=== PATIENT | female | born 1940 | race African-American/Black ===

== ENCOUNTER 2017-01-29 08:14 | Inpatient (IN) | payer OTHER ==
[2017-01-06 09:55] VITALS: BMI 35.0
--- NOTE | 2017-01-06 10:27 | PAT Medication Instructions ---
Service Date Jan 06, 2017. Current Home Medication List Ascorbic Acid (Vitamin C *), 500 MG PO QAM Aspirin (Aspirin Ec), 81 MG PO QAM Calcium/Vitamin D (Os-Franco 500 Plus D), 1 TAB PO QAM Carisoprodol (Soma), 350 MG PO QID PRN for Pain Diclofenac Sodium (Topical) (Voltaren 1% Top Gel), 1 DOSE TOP PRN Flaxseed (Linseed) (Flax Seed Oil), 1 CAP PO QAM Lisinopril (Zestril), 5 MG PO QAM Multivitamin (Multivitamin), 1 TAB PO QAM Naproxen (Aleve), 440 MG PO BID Nifedipine Ext Rel (Procardia Xl Ext Rel), 30 MG PO QAM Pravastatin (Pravachol ), 20 MG PO QAM Pregabalin (Lyrica), 150 TAB PO BID [Premarin Gel], 1 DOSE TOP Medication Instructions For Your Scheduled Surgery Naproxen (Aleve), 440 MG PO BID (stop one week prior to surgery per surgeon instructions) - Hold the following medications 10 days prior to surgery: Flaxseed (Linseed) (Flax Seed Oil), 1 CAP PO QAM - Hold the following medications 24 hours prior to surgery: Premarin Gel 1 DOSE TOP Diclofenac Sodium (Topical) (Voltaren 1% Top Gel), 1 DOSE TOP PRN - Hold the following medications the morning of surgery: Lisinopril (Zestril), 5 MG PO QAM Multivitamin (Multivitamin), 1 TAB PO QAM Carisoprodol (Soma), 350 MG PO QID PRN for Pain Calcium/Vitamin D (Os-Franco 500 Plus D), 1 TAB PO QAM Ascorbic Acid (Vitamin C *), 500 MG PO QAM - Take the following medications the morning of surgery with a sip of water: Pregabalin (Lyrica), 150 TAB PO BID Nifedipine Ext Rel (Procardia Xl Ext Rel), 30 MG PO QAM Pravastatin (Pravachol ), 20 MG PO QAM Aspirin (Aspirin Ec), 81 MG PO QAM - Take the following medications as scheduled the night before surgery: Pregabalin (Lyrica), 150 TAB PO BID Carisoprodol (Soma), 350 MG PO QID PRN for Pain If you have any questions please call us at [phone] or [phone] ( Tess) or [phone]
[2017-01-06 11:05] LABS: BASO % 0.7 %; BASO ABS # 0.03 K/uL (0-0.2); COMPLETE YES; EOS % 7.2 %; HEMATOCRIT 37.8 % (37-47); IG% 0.2 %; LYMPH % 36.8 %; LYMPH ABS # 1.63 K/uL (1.2-3.4); MEAN CELL VOLUME 95.2 fL (80-100); MEAN CORPUSCULAR HEMOGLOBIN 31.2 pg (25-34); MEAN CORPUSCULAR HGB CONC 32.8 g/dl (32-36); MEAN PLATELET VOLUME 10.2 fL (7.4-10.4); MONO % 8.1 %; PLATELET COUNT 203 K/uL (130-400); RED BLOOD COUNT 3.97 M/uL (4.2-5.4); WHITE BLOOD COUNT 4.43 K/uL (4.8-10.8)
[2017-01-06 11:06] LABS: URINE APPEARANCE CLEAR (CLEAR); URINE BILIRUBIN NEG (NEG); URINE COLOR YELLOW; URINE NITRITE NEG (NEG); URINE PH 6.5 (4.5-7.5); URINE SPECIFIC GRAVITY 1.011 (1.000-1.030); UROBILINOGEN NEG (NEG); ZZUR CULT IF INDIC CLEAN CATCH NO
[2017-01-06 11:24] LABS: PARTIAL THROMBOPLASTIN RATIO 1.3; PROTHROMBIN TIME (PATIENT) 10.6 SECONDS (9.0-12.0)
[2017-01-06 11:32] LABS: MANUAL MICROSCOPIC REQUIRED? NO; REVIEW REQ? NO
--- NOTE | 2017-01-06 11:39 | DIAGNOSTIC IMAGING REPORT ---
CHEST PREADMISSION(PA/LAT) CLINICAL HISTORY: PAT preoperative evaluation COMPARISON STUDY: No previous studies for comparison. FINDINGS: Tortuosity and ectasia thoracic aorta. Lungs are clear. Diaphragms are smooth. IMPRESSION: No acute process. Electronically signed by: Papito Singh M.D. 01/06/2017 11:37 AM Dictated Date/Time: 01/06/2017 11:37 AM
[2017-01-06 12:10] LABS: BUN/CREATININE RATIO 19.5 (10-20); CREATININE 0.86 mg/dl (0.60-1.20)
--- NOTE | 2017-01-10 17:13 | HISTORY & PHYSICAL EXAMINATION ---
DATE OF ADMISSION: 01/29/2017 PREOPERATIVE HISTORY AND PHYSICAL PATIENT OF: Lis. CHIEF COMPLAINT: Left knee pain. HISTORY OF PRESENT ILLNESS: This is a 76-year-old -[place] female presents to the office with complaints of left knee pain that she has had for about a year. Pain has become worse over the last 3-4 months. She has gone through physical therapy as well as activity modification and oral pain medication without lasting relief. She ambulates with a cane. Pain is worse with weightbearing and ambulation, and is affecting her ADLs. She feels she can no longer stand the pain and would like to proceed with total knee arthroplasty. Previous x-rays have been obtained. She denies any numbness or tingling. PAST MEDICAL HISTORY: Significant for heart murmur, hypertension, history of TIA, diet-controlled diabetes, osteoarthritis, chronic back pain, peripheral neuropathy, elevated lipids, and obesity. FAMILY HISTORY: Noncontributory. SOCIAL HISTORY: The patient is . Retired. No tobacco use, no ETOH use. PREVIOUS SURGERIES: Right knee total knee arthroplasty - June 2011, left total hip arthroplasty - December 2009, epidural injections in October 2009 and September 2016, hysterectomy, and bilateral cataract surgery. ALLERGIES: KNOWN ALLERGY TO PENICILLIN, WHICH CAUSES HIVES. PREDNISONE, WHICH CAUSES CONFUSION. QUESTIONABLE SENSITIVITY TO ASPIRIN though she takes Ecotrin daily. CURRENT MEDICATIONS: Aleve 2 tablets b.i.d., calcium daily, multivitamin daily, Ecotrin 81 mg p.o. daily, lisinopril 5 mg p.o. daily, Lyrica 75 mg p.o. b.i.d., nifedipine 30 mg p.o. b.i.d., pravastatin 20 mg p.o. daily, Soma 350 mg p.o. q.i.d., vitamin B12 daily, vitamin C daily, and Voltaren 1% topical gel q.i.d. p.r.n. REVIEW OF SYSTEMS: Significant for above-stated conditions, otherwise unremarkable. PHYSICAL EXAMINATION: GENERAL: Well-developed, well-nourished elderly -[place]ian female in no acute distress. Sitting in a chair. Alert and oriented. SKIN: Warm and dry with fair turgor. No rashes or lesions. No ecchymosis or erythema. Old scar present on her right knee. HEENT: Normocephalic, atraumatic. Eyes: PERRLA, EOMI. Nares patent bilaterally without turbinate enlargement. Oropharynx without erythema or exudate. No lesions noted. Uvula midline. Oral mucosa moist. Upper and lower denture plates are present. HEART: 3/6 systolic ejection murmur noted at the left sternal border. No gallops or rubs. LUNGS: Clear to auscultation bilaterally. No crackles, rhonchi or wheezing. Good air movement. ABDOMEN: Obese. Bowel sounds present x4; soft, nontender. No organomegaly. No masses. MUSCULOSKELETAL: Left knee has no intraarticular effusion. No redness or warmth. There is focal pain with palpation over the medial and lateral joint lines. The pain extends to the proximal tibia. Flexion to just greater than 90 degrees. Full terminal extension. Stable collateral ligaments. No defect in the patellar tendon or quadriceps tendon. She is ambulatory with an antalgic gait using her cane. NEUROLOGIC: Gross sensation is intact across the lower extremities by soft touch. Peripheral pulses are 2+. Cranial nerves II-XII are intact. IMAGING DATA: Radiographic imaging previously obtained shows end-stage DJD of the left knee with tricompartmental arthritis. Periarticular osteophytes and subchondral sclerosis are also present. IMPRESSION: Left knee end-stage degenerative joint disease. PLAN: Approximately 25 minutes was spent with the patient reviewing operative procedure, postoperative recovery, physical therapy requirements and medication use. Informed written consent was obtained to proceed with left total knee arthroplasty. Postoperative prescriptions for Percocet and Coumadin will be provided at discharge from the hospital. Anticipate discharge to a fdc facility or rehabilitation hospital. She is and does not have support at home. She already has a walker. Preoperative lab work, EKG, and chest x-ray have been ordered. She has an appointment to see her PCP, Dr. Boston for medical clearance. She also has an appointment to see her [employer] SPECIALIST on January 16 for pessary removal.
[2017-01-29] VITALS (8 sets, daily range): BP systolic 112–145; BP diastolic 72–87; PULSE 77–91; TEMP 36.5–37.3; O2SAT 93–100; Ht 154.9 cm; Wt 83.7 kg
[~2017-01-29] VITALS: Ht 154.9 cm; Wt 83.7 kg
[~2017-01-29 08:14] MED LIST: ASCA500 PO; ASPI81TA28 PO; BUPIVACAINE 0.25% 30 ML VIAL ONE; BUPIVACAINE 0.5 % 5 MG/1 ML PF 10ML VIAL ONE; CALC500C70 PO; CARI350T28 PO; DICL1GEL12 TOP; FLAX1CAP11 PO; LACTATED RINGER'S 1000ML 1,000 ML IV SCH; LACTATED RINGER'S 1000ML 500 ML IV ONE; LISI-729 PO; MULT-506 PO; NAPR1TAB9 PO; NIFE30TA83 PO; PRAV20TA PO; PREG1CAP28 PO; PREMARIN TOP; ROPIVACAINE 5MG/ML 30 ML 150 MG, BUPIVACAINE/EPINEPHR 0.5% MPF 30 ML, KETOROLAC TROMETH... INFIL SCH; TRANEXAMIC ACID INJ 1,000 MG in SODIUM CHLORIDE 0.9% 100ML 100 ML IV SCH; VANCOMYCIN INJ 1,250 MG in SODIUM CHLORIDE 0.9% 250ML 250 ML IV SCH
--- NOTE | 2017-01-29 08:32 | History & Physical Bridge Note ---
H&P Re-Evaluation Bridge Note: I have examined the patient, reviewed the History & Physical and in the interval since the performance of the History & Physical I have noted the following changes of clinical significance: No changes noted
[2017-01-29] MEDS ORDERED: PANT40TA PO (09:04)
[2017-01-29] MEDS ORDERED: MIDAZOLAM HCL 1 MG/ML 2ML VIAL ONE (09:43)
[2017-01-29] MEDS ORDERED: FENTANYL CITRATE INJ 50 MCG/1 ML 2 ML VIAL ONE ×3 (09:43→12:45)
[2017-01-29] MEDS ORDERED: ORTHO JOINT ANESTHETIC ONE (11:05)
[2017-01-29] MEDS ORDERED: POVIDONE-IODINE OP SOLN 30 ML BTL ONE (11:05)
[2017-01-29] MEDS ORDERED: LIDOCAINE HCL 2% 2 ML VIAL (20MG/ML) ONE (11:08)
[2017-01-29] MEDS ORDERED: PROPOFOL IV EMULSION 10 MG/ML 20 ML VIAL IV ONE (11:09)
[2017-01-29] MEDS ORDERED: ONDANSETRON INJ 2 MG/ML 2 ML VIAL ONE (11:09)
[2017-01-29] MEDS ORDERED: EpHEDrine SULFATE INJ 50 MG/ML AMP ONE (12:46)
[2017-01-29] MEDS ORDERED: DEXAMETHASONE SOD INJ 4 MG/ML VIAL ONE (12:53)
--- NOTE | 2017-01-29 12:57 | [facility] Post Operative Brief Note ---
Immediate Operative Summary Operative Date Jan 29, 2017. Pre-Operative Diagnosis Left Knee End-Stage Degenerative Joint Disease Post-Operative Diagnosis Left Knee End-Stage Degenerative Joint Disease Procedure(s) Performed Left Total Knee Arthroplasty Surgeon Dr. Hays Relay Shop Supervisor Surgeon(s) Dr. Zeyad Quintero (Fellow)/BLANCA Hamilton Estimated Blood Loss 75 ML Findings varus/djd Fluids (cc crystalloids) 1500cc Specimens A. Left Knee Bone and Tissue Drains none Anesthesia lma/block Complication(s) None Disposition Recovery Room / PACU
--- NOTE | 2017-01-29 13:13 | OPERATIVE REPORT ---
DATE OF OPERATION: 01/29/2017 SURGEON: Dr. Hays. FIRE ADJUSTER: Dr. Koch. SECOND FIRE ADJUSTER: Maddy. No resident available. PREOPERATIVE DIAGNOSIS: Osteoarthritis with varus deformity, left knee. POSTOPERATIVE DIAGNOSIS: Same. OPERATION PERFORMED: Cemented left total knee replacement. PERIOPERATIVE SITUATION: Medically cleared female with intractable pain, varus, x-rays revealing end-stage disease with tricompartmental osteoarthritis, severe medially. At this point in time, wants to proceed with surgical treatment. OPERATION: The patient appropriately identified, site verified, consent verified, vancomycin confirmed as being given and TXA confirmed as being given. The left lower extremity was prepped and draped in usual routine fashion. Tourniquet was inflated to 300 mmHg for a total of 56 minutes. Midline exposure utilized, parapatellar arthrotomy performed, appropriate soft tissue release performed, synovectomy completed, patella everted. Distal femur resected 12 mm, proximal tibia resected 4 mm and extension gap was excellent. Femur was sized between a 2-1/2 and 3 was close to 3, so we measured 3 and cut 3. There were no problems. The flexion gap was excellent. The box cut was then made and the size 3 trial fit well. The tibia was then broached and reamed to a 3 and appropriate spacer placed and a 10 mm spacer fit well good tracking of the patella. The patella was sized to a 38, it was resected leaving 15 mm and the trial tracked well. All trial implants were then removed, the wound irrigated with Betadine pulsavaced and injected with ortho mix and the permanent cemented into position. After 12 minutes, the tourniquet deflated. After 14 minutes the knee flexed, the trial spacer removed and the wound irrigated with Betadine. Minor cement removal occurred. The permanent spacer was then seated, the knee reduced and then closed with #1 Ethibond, #1 Vicryl, 2-0 Vicryl and stainless steel clips. Appropriate dressing applied and patient transferred to recovery room in satisfactory condition having tolerated the procedure well. ESTIMATED BLOOD LOSS: 75 mL. CRYSTALLOID: 1600 mL. DVT prophylaxis with Coumadin. I attest to the content of the Intraoperative Record and any orders documented therein. Any exceptio ns are noted below.
[2017-01-29] MEDS ORDERED: ALUMINUM/MAGNESIUM/SIMETH (MAALOX MAX) 30 ML UDC PO PRN (13:15)
[2017-01-29] MEDS ORDERED: LABETALOL HCL IV 5 MG/ML 20ML IV PRN (13:15)
[2017-01-29] MEDS ORDERED: ATROPINE SULFATE 0.1 MG/ML 5ML SYR IV PRN (13:15)
[2017-01-29] MEDS ORDERED: DiphenhydrAMINE HCL 50 MG/ML VIAL IV PRN (13:15)
[2017-01-29] MEDS ORDERED: BISACODYL 10 MG SUPP PR PRN (13:15)
[2017-01-29] MEDS ORDERED: NALOXONE HCL 0.4 MG/1 ML VIAL/CARP IV PRN (13:15)
[2017-01-29] MEDS ORDERED: EpHEDrine SULFATE INJ 50 MG/ML AMP IV PRN (13:15)
[2017-01-29] MEDS ORDERED: ACETAMINOPHEN 325 MG TAB PO PRN (13:15)
[2017-01-29] MEDS ORDERED: OXYCODONE HCL IR 5 MG TAB (IMMEDIATE RELEASE) PO PRN (13:15)
[2017-01-29] MEDS ORDERED: METOCLOPRAMIDE HCL INJ 5 MG/ML 2 ML VIAL IV PRN (13:15)
[2017-01-29] MEDS ORDERED: ACETAMINOPHEN IV 100 ML IV PRN (13:15)
[2017-01-29] MEDS ORDERED: ONDANSETRON INJ 2 MG/ML 2 ML VIAL IV PRN ×2 (13:15)
[2017-01-29] MEDS ORDERED: PROMETHAZINE HCL INJ 12.5 MG in SODIUM CHLORIDE 0.9% 50ML 50 ML IV PRN (13:15)
[2017-01-29] MEDS ORDERED: MoRPHine SULFATE 2 MG/ML CARP IV PRN (13:15)
[2017-01-29] MEDS ORDERED: HYDROmorphone INJ 1 MG/ML SYR IV PRN (13:15)
[2017-01-29] MEDS ORDERED: MAGNESIUM HYDROXIDE SUSP 30 ML UDC PO PRN (13:15)
[2017-01-29] MEDS ORDERED: MoRPHine SULFATE 4 MG/ML 1 ML CARP\\VIAL IV PRN (13:30)
--- NOTE | 2017-01-29 14:00 | DIAGNOSTIC IMAGING REPORT ---
LEFT KNEE 1 OR 2 VIEWS ROUTINE CLINICAL HISTORY: Left knee degenerative arthritis. Arthroplasty. COMPARISON: Left knee radiographs August 08, 2016. FINDINGS: Alignment of the total left knee arthroplasty is anatomic. There is no periprosthetic fracture or unexpected radiopaque foreign body. Skin adriana are present. IMPRESSION: Expected findings following total left knee arthroplasty. Electronically signed by: Marko Eastman M.D. 01/29/2017 1:57 PM Dictated Date/Time: 01/29/2017 1:57 PM
--- NOTE | 2017-01-29 14:02 | PROGRESS NOTE ---
DATE: 01/29/2017 Postop check. The patient seen in recovery room. She is awake, alert. Has no nausea, vomiting, chest pain, shortness of breath, fever or chills. Vital signs are stable. She is afebrile. Neurovascular check femoral sciatic nerve is excellent. Hip is located. X-ray AP and lateral of the left knee reveals well fixed, well aligned knee replacement. ASSESSMENT: Doing well. Continue care pathway.
--- NOTE | 2017-01-29 14:04 | Anesthesiology Progress Note ---
Anesthesia Post Op Note Date & Time Jan 29, 2017 at 14:02 Vital Signs Pain Intensity: 0 Vital Signs Past 12 Hours Date Time Temp Pulse Resp B/P Pulse Ox O2 Delivery O2 Flow Rate FiO2 01/29/17 13:50 37.0 85 16 156/89 99 Nasal Cannula 2 01/29/17 13:41 84 11 01/29/17 13:41 84 11 156/87 98 01/29/17 13:36 84 21 01/29/17 13:36 84 21 145/75 100 01/29/17 13:31 89 20 152/84 97 01/29/17 13:31 87 20 01/29/17 13:28 156/88 01/29/17 13:25 82 16 148/79 98 Mask 10 01/29/17 13:18 37.0 83 14 128/70 99 Mask 10 01/29/17 09:04 36.8 77 18 145/84 100 Room Air Notes Mental Status: alert / awake / arousable, participated in evaluation Pt Amnestic to Procedure: Yes Nausea / Vomiting: adequately controlled Pain: adequately controlled Airway Patency, RR, SpO2: stable & adequate BP & HR: stable & adequate Hydration State: stable & adequate Anesthetic Complications: no major complications apparent
--- NOTE | 2017-01-29 14:11 | OPERATIVE REPORT ---
DATE OF OPERATION: 01/29/2017 PREOPERATIVE DIAGNOSIS: Left knee end-stage degenerative joint disease. POSTOPERATIVE DIAGNOSIS: Left knee same. PROCEDURE: Left knee total knee arthroplasty using DePuy implants. SURGEON: Dr. Hays. RAG WASHER: Dr. Koch. SECOND EXTRUSION PRESS SUPERVISOR: Brain Castañeda PA-C. HISTORY OF PRESENT ILLNESS: This 76-year-old female presented to the office with complaints of left knee pain that had been ongoing for several months. Pain had become worse with time. It was affecting her ADLs. She elected to proceed with surgical intervention after being educated about potential risks and outcomes. OPERATION: The patient was administered regional block and then taken to the operating room, where she was given general anesthesia. She was prepped and draped in the usual sterile fashion. Please see Dr. Hays's operative report for specifics of the procedure. I was present for the entire case from initial patient positioning through final wound closure. Assistance was provided in patient positioning, tissue retraction, hemostasis, trial implant placement, final implant placement, and final wound closure. The patient was taken to the recovery room in satisfactory condition. I attest to the content of the Intraoperative Record and any orders documented therein. Any exceptio ns are noted below.
[2017-01-29] MEDS ORDERED: D5W AND 1/2NSS + 20MEQ KCL 1,000 ML IV SCH (15:15)
--- NOTE | 2017-01-29 15:45 | Medical Consult ---
Consultation Date of Consultation: Jan 29, 2017. Attending Physician: Devan Hays M.D. Reason for Consultation: med mgmt History of Present Illness This is a 76 y/o male with PMHx of HTN, Dyslipidemia and other problems as outlined below who presents POD 0 s/p L TKA performed by Dr. Loredo. Pt is doing well post-operatively. She denies any pain. Pt denies fever/chills, chest pain, SOB, abd pain, N/V, bowel or bladder issues, LE edema ,calf pain, lightheadedness/dizziness. Past Medical/Surgical History Medical Problems: (1) Depression Status: Chronic (2) Dyslipidemia Status: Chronic (3) GERD (gastroesophageal reflux disease) Status: Chronic (4) HTN (hypertension) Status: Chronic Surgical Problems: (1) H/O cataract removal with insertion of prosthetic lens Status: Resolved (2) History of total left hip arthroplasty Status: Resolved (3) Hx of total knee arthroplasty Permanent Comment: R knee Status: Resolved Social History Smoking Status: Never Smoker Alcohol Use: none Drug Use: none Allergies Coded Allergies: Penicillin G (Verified Allergy, Intermediate, HIVES, 01/29/17) Aspirin (Verified Allergy, Unknown, RASH, 01/29/17) REACTION IS FUNGAL RASH Statins (Unverified Allergy, Unknown, MUSCLE ACHES, 01/29/17) Cyclobenzaprine (Verified Adverse Reaction, Unknown, sedation per PCP note , 01/29/17) Prednisone (Verified Adverse Reaction, Unknown, LOOPY DISORIENTED, 01/29/17 ) Home Medications Active Reported Protonix (Pantoprazole Sodium) 40 Mg Tab 1 Tab PO DAILY 30 Days [Premarin Gel] 1 Dose TOP Aspirin Ec (Aspirin) 81 Mg Tab 81 Mg PO QAM Os-Franco 500 Plus D (Calcium/Vitamin D) Tab 1 Tab PO QAM Aleve (Naproxen) 220 Mg Tab 440 Mg PO BID Pravachol (Pravastatin Sodium) 20 Mg Tab 20 Mg PO QAM Voltaren 1% Top Gel (Diclofenac Sodium (Topical)) 1 % Gel 1 Dose TOP PRN Zestril (Lisinopril) 5 Mg Tab 5 Mg PO QAM Flax Seed Oil (Flaxseed (Linseed)) 1 Cap Cap 1 Cap PO QAM Lyrica (Pregabalin) 75 Mg Cap 150 Tab PO BID Vitamin C * (Ascorbic Acid) 500 Mg Tab 500 Mg PO QAM Multivitamin (Multivitamins) Tab 1 Tab PO QAM Soma (Carisoprodol) 350 Mg Tab 350 Mg PO QID PRN Procardia Xl Ext Rel (Nifedipine) 30 Mg Tabcr 30 Mg PO QAM Current Inpatient Medications Current Inpatient Medications Medications (Trade) Dose Ordered Sig/Jesús Route Start Time Stop Time Status Last Admin Dose Admin Vancomycin HCl 1250 mg/Sodium Chloride 275 ml @ 125 mls/hr 0600 IV 01/29/17 06:00 01/29/17 16:00 01/29/17 08:58 125 MLS/HR Tranexamic Acid/ Sodium Chloride (Cyklokapron Inj/ Nss 100ml) 110 ml @ 660 mls/hr TODAY@0600 IV 01/29/17 06:00 01/29/17 15:59 01/29/17 10:26 660 MLS/HR Hydromorphone HCl (Dilaudid Inj) 0.2 mg Q5M PRN IV 01/29/17 13:15 01/29/17 18:15 Naloxone HCl (Narcan Inj) 0.2 mg Q2M PRN IV 01/29/17 13:15 01/29/17 18:15 Ondansetron HCl 4 mg 4 mg ONE PRN IV 01/29/17 13:15 01/29/17 18:15 Promethazine HCl/ Sodium Chloride (Phenergan Inj/ Nss 50ml) 50.5 ml @ 202 mls/hr ONE PRN IV 01/29/17 13:15 01/29/17 18:15 Labetalol HCl (Normodyne IV) 5 mg Q5M PRN IV 01/29/17 13:15 01/29/17 18:15 Ephedrine Sulfate (EpHEDrine SULFATE INJ) 5 mg Q5M PRN IV 01/29/17 13:15 01/29/17 18:15 Atropine Sulfate 0.5 mg 0.5 mg Q1M PRN IV 01/29/17 13:15 01/29/17 18:15 Potassium Chloride/Dextrose/ Sod Cl 1,000 ml @ 100 mls/hr Q10H IV 01/29/17 15:15 01/30/17 13:12 Vancomycin HCl/ Sodium Chloride (Vancomycin Inj/ Nss 250ml) 275 ml @ 125 mls/hr TODAY@2100 IV 01/29/17 21:00 01/29/17 23:11 Ketorolac Tromethamine (Toradol Inj) 15 mg Q6H IV. 01/29/17 16:00 01/30/17 13:14 Oxycodone HCl (Roxicodone Immediate Rel Tab) 1 TABLET FOR PAIN RATING... Q4H PRN PO 01/29/17 13:15 02/12/17 13:14 Morphine Sulfate (MoRPHine SULFATE INJ) 2 mg Q1H PRN IV 01/29/17 13:15 02/12/17 13:14 Acetaminophen (Tylenol Tab) 650 mg Q6H PRN PO 01/29/17 13:15 02/28/17 13:14 Magnesium Hydroxide (Milk Of Magnesia Susp) 30 ml Q6H PRN PO 01/29/17 13:15 02/28/17 13:14 Bisacodyl (Dulcolax Supp) 10 mg DAILY PRN GA 01/29/17 13:15 02/28/17 13:14 Docusate Sodium (coLACE CAP) 100 mg BID PO 01/29/17 21:00 02/28/17 20:59 Diphenhydramine HCl (Benadryl Inj) 25 mg Q8H PRN IV 01/29/17 13:15 02/28/17 13:14 Al Hydrox/Mg Hydrox/Simethicone (Maalox Max Susp) 15 ml Q4H PRN PO 01/29/17 13:15 02/28/17 13:14 Multivitamins (Multivitamin Tab) 1 tab QAM PO 01/30/17 09:00 03/01/17 08:59 Ondansetron HCl (Zofran Inj) 4 mg Q6H PRN IV 01/29/17 13:15 02/28/17 13:14 Metoclopramide HCl (Reglan Inj) 10 mg Q6H PRN IV 01/29/17 13:15 02/28/17 13:14 Ferrous Gluconate (Ferrous Gluconate Tab) 324 mg TIDM PO 01/29/17 17:45 02/28/17 17:59 Pantoprazole Sodium 40 mg 40 mg QAM PO 01/30/17 09:00 03/01/17 08:59 Tranexamic Acid/ Sodium Chloride (Cyklokapron Inj/ Nss 100ml) 110 ml @ 660 mls/hr TODAY@1900 IV 01/29/17 19:00 01/29/17 19:09 Aspirin (Ecotrin Tab) 81 mg QAM PO 01/30/17 09:00 03/01/17 08:59 Lisinopril (Zestril Tab) 5 mg QAM PO 01/30/17 09:00 03/01/17 08:59 Nifedipine (Procardia Xl Tab) 30 mg QAM PO 01/30/17 09:00 03/01/17 08:59 Pravastatin Sodium (Pravachol Tab) 20 mg QAM PO 01/30/17 09:00 03/01/17 08:59 Pregabalin 150 mg 150 mg BID PO 01/29/17 21:00 02/28/17 20:59 Acetaminophen (Ofirmev Iv) 100 ml @ 400 mls/hr Q8H PRN IV 01/29/17 13:15 01/30/17 11:00 Morphine Sulfate (MoRPHine SULFATE INJ) 4 mg Q1H PRN IV 01/29/17 13:30 02/12/17 13:29 Review of Systems Constitutional: No chills, No fatigue, No fever, No sweats, No weakness Eyes: No worsening of vision ENT: No hearing loss Respiratory: No cough, No shortness of breath Cardiovascular: No chest pain, No claudication, No edema Abdomen: No constipation, No diarrhea, No nausea, No pain, No vomiting Musculoskeletal: No joint pain Genitourinary - Female: No dysuria Neurologic: No weakness Psychiatric: No depression symptoms Endocrine: No fatigue Hematologic / Lymphatic: No abnormal bleeding/bruising Integumentary: No new/changing skin lesions Physical Exam Date Time Temp Pulse Resp B/P Pulse Ox O2 Delivery O2 Flow Rate FiO2 01/29/17 14:30 96 Nasal Cannula 2.0 01/29/17 14:30 36.7 91 16 133/79 96 Nasal Cannula 2.0 01/29/17 14:23 88 18 01/29/17 14:23 88 18 96 01/29/17 14:21 156/86 01/29/17 14:18 86 18 01/29/17 14:18 87 18 97 01/29/17 14:15 149/84 01/29/17 14:13 86 17 01/29/17 14:13 86 17 98 01/29/17 14:12 86 15 100 01/29/17 14:12 86 15 01/29/17 14:11 158/87 01/29/17 14:07 87 15 99 01/29/17 14:07 87 15 01/29/17 14:06 154/95 01/29/17 14:02 86 17 98 01/29/17 14:02 86 17 01/29/17 14:01 153/87 01/29/17 13:57 87 15 01/29/17 13:57 87 15 99 01/29/17 13:56 156/89 01/29/17 13:52 84 21 01/29/17 13:52 83 21 98 01/29/17 13:51 157/84 01/29/17 13:50 37.0 85 16 156/89 99 Nasal Cannula 2 01/29/17 13:47 84 22 97 01/29/17 13:47 85 22 01/29/17 13:46 150/86 01/29/17 13:42 85 16 98 01/29/17 13:42 85 16 01/29/17 13:41 84 11 01/29/17 13:41 84 11 156/87 98 01/29/17 13:36 84 21 01/29/17 13:36 84 21 145/75 100 01/29/17 13:31 89 20 152/84 97 01/29/17 13:31 87 20 01/29/17 13:28 156/88 01/29/17 13:25 82 16 148/79 98 Mask 10 01/29/17 13:18 37.0 83 14 128/70 99 Mask 10 01/29/17 09:04 36.8 77 18 145/84 100 Room Air General Appearance: WD/WN, no apparent distress, + pertinent finding (Pt is laying in bed with family at bedside ) Head: normocephalic, atraumatic Eyes: normal inspection ENT: hearing grossly normal Neck: supple Respiratory/Chest: chest non-tender, lungs clear, normal breath sounds, no respiratory distress Cardiovascular: regular rate, rhythm, + systolic murmur Abdomen/GI: normal bowel sounds, non tender, soft Back: normal inspection Extremities/Musculoskelatal: no calf tenderness, no pedal edema, + pertinent finding (surgical dressing in place over L knee; no drain noted) Neurologic/Psych: alert, normal mood/affect, oriented x 3 Skin: normal color, warm/dry Laboratory Results Last 24 Hours Test 01/29/17 08:54 01/29/17 13:16 Bedside Glucose 102 mg/dl 123 mg/dl Assessment & Plan L KNEE DJD S/P L TKA -POD 0; surgery performed by Dr. Loredo -post-operative pain well managed -monitor for acute blood loss with daily H&H -hold ASA until cleared with surgical team -pt encouraged to utilize spirometry to prevent post-op infection -PT/OT -activity and wound care orders per ortho protocol -will continue to follow DIET-CONTROLLED DM 2 -no longer requiring medication -diabetic diet -monitor BSG AC HS HTN -BP stable -cont lisinopril and nifedipine -monitor DYSLIPIDEMIA -cont statin DEPRESSION -stable -cont Celexa GERD -cont PPI DVT PROPHYLAXIS -per ortho protocol CODE STATUS -FULL CODE status DISPO -per ortho. Pt seen in collaboration with Dr. Presley. Please see her addendum for further details. Thanks! -Of note: patient will be followed by Dr. Jin starting tomorrow AM.
[2017-01-29] MEDS: KETOROLAC TROMETHAMINE 15 MG/ML VIAL IV. SCH ×2 (15:46→21:42)
[2017-01-29] MEDS ORDERED: WARFARIN SOD 5 MG TAB PO ONE (16:00)
--- NOTE | 2017-01-29 16:46 | Progress Note ---
Progress Note Date of Service Jan 29, 2017. Progress Note Significant for heart murmur, hypertension, history of TIA, diet-controlled diabetes, osteoarthritis, chronic back pain, peripheral neuropathy, elevated lipids, and obesity. Patient was seen and evaluated with FANI Villa. Patient is status post left knee arthroplasty. Patient s pain is well controlled. No chest pain, nausea, vomiting, fever, chills. Exam: Gen: AAOX3, no distress Lungs- AEBE, no wheezing Heart- S1, S2 normal , murmur + Ext- S/P left knee arthroplasty A/P: S/P LEFT KNEE ARTHROPLASY pod # 0 -Pain mx, Wound care, DVT prophylaxis per primary team -Monitor H & H HTN- Stable -Continue with home medication DIABETES MELLITUS, DIET CONTROLLED -ISS, Accuchecks DVT PROPHYLAXIS Per primary team
[2017-01-29] MEDS ORDERED: WARF2TAB PO (16:47)
[2017-01-29] MEDS ORDERED: OXYC-57 PO (16:47)
[2017-01-29] MEDS: FERROUS GLUCONATE 324 MG TAB PO SCH (17:38)
[2017-01-29] MEDS ORDERED: TRANEXAMIC ACID INJ 1,000 MG in SODIUM CHLORIDE 0.9% 100ML 100 ML IV SCH (19:00)
[2017-01-29] MEDS: PREGABALIN 75 MG CAP PO SCH (20:53)
[2017-01-29] MEDS: DOCUSATE SODIUM 100 MG CAP PO SCH (20:54)
[2017-01-29] MEDS ORDERED: VANCOMYCIN INJ 1,250 MG in SODIUM CHLORIDE 0.9% 250ML 250 ML IV SCH (21:00)
[2017-01-29] MEDS ORDERED: NURSING VERBAL MED ORDER ONE (21:15)
[2017-01-30] VITALS (8 sets, daily range): BP systolic 96–147; BP diastolic 56–82; PULSE 64–102; TEMP 36.3–37.6; O2SAT 91–98
[2017-01-30] MEDS: KETOROLAC TROMETHAMINE 15 MG/ML VIAL IV. SCH ×2 (04:22→10:32)
[2017-01-30 06:33] LABS: MEAN CELL VOLUME 95.8 fL (80-100); MEAN CORPUSCULAR HEMOGLOBIN 31.3 pg (25-34); MEAN CORPUSCULAR HGB CONC 32.7 g/dl (32-36); PLATELET COUNT 155 K/uL (130-400); RED BLOOD COUNT 3.13 M/uL (4.2-5.4); WHITE BLOOD COUNT 10.27 K/uL (4.8-10.8)
[2017-01-30 06:56] LABS: BUN/CREATININE RATIO 15.9 (10-20); CALCIUM 8.1 mg/dl (8.5-10.1); CREATININE 0.89 mg/dl (0.60-1.20); POTASSIUM 3.8 mmol/L (3.5-5.1)
--- NOTE | 2017-01-30 07:15 | PROGRESS NOTE ---
DATE: 01/30/2017 Status post left total knee replacement, postop day #1 and doing well. Has no major issues of pain, nausea, vomiting, chest pain, shortness of breath, fever or chills. Vital signs are stable. She is afebrile. Wound dressing clean, dry and intact. Femoral sciatic nerve intact. No evidence of DVT. Hematocrit stable at 30. INR 1.0. Chemistry is pending. Glucose is in the 180 range. ASSESSMENT: Status post left total knee replacement. Continue with care pathway, Social service PT, OT assessments today. Potential transfer to [facility] per her request. We will see if that is available. She lives alone. She will need social service assessment NITHYA.
[2017-01-30] MEDS: DOCUSATE SODIUM 100 MG CAP PO SCH ×2 (08:44→20:56)
[2017-01-30] MEDS: ASPIRIN 81 MG ECTAB PO SCH (08:44)
[2017-01-30] MEDS: PREGABALIN 75 MG CAP PO SCH ×2 (08:44→20:59)
[2017-01-30] MEDS: FERROUS GLUCONATE 324 MG TAB PO SCH ×3 (08:44→18:13)
[2017-01-30] MEDS: MULTIVITAMIN TAB PO SCH (08:45)
[2017-01-30] MEDS: PRAVASTATIN SOD 20 MG TAB PO SCH (08:45)
[2017-01-30] MEDS: PANTOprazole SOD 40 MG TAB PO SCH (08:45)
--- NOTE | 2017-01-30 08:50 | Orthopedic Progress Note ---
Orthopedic Progress Note Date of Service Jan 30, 2017. Subjective Post OP Day: 1 Reports: feeling well, pain controlled w PO medications, Denies: SOB, calf pain , chest pain, complaints, light headedness, nausea / vomiting, using DIRECTOR OF REIMBURSEMENT Objective calves soft nontender, N/V intact, capillary refill less than 2 sec., dressing C /D/I, incision C/D/I, A&O x3, toes mobile, CMS intact Date Time Temp Pulse Resp B/P Pulse Ox O2 Delivery O2 Flow Rate FiO2 01/30/17 07:56 36.7 93 16 110/72 91 Room Air 01/30/17 07:25 Room Air 01/30/17 03:28 37.1 102 16 133/79 91 Room Air 01/30/17 00:00 Room Air 01/29/17 23:15 36.8 78 16 112/72 93 Room Air 01/29/17 20:19 36.7 85 16 130/73 95 Room Air 01/29/17 17:29 37.3 81 19 145/79 100 Nasal Cannula 2.0 01/29/17 16:35 36.7 89 16 129/79 100 Nasal Cannula 2.0 01/29/17 15:30 Room Air 01/29/17 15:28 36.5 87 16 138/87 100 Room Air 2.0 01/29/17 15:00 87 16 133/77 98 Nasal Cannula 2.0 01/29/17 14:30 96 Nasal Cannula 2.0 01/29/17 14:30 36.7 91 16 133/79 96 Nasal Cannula 2.0 01/29/17 14:23 88 18 01/29/17 14:23 88 18 96 01/29/17 14:21 156/86 01/29/17 14:18 86 18 01/29/17 14:18 87 18 97 01/29/17 14:15 149/84 01/29/17 14:13 86 17 01/29/17 14:13 86 17 98 01/29/17 14:12 86 15 100 01/29/17 14:12 86 15 01/29/17 14:11 158/87 01/29/17 14:07 87 15 99 01/29/17 14:07 87 15 01/29/17 14:06 154/95 01/29/17 14:02 86 17 98 01/29/17 14:02 86 17 01/29/17 14:01 153/87 01/29/17 13:57 87 15 01/29/17 13:57 87 15 99 01/29/17 13:56 156/89 01/29/17 13:52 84 21 01/29/17 13:52 83 21 98 01/29/17 13:51 157/84 01/29/17 13:50 37.0 85 16 156/89 99 Nasal Cannula 2 01/29/17 13:47 84 22 97 01/29/17 13:47 85 22 01/29/17 13:46 150/86 01/29/17 13:42 85 16 98 01/29/17 13:42 85 16 01/29/17 13:41 84 11 01/29/17 13:41 84 11 156/87 98 01/29/17 13:36 84 21 01/29/17 13:36 84 21 145/75 100 01/29/17 13:31 89 20 152/84 97 01/29/17 13:31 87 20 01/29/17 13:28 156/88 01/29/17 13:25 82 16 148/79 98 Mask 10 01/29/17 13:18 37.0 83 14 128/70 99 Mask 10 01/29/17 09:04 36.8 77 18 145/84 100 Room Air Laboratory Results 24 Hours: Test 01/30/17 05:40 Hematocrit 30.0 % Hemoglobin 9.8 g/dL Prothromb Time International Ratio 1.0 Prothrombin Time 11.0 SECONDS Assessment & Plan Assessment: Day 1 s/p Left total knee arthroplasty Plan: PT/OT today Ice with EZ wrap WBAT on left lower extremity with immobilizer and walker for first 48 hrs post op PO Coumadin for DVT Prophylaxis (INR goal of 1.8-2.2) Teds and foot pumps for DVT Prophylaxis. Awaiting confirmation for Rehab Facility ([facility]) Pain control with PO meds. Possible discharge today if bed at Rehab Facility available. Discharge Planning Discharge Planning: rehab hospital Pain Management: Percocet DVT Prophylaxis: TEDs, SCDs, Coumadin Therapy: Physical Therapy, Occupational Therapy
[2017-01-30] MEDS ORDERED: LISINOPRIL 5 MG TAB PO SCH (09:00)
[2017-01-30] MEDS ORDERED: NIFEdipine 30 MG CR TAB PO SCH (09:00)
[2017-01-30] MEDS ORDERED: SODIUM CHLORIDE 0.9% 1000ML 1,000 ML IV SCH (14:30)
[2017-01-30 15:13] LABS: HEMATOCRIT 29.2 % (37-47)
[2017-01-30] MEDS ORDERED: NSS + 20MEQ KCL 1000ML 1,000 ML IV SCH (15:15)
[2017-01-30] MEDS ORDERED: WARFARIN SOD 5 MG TAB PO SCH (16:00)
[2017-01-30 16:01] LABS: BUN/CREATININE RATIO 16.4 (10-20); CALCIUM 8.3 mg/dl (8.5-10.1); CREATININE 1.3 mg/dl (0.60-1.20); POTASSIUM 4.1 mmol/L (3.5-5.1)
[2017-01-30] MEDS ORDERED: HYDROmorphone INJ 0.5 MG/0.5 ML SYR IV PRN (16:30)
--- NOTE | 2017-01-30 16:38 | PROGRESS NOTE ---
DATE: 01/30/2017 The patient felt a little fuzzy this morning around medication. She is feeling better now. At this point in time she has some blood work ordered, which reveals a potassium to be 4.1 and her hematocrit is stable at 30. She does not need any other blood work ordered, I will cancel this. She does not need IV fluid, she is not dehydrated. She needs to have encouraged p.o. intake and encouraged sitting. Need to hold her Vasotec since the hypotension is likely based on medication, discontinue the narcotics and discontinue the Benadryl it is not indicated in this age group, p.r.n. pain medication with Tylenol and Dilaudid.
--- NOTE | 2017-01-30 17:29 | Progress Note ---
Medicine Progress Note Date & Time of Visit: Jan 30, 2017 at 17:20. Subjective patient seen resting in bed states she feels dizzy when standing, feels "foggy", upper extremities feel weak denies any focal weakness, numbness, slurring of speech denies chest pain, dyspnea, nausea knee pain is minimal no other symptoms Objective Last 8 Hrs Date Time Temp Pulse Resp B/P Pulse Ox O2 Delivery O2 Flow Rate FiO2 01/30/17 15:47 37.6 92 17 127/82 98 Room Air 01/30/17 13:14 95 18 96/56 95 Room Air 01/30/17 12:30 36.8 64 12 98/63 92 Room Air Physical Exam: General- oriented x 3, not in distress, speaks in sentences with no effort Head- atraumatic Eyes- EOMI, anicteric ENT- (+) dry oral mucosa Neck- supple, no JVD, no adenopathy, Lungs- clear breath sounds bilaterally Heart- normal rate, regular rhythm; no murmurs Abdomen- normal bowel sounds, soft, nontender Extremities- no pretibial edema left knee with dressing in place Neuro- alert, oriented x 3; no gross focal deficits Skin- warm & dry Laboratory Results: Last 24 Hours Test 01/29/17 20:54 01/30/17 05:40 01/30/17 08:07 01/30/17 12:08 Bedside Glucose 185 mg/dl 134 mg/dl 183 mg/dl White Blood Count 10.27 K/uL Red Blood Count 3.13 M/uL Hemoglobin 9.8 g/dL Hematocrit 30.0 % Mean Corpuscular Volume 95.8 fL Mean Corpuscular Hemoglobin 31.3 pg Mean Corpuscular Hemoglobin Concent 32.7 g/dl RDW Standard Deviation 47.2 fL RDW Coefficient of Variation 13.5 % Platelet Count 155 K/uL Mean Platelet Volume 10.0 fL Prothrombin Time 11.0 SECONDS Prothromb Time International Ratio 1.0 Sodium Level 140 mmol/L Potassium Level 3.8 mmol/L Chloride Level 107 mmol/L Carbon Dioxide Level 27 mmol/L Anion Gap 6.0 mmol/L Blood Urea Nitrogen 14 mg/dl Creatinine 0.89 mg/dl Est Creatinine Clear Calc Drug Dose 51.9 ml/min Estimated GFR () 72.5 Estimated GFR (Non- 62.5 BUN/Creatinine Ratio 15.9 Random Glucose 164 mg/dl Calcium Level 8.1 mg/dl Test 01/30/17 15:05 01/30/17 17:05 Hemoglobin 9.5 g/dL Hematocrit 29.2 % Sodium Level 139 mmol/L Potassium Level 4.1 mmol/L Chloride Level 106 mmol/L Carbon Dioxide Level 29 mmol/L Anion Gap 4.0 mmol/L Blood Urea Nitrogen 21 mg/dl Creatinine 1.30 mg/dl Est Creatinine Clear Calc Drug Dose 35.5 ml/min Estimated GFR () 45.8 Estimated GFR (Non- 39.5 BUN/Creatinine Ratio 16.4 Random Glucose 181 mg/dl Calcium Level 8.3 mg/dl Magnesium Level 2.0 mg/dl Bedside Glucose 167 mg/dl Assessment & Plan DIZZINESS - possibly from Oxycodone d/c Oxycodone for now monitor while on narcotics - possibly from Borderline BP HOLD Lisinopril, Nifedipine IV fluids recommended monitor BP ELEVATED CREA - crea increased from 0.8 to 1.3 - IV fluids recommended monitor crea ANEMIA - monitor H&H L KNEE DJD S/P L TKA - post op pain well controlled coumadin started for DVT prophylaxis DIET-CONTROLLED DM 2 -diabetic diet -monitor BSG AC HS HTN management as noted below DYSLIPIDEMIA -cont statin DEPRESSION -stable -cont Celexa GERD -cont PPI DVT PROPHYLAXIS on coumadin Thank you for this consultation. We will follow the patient with you during their hospital stay. You can reach a member of the [facility] Hospitalist Team 28/04 via pager @ . Current Inpatient Medications: Current Inpatient Medications Medications (Trade) Dose Ordered Sig/Jesús Route Start Time Stop Time Status Last Admin Dose Admin Acetaminophen (Tylenol Tab) 650 mg Q6H PRN PO 01/29/17 13:15 02/28/17 13:14 Magnesium Hydroxide (Milk Of Magnesia Susp) 30 ml Q6H PRN PO 01/29/17 13:15 02/28/17 13:14 Bisacodyl (Dulcolax Supp) 10 mg DAILY PRN NH 01/29/17 13:15 02/28/17 13:14 Docusate Sodium (coLACE CAP) 100 mg BID PO 01/29/17 21:00 02/28/17 20:59 01/30/17 08:44 100 MG Al Hydrox/Mg Hydrox/Simethicone (Maalox Max Susp) 15 ml Q4H PRN PO 01/29/17 13:15 02/28/17 13:14 Multivitamins (Multivitamin Tab) 1 tab QAM PO 01/30/17 09:00 03/01/17 08:59 01/30/17 08:45 1 TAB Ondansetron HCl (Zofran Inj) 4 mg Q6H PRN IV 01/29/17 13:15 02/28/17 13:14 Metoclopramide HCl (Reglan Inj) 10 mg Q6H PRN IV 01/29/17 13:15 02/28/17 13:14 Ferrous Gluconate (Ferrous Gluconate Tab) 324 mg TIDM PO 01/29/17 17:45 02/28/17 17:59 01/30/17 12:41 324 MG Pantoprazole Sodium (Protonix Tab) 40 mg QAM PO 01/30/17 09:00 03/01/17 08:59 01/30/17 08:45 40 MG Aspirin (Ecotrin Tab) 81 mg QAM PO 01/30/17 09:00 03/01/17 08:59 01/30/17 08:44 81 MG Pravastatin Sodium (Pravachol Tab) 20 mg QAM PO 01/30/17 09:00 03/01/17 08:59 01/30/17 08:45 20 MG Pregabalin (Lyrica Cap) 150 mg BID PO 01/29/17 21:00 02/28/17 20:59 01/30/17 08:44 150 MG Hydromorphone HCl 0.5 mg 0.5 mg Q2H PRN IV 01/30/17 16:30 02/13/17 16:29 Acetaminophen/ Empty Bag (Ofirmev Iv/ Empty Iv Bag 100ml) 100 ml @ 400 mls/hr Q8H IV 01/30/17 18:00 03/01/17 17:59
[2017-01-30] MEDS: ACETAMINOPHEN IV 1,000 MG in EMPTY BAG 0 ML IV SCH (18:14)
[2017-01-31] MEDS: ACETAMINOPHEN IV 1,000 MG in EMPTY BAG 0 ML IV SCH ×2 (03:26→09:36)
[2017-01-31 06:29] LABS: BASO % 0.1 %; BASO ABS # 0.01 K/uL (0-0.2); COMPLETE YES; EOS % 0.7 %; HEMATOCRIT 28.3 % (37-47); IG% 0.4 %; LYMPH % 7.9 %; LYMPH ABS # 0.82 K/uL (1.2-3.4); MEAN CELL VOLUME 95.6 fL (80-100); MEAN CORPUSCULAR HEMOGLOBIN 31.1 pg (25-34); MEAN CORPUSCULAR HGB CONC 32.5 g/dl (32-36); MEAN PLATELET VOLUME 10.3 fL (7.4-10.4); MONO % 11.6 %; NEUT % 79.3 %; PLATELET COUNT 129 K/uL (130-400); RED BLOOD COUNT 2.96 M/uL (4.2-5.4); WHITE BLOOD COUNT 10.44 K/uL (4.8-10.8)
[2017-01-31 06:36] LABS: INR 1.1 (0.9-1.1); PROTHROMBIN TIME (PATIENT) 12.2 SECONDS (9.0-12.0)
--- NOTE | 2017-01-31 07:09 | PROGRESS NOTE ---
DATE: 01/31/2017 Postop day #2 status post left total knee replacement. At this point in time the patient denies any chest pain, shortness of breath, fevers, chills, nausea, vomiting or headache. She states she feels her usual self. She feels much better than yesterday. Vital signs are stable. She is afebrile. Neurovascular check femoral sciatic nerve is normal. Wound dressing clean, dry and intact. Calves nontender. Abdomen nontender. Hematocrit stable at 28.3. INR and chemistry pending. ASSESSMENT: Doing well. Plan for discharge today. Awaiting insurance approval. Discharge on 4 mg of Coumadin if INR is less than 1.4.
[2017-01-31 07:17] LABS: BUN/CREATININE RATIO 15.2 (10-20); CREATININE 0.89 mg/dl (0.60-1.20)
[2017-01-31 07:34] VITALS: BP 143/68; PULSE 89; TEMP 36.9; O2SAT 96
--- NOTE | 2017-01-31 07:46 | DISCHARGE SUMMARY ---
CHIEF COMPLAINT: Left knee pain. HISTORY OF PRESENT ILLNESS: A 76-year-old female admitted for left total knee replacement. She is cleared for surgery. PAST MEDICAL HISTORY: Remarkable for heart murmur, hypertension, history of TIA, diet-controlled diabetes, osteoarthritis, chronic back pain, peripheral neuropathy, elevated lipids, and obesity. FAMILY HISTORY: Noncontributory. SOCIAL HISTORY: Reveals that she is and retired. No tobacco or alcohol use. PAST SURGICAL HISTORY: Include right total knee replacement, left total hip replacement, multiple epidurals, hysterectomy and cataract surgery. ALLERGIES: PENICILLIN WHICH CAUSES HIVES, PREDNISONE WHICH CAUSES CONFUSION QUESTIONABLE SENSITIVITY TO ASPIRIN, but she tolerates Ecotrin daily. PREADMISSION MEDICATIONS: Include Aleve, calcium, multivitamin, Ecotrin, lisinopril, Lyrica,nifedipine, Pravastatin, Soma, vitamin B12, vitamin C, and Voltaren. At this point in time she will discontinue any anti-inflammatories. We will hold the lisinopril until blood pressure is more regulated. Be careful with the Soma, p.r.n. pain prescription to be given by PA. REVIEW OF SYSTEMS: Noncontributory. HOSPITAL COURSE: Has been relatively uneventful, had some feeling of fogginess with pain medications postoperative day #1, that is now all cleared. She is neurologically intact in all 4 extremities. Residual normal neurologic findings at baseline with the neuropathy present bilaterally in lower extremities from her back issues. She is ambulating in the hallway. Cranial nerves are intact. There is no asymmetry to upper or lower extremity strength or sensation. ASSESSMENT: Status post left total knee replacement. PLAN: To discharge today when insurance approves bed to [facility]. [facility]
[2017-01-31] MEDS ORDERED: TRAM-453 PO (08:27)
--- NOTE | 2017-01-31 08:29 | Discharge Instructions ---
Discharge Instructions Date of Service Jan 29, 2017. Admission Reason for Admission: Left Knee Degenerative Joint Disease Discharge Discharge Diagnosis / Problem: left knee s/p total knee replacement Discharge Goals Goal(s): Decrease discomfort, Improve function, Increase independence Activity Recommendations Activity Level: Up Ad Roxy Therapies: Physical Therapy, Weight Bearing Status (as tolerated) Weightbearing Status: Left weightbearing (as tolerated) Exercise/Sports Limitations: until after follow-up appointment Shower/Bathe: keep incision dry . Additional Information Patient informed of condition: Yes Advance Directives: Yes DNR: No Level of Care: Skilled Communicable Disease: No Prognosis: Stable Alvarez Catheter: No Instructions / Follow-Up Instructions / Follow-Up New Medicine: * You will likely be taking one or more of these medications: 1. Percocet - Take, as directed, when you need it, every four to six hours to control your pain. 2. Coumadin - Thins your blood to lessen the chance of forming a blood clot. The dose of this is different for each person and is based on your blood tests that are done twice a week. * The most common side effects of pain medicine and iron are nausea and constipation. If nausea or constipation is too much of a problem or if you have any questions about your new medicines or doses, call [facility] at . We will try to help you manage these issues. VERY IMPORTANT TO READ AND REVIEW" Blood Clots and Blood Thinning Medicine: * You are given Coumadin during the immediate post-operative period to lessen the risk of blood clots forming in your legs and/or lungs. Coumadin is usually given for six weeks after surgery. * The prescription is for 2 mg tablets. At discharge, you should understand your dose and take it all at the same time every day, preferably after dinner. * You need to get your blood checked 1 - 2 times per week for six weeks or as directed. * If your dose needs to change, we will call you. Do not take your medication on the day of the blood test until we call you. Pain: * The immediate post-operative period after knee replacement surgery is often quite painful. * You are given a prescription for pain medicine. You should take it, as directed, when you need it, especially before physical therapy and before going to bed. Pain that interferes with sleep is very common and can last several months. * You will likely need pain medicine for the first four to six weeks. It will not stop all of the pain. The pain will lessen and as you feel better, you may change to milder pain medicine such as Tylenol. * The most common side effects of pain medicine are nausea and constipation, so don't take more than you need. Physical Therapy: * You will have physical therapy two or three times each week for four to six weeks after your surgery in order to regain your knee range of motion and to retrain your knee to work properly. * It is just as important to make sure you are getting your knee perfectly straight as it is to regain your knee bend. * Taking a pain pill an hour before therapy can help you have a more productive and comfortable therapy session if needed. Home Exercise: * You were shown a series of exercises (heel props, heel slides, etc.) in the hospital. Do these exercises three to four times each day including the exercises you were shown in physical therapy. Walking: * Get up and walk several times each day. For the first four weeks, try not to stand or walk for more than one hour at a time. If you do stand or walk for more than one hour, you will not hurt anything, but your knee and leg will likely swell. * As you feel comfortable, you may change from the walker or crutches to a cane and then to independent walking. SELF CARE INSTRUCTIONS AFTER TOTAL KNEE REPLACEMENT A. You may need to continue a physical therapy program after discharge from the hospital. There are several options available to you. Your doctor will assist you in selecting the best one for you. 1. An out-patient facility 2 to 3 times a week for therapy or home therapy. 2. Continue working on all exercises taught to you in the hospital. Your goals should be to increase bending of your knee to 90 degrees and beyond and to fully straighten your knee. B. You may progress at your own pace from walking with a walker or crutches to a cane; then to no assistive devices. C. Make walking a part of your daily routine. Be up as much as comfortable with rest periods throughout the day. Rest with leg elevation is very important. Use the ice wrap frequently for the first 3-4 weeks. D. There are no restrictions on activities. You may ride in a car, shop, participate in smelter charger and all social activities. E. Wear the long elastic stockings (ELICEO hose) 20 hours a day for six weeks after surgery. They can be removed several times a day for laundering and for a shower. F. Do not place a pillow behind your knee when resting. A pillow at your ankle is okay. VERY IMPORTANT TO READ AND REVIEW A. Take Coumadin, Aspirin or Lovenox (blood thinning medications) as directed by your doctor. If on Coumadin, have a pro-time (blood test) drawn according to your doctor's instructions. This will tell the doctor how well the Coumadin is thinning your blood. 1. YOU WILL BE GIVEN AN ORDER AT DISCHARGE FOR PT/INR (BLOOD WORK). PLEASE HAVE THIS DONE INSTRUCTED. PLEASE CALL OUR OFFICE AFTER YOUR BLOODWORK IS COMPLETE SO WE CAN TRACK YOUR RESULTS. IF YOU ARE GOING TO OUTPATIENT PHYSICAL THERAPY, YOU WILL NEED TO GO TO OUTPATIENT TESTING TO HAVE IT DRAWN. B. There are a few signs you need to watch for after you are home. Call [facility] if you notice any of the followin. Increased severe knee pain. Some pain is expected especially when you exercise. 2. Increased swelling in your leg or knee; pain or swelling of the calf muscle in either lower leg. 3. Any fluid drainage from the incision. 4. Shortness of breath or chest pain. C. Please call [facility] at if you have any concerns or questions about your operation or recovery. The doctor or his nurse will return your call promptly. D. You must take antibiotics before dental work, bladder, bowel or other surgery. Call the office to obtain a prescription at least 2 days prior to your appointment. * CALL IF INCREASED PAIN, REDNESS, DRAINAGE OR FEVER GREATER THAT 101. * Sutures should be removed 12-14 days after surgery unless you are on chronic steriods, then it will be 14-18 days after surgery. Call your doctor if: * Temperature above 101 degrees F. * Pain not relieved by pain medicine ordered. * Increased drainage or redness from incision. * Notify your doctor with any questions or concerns. Current Hospital Diet Patient's current hospital diet: AHA Diet (Heart Healthy), Diabetes Type 2 Diet Discharge Diet Recommended Diet: AHA Diet (Heart Healthy), Diabetes Type 2 Diet Procedures Procedures Performed: Left Total Knee Arthroplasty Pending Studies Studies pending at discharge: no Physician Orders On Transfer Dressing Changes: as needed for soiling Vital Signs: per facility routine Medical Emergencies . Who to Call and When: Medical Emergencies: If at any time you feel your situation is an emergency, please call 911 immediately. . Non-Emergent Contact Non-Emergency issues call your: Primary Care Provider, Surgeon Call Non-Emergent contact if: temperature is above 101, wound has increased drainage, wound has increased redness, wound has increased pain, you have any medication questions . . "Provider Documentation" section prepared by Brain Castañeda PA-C. . Core Measure Problem Core Measures: None [place] Drug Monitoring Program Search Results: no issues identified
--- NOTE | 2017-01-31 08:33 | Orthopedic Progress Note ---
Orthopedic Progress Note Date of Service Jan 31, 2017. Subjective Post OP Day: 2 Reports: feeling well, Denies: SOB, calf pain, chest pain, complaints, light headedness, nausea / vomiting Objective calves soft nontender, N/V intact, capillary refill less than 2 sec., dressing C /D/I, incision C/D/I, A&O x3, toes mobile, CMS intact wound looks very good. No drainage since yesterday. Date Time Temp Pulse Resp B/P Pulse Ox O2 Delivery O2 Flow Rate FiO2 01/31/17 07:34 36.9 89 19 143/68 96 Room Air 01/31/17 07:25 Room Air 01/30/17 23:39 36.3 77 15 147/74 95 01/30/17 23:15 Room Air 01/30/17 15:47 37.6 92 17 127/82 98 Room Air 01/30/17 15:46 Room Air 01/30/17 13:14 95 18 96/56 95 Room Air 01/30/17 12:30 36.8 64 12 98/63 92 Room Air 01/30/17 08:59 82 99/61 Laboratory Results 24 Hours: Test 01/30/17 15:05 01/31/17 05:50 Hematocrit 29.2 % 28.3 % Hemoglobin 9.5 g/dL 9.2 g/dL White Blood Count 10.44 K/uL Red Blood Count 2.96 M/uL Mean Corpuscular Volume 95.6 fL Mean Corpuscular Hemoglobin 31.1 pg Mean Corpuscular Hemoglobin Concent 32.5 g/dl Platelet Count 129 K/uL Mean Platelet Volume 10.3 fL Neutrophils (%) (Auto) 79.3 % Lymphocytes (%) (Auto) 7.9 % Monocytes (%) (Auto) 11.6 % Eosinophils (%) (Auto) 0.7 % Basophils (%) (Auto) 0.1 % Neutrophils # (Auto) 8.29 K/uL Lymphocytes # (Auto) 0.82 K/uL Monocytes # (Auto) 1.21 K/uL Eosinophils # (Auto) 0.07 K/uL Basophils # (Auto) 0.01 K/uL Prothromb Time International Ratio 1.1 Prothrombin Time 12.2 SECONDS Assessment & Plan Assessment: Day 2 s/p Left total knee arthroplasty Plan: PT/OT today Ice with EZ wrap dressing changed by me. Wound looks excellent. WBAT on left lower extremity with immobilizer and walker for first 48 hrs post op PO Coumadin for DVT Prophylaxis (INR goal of 1.8-2.2) Teds and SCDs for DVT Prophylaxis. Awaiting confirmation for Rehab Facility ([facility]) Pain control with tylenol. discharge today when insurance approves. Discharge Planning Discharge Planning: [facility] facility Pain Management: Ultram DVT Prophylaxis: TEDs, SCDs, Coumadin Therapy: Physical Therapy, Occupational Therapy
[2017-01-31] MEDS: ASPIRIN 81 MG ECTAB PO SCH (09:07)
[2017-01-31] MEDS: FERROUS GLUCONATE 324 MG TAB PO SCH ×2 (09:07→12:39)
[2017-01-31] MEDS: PRAVASTATIN SOD 20 MG TAB PO SCH (09:08)
[2017-01-31] MEDS: MULTIVITAMIN TAB PO SCH (09:08)
[2017-01-31] MEDS: PANTOprazole SOD 40 MG TAB PO SCH (09:08)
[2017-01-31] MEDS: PREGABALIN 75 MG CAP PO SCH (09:16)
[2017-01-31] MEDS ORDERED: NIFEdipine 30 MG CR TAB PO ONE (09:40)
[2017-01-31] MEDS: DOCUSATE SODIUM 100 MG CAP PO SCH (10:10)
[2017-01-31 10:13] VITALS: BP 121/70; PULSE 89
[2017-01-31 10:39] VITALS: BP 121/70; PULSE 89; TEMP 36.9; O2SAT 96
[2017-02-01] MEDS ORDERED: NIFEdipine 30 MG CR TAB PO SCH (09:00)
--- NOTE | 2017-02-05 17:00 | EDITING REQUIRED CODING QUERY ---
ANEMIA Dear Dr. Hays, To promote full compliance with coding requirements relating to patient care, physician participation is requested in all cases of price changer uncertainty. Please assist us with the question(s) below: Coding Question(s): ANEMIA Please specify the known or suspected type by placing an "X" within the parenthesis (x). If other, please document type. Examples are: ( ) Acute blood loss anemia (x ) Acute Postoperative blood loss anemia (x ) Acute postoperative anemia due to dilutional fluids ( ) Chronic blood loss anemia ( ) Anemia of chronic disease ( ) Aplastic anemia ( ) Iron deficient anemia ( ) Anemia, unspecified or other ( ) Other: (please specify) ( ) Unable to determine Medical documentation. ANEMIA - monitor H&H Thank you for your time. Melody Riley, [employer]
[2017-08-13] MEDS ORDERED: PANT40TA PO (09:25)
[2017-08-13] MEDS ORDERED: LEVO50TA6 PO (09:25)
[2017-08-13] MEDS ORDERED: ASCO500T3 PO (09:25)
== END 2017-01-31 13:26 | DRG 470 ==
LOC: ENRESERVDT → ENRESERVTM → C.ACU 08:14 → C.3E 13:22 → EDBEDREQ 13:43
PROVIDERS: ADMIT Physical Medicine & Rehabilitation Sports Medicine; ATTEND Physical Medicine & Rehabilitation Sports Medicine
PROC: 0SRD0J9 Replacement of Left Knee Joint with Synthetic Substitute, Cemented, Open Approach (ICD-10-PCS; principal; 2017-01-29 10:40)
DX: M17.12 Unilateral primary osteoarthritis, left knee (principal); D62 Acute posthemorrhagic anemia; E66.9 Obesity, unspecified; G89.29 Other chronic pain; M54.5 Low back pain; R79.89 Other specified abnormal findings of blood chemistry; M54.2 Cervicalgia; K21.9 Gastro-esophageal reflux disease without esophagitis; F32.9 Major depressive disorder, single episode, unspecified; E78.5 Hyperlipidemia, unspecified; G62.9 Polyneuropathy, unspecified; E11.42 Type 2 diabetes mellitus with diabetic polyneuropathy; I10 Essential (primary) hypertension; R01.1 Cardiac murmur, unspecified; I95.9 Hypotension, unspecified; M21.162 Varus deformity, not elsewhere classified, left knee; T40.2X5A Adverse effect of other opioids, initial encounter; R42 Dizziness and giddiness; Y92.230 Patient room in hospital as the place of occurrence of the external cause; Z96.651 Presence of right artificial knee joint; Z96.642 Presence of left artificial hip joint; Z68.34 Body mass index [BMI] 34.0-34.9, adult; Z86.73 Personal history of transient ischemic attack (TIA), and cerebral infarction without residual deficits; Z79.82 Long term (current) use of aspirin; Z79.1 Long term (current) use of non-steroidal anti-inflammatories (NSAID); Z79.899 Other long term (current) drug therapy

== ENCOUNTER → 2017-03-13 | Outpatient (CLI) | payer OTHER ==
[~2017-03-13] MED LIST changes: +ASCO500T3 PO; -BUPIVACAINE 0.25% 30 ML VIAL ONE; -BUPIVACAINE 0.5 % 5 MG/1 ML PF 10ML VIAL ONE; -DICL1GEL12 TOP; -LACTATED RINGER'S 1000ML 1,000 ML IV SCH; -LACTATED RINGER'S 1000ML 500 ML IV ONE; +LEVO50TA6 PO; -NAPR1TAB9 PO; +PANT40TA PO; -ROPIVACAINE 5MG/ML 30 ML 150 MG, BUPIVACAINE/EPINEPHR 0.5% MPF 30 ML, KETOROLAC TROMETH... INFIL SCH; -TRANEXAMIC ACID INJ 1,000 MG in SODIUM CHLORIDE 0.9% 100ML 100 ML IV SCH; -VANCOMYCIN INJ 1,250 MG in SODIUM CHLORIDE 0.9% 250ML 250 ML IV SCH; +WARF2TAB PO
--- NOTE | 2017-03-13 13:03 | DIAGNOSTIC IMAGING REPORT ---
LEFT KNEE 3 VIEWS; RIGHT KNEE 2 VIEWS CLINICAL HISTORY: Left knee pain. FINDINGS: An AP standing view of both knees, a sunrise view of both knees, and a crosstable lateral view of the left knee are obtained. Correlation is made with left knee radiographs dated 01/29/2017. The skeletal structures are osteopenic. No fracture is seen in either knee. There are bilateral knee arthroplasties in near-anatomic alignment. No periprosthetic lucency is identified. There has been undersurface remodeling of the patellas. A joint effusion is noted on the left, best seen on the lateral view. There is soft tissue edema around the left knee. The soft tissues around the right knee are grossly normal. IMPRESSION: 1. No acute bony abnormality is seen in either knee. 2. Bilateral knee arthroplasties are in near-anatomic alignment. 3. Joint effusion and soft tissue swelling are noted on the left. Electronically signed by: Richard Mitchell M.D. 03/13/2017 1:01 PM Dictated Date/Time: 03/13/2017 12:59 PM
== END | disposition home or self-care (01) ==
LOC: C.RDSM 12:50
PROVIDERS: ATTEND Physician Assistant
DX: Z98.890 Other specified postprocedural states (principal); Z96.653 Presence of artificial knee joint, bilateral; M25.462 Effusion, left knee

== ENCOUNTER → 2017-08-20 | Day surgery (SDC) | payer OTHER ==
[2017-08-13 09:26] VITALS: Ht 152.4 cm; Wt 77.3 kg
[~2017-08-20] VITALS: Ht 152.4 cm; Wt 77.3 kg
[~2017-08-20] MED LIST changes: -ASCA500 PO; +IOPAMIDOL INJ 61% 15 ML VIAL ONE; +LIDOCAINE HCL 1% MPF 5 ML VIAL ONE; +SODIUM CHLORIDE 0.9% INJ 10 ML VIAL ONE; -WARF2TAB PO
[2017-08-20 16:30] VITALS: TEMP 36.9
--- NOTE | 2017-08-20 16:34 | Discharge Instructions ---
Discharge Instructions Date of Service Aug 20, 2017. Visit Reason for Visit: Lumbar Radiculopathy Discharge Discharge Diagnosis / Problem: right leg pain Discharge Goals Goal(s): Decrease discomfort, Improve function Medications Stopped Medications Name(s): asa 81mg daily, last dose 08/16/17 Activity Recommendations Activity Limitations: resume your previous activity Anesthesia . Post Anesthesia Instructions: If you have had General Anesthesia or IV Sedation: * Do not drive today. * Resume driving when surgeon permits. * Do not make important decisions or sign legal documents today. * Call surgeon for: 1. Temperature elevations greater than 101 degrees F. 2. Uncontrollable pain. 3. Excessive bleeding. 4. Persistent nausea and vomiting. 5. Medication intolerance (nausea, vomiting or rash). * For nausea and vomiting use only clear liquids such as: tea, soda, bouillon until nausea subsides, then gradually increase diet as tolerated. * If you have any concerns or questions, call your surgeon's office. If physician is unavailable and it is an emergency, call 911 or go to the nearest emergency room. . Diet Recommendations Recommended Home Diet: resume previous diet Procedures Procedures Performed: Lumbar Epidural Steroid Injection Pending Studies Studies pending at discharge: no Medical Emergencies . Who to Call and When: Medical Emergencies: If at any time you feel your situation is an emergency, please call 911 immediately. . Non-Emergent Contact Non-Emergency issues call your: Specialist . . "Provider Documentation" section prepared by Jeremy Arreaga. .
[2017-08-20 16:41] VITALS: BP 176/89; PULSE 86; O2SAT 98
--- NOTE | 2017-08-20 17:25 | OPERATIVE REPORT ---
DATE OF OPERATION: 08/20/2017 PREOPERATIVE DIAGNOSIS: Multifactorial stenosis, L5-S1 with a right L5 radiculopathy secondary to foraminal stenosis and disk herniation. POSTOPERATIVE DIAGNOSIS: Multifactorial stenosis, L5-S1 with a right L5 radiculopathy secondary to foraminal stenosis and disk herniation. PROCEDURE PERFORMED: Right paramedian L5-S1 intralaminar epidural steroid injection under fluoroscopic guidance. INDICATIONS: The patient is a 77-year-old -M[place] female, who has responded favorably to epidural injections in 2011 and 2012, done well up until recently where she began having increasing pain down the right leg. MRI revealed multifactorial stenosis at L5-S1. She presents today for an epidural injection to provide her with relief of right leg pain. CONSENT: Verbal and written consent was obtained from the patient. Risks and benefits were reviewed. The risks include, but are not limited to epidural hematoma, allergic reaction, and dural puncture. The patient wishes to proceed. DESCRIPTION OF PROCEDURE: The patient was taken back to the special procedures room of [facility]. She was maintained in a prone position. Backside was cleansed with Betadine x3 and a dry sterile dressing was applied. Fluoroscope was used to identify the L5-S1 intralaminar space, which was completely closed on the right side. The left side was opened and decision was made on the left side with an angle to try to get it towards the right side. A 22-gauge 4-1/4-inch Tuohy needle was directed down towards the intralaminar opening, and loss of resistance was noted at a depth of 9 cm. Isovue 300 contrast was injected in 1 mL, which demonstrated an epidural uptake pattern which was confirmed with both AP and lateral views. She then underwent injection after negative aspiration of 40 mg of Depo-Medrol and 4 mL of preservative-free sodium chloride. Injection was well tolerated. DISPOSITION: 1. The patient is taken out into the discharge recovery area, where she will be discharged to home once discharge criteria have been met. 2. Follow up in the [facility] office in 2-4 weeks. I attest to the content of the Intraoperative Record and any orders documented therein. Any exception s are noted below.
== END | disposition home or self-care (01) ==
LOC: X.SURG 14:06
PROVIDERS: ATTEND Physical Medicine & Rehabilitation
DX: M48.07 Spinal stenosis, lumbosacral region (principal)

== ENCOUNTER 2017-12-19 05:12 | Inpatient (IN) | payer OTHER ==
[2017-11-18 11:21] VITALS: BMI 34.0
--- NOTE | 2017-11-18 11:56 | PAT Medication Instructions ---
Service Date Nov 18, 2017. Current Home Medication List Acetaminophen (Tylenol), 1,000 MG PO BID Ascorbic Acid (Vitamin C), 1 TAB PO QAM Aspirin (Aspirin Ec), 81 MG PO QAM Carisoprodol (Soma), 350 MG PO QID PRN for Pain Latanoprost (Xalatan 0.005% Oph Gisell), 1 DROPS OP HS Levothyroxine Sodium (Levothyroxine Sodium), 1 TAB PO QAM Lisinopril (Zestril), 5 MG PO QAM Multivitamin (Multivitamin), 1 TAB PO QAM Nifedipine Ext Rel (Procardia Xl Ext Rel), 60 MG PO QAM Pantoprazole (Protonix), 40 MG PO QAM Pravastatin (Pravachol ), 20 MG PO QAM Pregabalin (Lyrica), 150 TAB PO BID [Oxybutynin], 5 MG PO QPM [Premarin Gel], 1 DOSE TOP PRN Medication Instructions For Your Scheduled Surgery - Hold the following medications 24 hours prior to surgery: [Premarin Gel], 1 DOSE TOP PRN - Hold the following medications the morning of surgery: Ascorbic Acid (Vitamin C), 1 TAB PO QAM Lisinopril (Zestril), 5 MG PO QAM Multivitamin (Multivitamin), 1 TAB PO QAM Carisoprodol (Soma), 350 MG PO QID PRN for Pain - Take the following medications the morning of surgery with a sip of water: Pregabalin (Lyrica), 150 TAB PO BID Pantoprazole (Protonix), 40 MG PO QAM Pravastatin (Pravachol ), 20 MG PO QAM Nifedipine Ext Rel (Procardia Xl Ext Rel), 60 MG PO QAM Levothyroxine Sodium (Levothyroxine Sodium), 1 TAB PO QAM Aspirin (Aspirin Ec), 81 MG PO QAM Acetaminophen (Tylenol), 1,000 MG PO BID (okay to take up to 4 hours prior to surgery if needed) - Take the following medications as scheduled the night before surgery: [Oxybutynin], 5 MG PO QPM Pregabalin (Lyrica), 150 TAB PO BID Latanoprost (Xalatan 0.005% Oph Gisell), 1 DROPS OP HS Acetaminophen (Tylenol), 1,000 MG PO BID Carisoprodol (Soma), 350 MG PO QID PRN for Pain (if needed) If you have any questions please call us at [phone] or [phone] or [phone]
[2017-11-18 12:30] LABS: BASO % 0.6 %; BASO ABS # 0.03 K/uL (0-0.2); EOS % 7.6 %; HEMATOCRIT 37.2 % (37-47); HEMOGLOBIN 12.4 g/dL (12.0-16.0); IG# 0.01 K/uL (0.00-0.02); LYMPH % 26.1 %; LYMPH ABS # 1.38 K/uL (1.2-3.4); MEAN CELL VOLUME 94.9 fL (80-100); MEAN CORPUSCULAR HEMOGLOBIN 31.6 pg (25-34); MEAN CORPUSCULAR HGB CONC 33.3 g/dl (32-36); MEAN PLATELET VOLUME 9.8 fL (7.4-10.4); MONO % 10.6 %; MONO ABS # 0.56 K/uL (0.11-0.59); NEUT % 54.9 %; PLATELET COUNT 197 K/uL (130-400); RED CELL DISTRIBUTION WIDTH CV 12.8 % (11.5-14.5); WHITE BLOOD COUNT 5.28 K/uL (4.8-10.8)
[2017-11-18 14:36] LABS: CREATININE 0.81 mg/dl (0.60-1.20); POTASSIUM 3.9 mmol/L (3.5-5.1)
[2017-12-19] VITALS (9 sets, daily range): BP systolic 117–164; BP diastolic 71–96; PULSE 61–96; TEMP 36.8–37.8; O2SAT 93–100; Ht 152.4 cm; Wt 79.5 kg
[~2017-12-19] VITALS: Ht 152.4 cm; Wt 79.5 kg
[~2017-12-19 05:12] MED LIST changes: +ACET-1256 PO; -CALC500C70 PO; -FLAX1CAP11 PO; -IOPAMIDOL INJ 61% 15 ML VIAL ONE; +LATA0.009 OP; -LIDOCAINE HCL 1% MPF 5 ML VIAL ONE; +OXYBUTYNIN PO; -SODIUM CHLORIDE 0.9% INJ 10 ML VIAL ONE
[2017-12-19] MEDS ORDERED: LACTATED RINGER'S 1000ML 1,000 ML IV SCH (06:00)
[2017-12-19] MEDS: CEFAZOLIN 1000MG IV PUSH 7.5 ML IV SCH ×2 (06:00→07:43)
[2017-12-19] MEDS ORDERED: FENTANYL CITRATE INJ 50 MCG/1 ML 2 ML VIAL ONE ×4 (06:43→10:40)
[2017-12-19] MEDS ORDERED: MIDAZOLAM HCL 1 MG/ML 2ML VIAL ONE (06:43)
[2017-12-19] MEDS ORDERED: ALBUMIN HUMAN 5% 12.5 GM/250 ML VIAL IV ONE (07:02)
[2017-12-19] MEDS ORDERED: BACITRACIN 50000 UNIT VIAL ONE (07:03)
[2017-12-19] MEDS ORDERED: BUPIVACAINE/EPINEPHRINE 0.5% MPF 1:200,000 30 ML VIAL ONE (07:03)
[2017-12-19] MEDS ORDERED: FENTANYL CITRATE INJ 50 MCG/1 ML 2 ML VIAL IV PRN (07:15)
[2017-12-19] MEDS ORDERED: ATROPINE SULFATE 0.1 MG/ML 5ML SYR IV PRN (07:15)
[2017-12-19] MEDS ORDERED: EpHEDrine SULFATE INJ 50 MG/ML AMP IV PRN (07:15)
[2017-12-19] MEDS ORDERED: ONDANSETRON INJ 2 MG/ML 2 ML VIAL IV PRN ×2 (07:15→10:45)
[2017-12-19] MEDS ORDERED: MoRPHine SULFATE 10 MG/ML CARP/VIAL IV PRN (07:15)
[2017-12-19] MEDS ORDERED: CLINDAMYCIN 600 MG/54 ML D5W IV ONE (07:36)
--- NOTE | 2017-12-19 07:37 | History and Physical ---
History & Physical Date Dec 19, 2017. Chief Complaint Back and leg pain History of Present Illness The patient is a 77 year old female with complaints of back and leg pain Past Medical/Surgical History Medical Problems: (1) Depression (2) Dyslipidemia (3) GERD (gastroesophageal reflux disease) (4) HTN (hypertension) (5) Left knee DJD Surgical Problems: (1) H/O cataract removal with insertion of prosthetic lens (2) History of total left hip arthroplasty (3) Hx of total knee arthroplasty Additional History Hepatic Disease: No Endocrine Disorder: No Kidney Disease: No Hypertension: Yes Heart Disease: No Bleeding Tendencies: No Infectious Diseases: No Allergies Coded Allergies: Aspirin (Verified Allergy, Intermediate, RASH, 12/16/17) REACTION IS FUNGAL RASH Ciprofloxacin (Verified Allergy, Intermediate, ITCHING ALL OVER BODY, 12/16) Penicillin G (Verified Allergy, Intermediate, HIVES, 11/18/17) Clarithromycin (Verified Allergy, Unknown, FELT OUT OF SPACE, 11/18/17) Oxycodone (Verified Allergy, Unknown, R HAND WENT WEAK, NO MOTOR SKILL, ) Cyclobenzaprine (Verified Adverse Reaction, Mild, sedation per PCP note , 12/16/17) Prednisone (Verified Adverse Reaction, Mild, LOOPY DISORIENTED, 12/16/17) Statins (Verified Adverse Reaction, Mild, MUSCLE ACHES, 12/19/17) Home Medications Scheduled Acetaminophen (Tylenol), 1,000 MG PO BID Ascorbic Acid (Vitamin C), 1 TAB PO QAM Aspirin (Aspirin Ec), 81 MG PO QAM Latanoprost (Xalatan 0.005% Oph Gisell), 1 DROPS OP HS Levothyroxine Sodium (Levothyroxine Sodium), 1 TAB PO QAM Lisinopril (Zestril), 5 MG PO QAM Multivitamin (Multivitamin), 1 TAB PO QAM Nifedipine Ext Rel (Procardia Xl Ext Rel), 60 MG PO QAM Pantoprazole (Protonix), 40 MG PO QAM Pregabalin (Lyrica), 150 TAB PO BID [Oxybutynin], 5 MG PO QPM [Premarin Gel], 1 DOSE TOP PRN Physical Examination Skin: warm/dry, no rash Eyes: normal inspection, EOMI, sclerae normal ENT: normal ENT inspection, pharynx normal Head: normocephalic, atraumatic Neck: supple, no adenopathy, trachea midline Respiratory/Chest: lungs clear, normal breath sounds, no respiratory distress Cardiovascular: regular rate, rhythm, no edema, no murmur Abdomen / GI: normal bowel sounds, non tender Back: normal inspection Extremities: normal inspection, normal range of motion Neurologic/Psych: no motor/sensory deficits, alert, normal reflexes, oriented x 3 Diagnosis Lumbar spinal stenosis Plan of Treatment L3-S1 decompression and fusion
[2017-12-19] MEDS ORDERED: CLINDAMYCIN 600 MG/54 ML D5W IV STA (07:52)
[2017-12-19] MEDS ORDERED: HYDROmorphone INJ 2 MG/ML SYR/VIAL ONE ×2 (08:05→09:54)
[2017-12-19] MEDS ORDERED: DEXAMETHASONE SOD INJ 4 MG/ML VIAL ONE (09:54)
[2017-12-19] MEDS ORDERED: ROCURONIUM BROMIDE 10 MG/ML 5 ML VIAL IV ONE (09:54)
[2017-12-19] MEDS ORDERED: PHENYLEPHRINE 100MCG/ML 5ML SYR ONE (09:54)
[2017-12-19] MEDS ORDERED: PROPOFOL IV EMULSION 10 MG/ML 20 ML VIAL IV ONE (09:54)
[2017-12-19] MEDS ORDERED: LIDOCAINE HCL 2% 2 ML VIAL (20MG/ML) ONE (09:54)
[2017-12-19] MEDS ORDERED: ONDANSETRON INJ 2 MG/ML 2 ML VIAL ONE ×2 (09:54→11:09)
[2017-12-19] MEDS ORDERED: VOLUVEN IN NSS ONE (09:55)
[2017-12-19] MEDS ORDERED: FLOSEAL HEMOSTATIC MATRIX 10ML TOP ONE (10:29)
--- NOTE | 2017-12-19 10:42 | [facility] Operative Report ---
Operative Report Operative Date Dec 19, 2017. Pre-Operative Diagnosis Lumbar spinal stenosis Post-Operative Diagnosis same as preop Procedure(s) Performed 1. Lumbar decompression medial facetectomy and foraminotomies L3-4 L4-5 L5-S1. #2 posterior spinal fusion L3-4 L4-5 L5-S1. #3 placement posterior segmental instrument Tatian L3-S1. #4 interbody fusion L5-S1. #5 placed a peek cage 11 x 22 mm L5-S1. #6 placement of locally harvested Carter's allograft in the posterior lateral gutters. #7 placement InFUSE collagen sponge master graft in the posterior gutters and ostium of the interbody space. Surgeon Dr. Mireles [employer] Superintendent Surgeon(s) Hari Recio PA-C Estimated Blood Loss 600 ml Findings Severe spinal stenosis Specimens none Anesthesia Type General Description of Procedure Patient was met with preoperatively case discussed all questions addressed. After informed consent obtained patient was taken to the operative suite underwent intubation and placed in a prone position on the Shoaib table on top of the Danny frame. All bony prominences well-padded I suspected to ensure no external pressure placed upon. This point the lumbar spine was prepped and draped in normal sterile fashion. Sharp dissection with the assistance of Bovie cautery was performed on March exposing the lamina and transverse processes of L3-L4-L5 in the cervical bilaterally. 4 caudocephalad fashion complete laminectomy of L5 L4 and L3 was performed addressing severe lateral recess and foraminal stenosis. If there is complete pedicle screws placed at L3 -L4-L5 S1 levels bilin the appropriate size teresa placed. Through a transforaminal approach on the right complete discectomy of L5-S1 was performed endplates curetted to subcortical bleeding bone and a 11 x 22 mm peek cage for the ostomy Apligraf tapped in position. The teresa was then locked in final position. Crosslink locked in position. Transverse process of L3-L4-L5 and the sacral ala burred to subcortical bleeding bone. InFUSE collagen sponge breast graft and locally harvested most of Was placed in the posterior gutters. 15 round JEFFREY drain inserted. Incision was then closed with 1 Vicryl fascia 2-0 Vicryl substantially and 4-0 Monocryl for fashion closure Steri-Strips sterile dressings placed. Patient will continue to PACU stable discrete please note Anastacio Recio was present throughout the entire procedure involved the patient positioning complex portions of the surgery and crossing closure. I attest to the content of the Intraoperative Record and any orders documented therein. Any exceptions are noted below.
[2017-12-19] MEDS ORDERED: SODIUM CHLORIDE 0.9% 1000ML 1,000 ML IV SCH (10:43)
[2017-12-19] MEDS ORDERED: BISACODYL 10 MG SUPP PR PRN (10:45)
[2017-12-19] MEDS ORDERED: PROMETHAZINE HCL INJ 12.5 MG in SODIUM CHLORIDE 0.9% 50ML 50 ML IV PRN (10:45)
[2017-12-19] MEDS ORDERED: MAGNESIUM HYDROXIDE SUSP 30 ML UDC PO PRN (10:45)
[2017-12-19] MEDS ORDERED: DO NOT ADMINISTER FLU VACCINE PRN (10:45)
[2017-12-19] MEDS ORDERED: LORAZEPAM 0.5 MG TAB PO PRN (10:45)
[2017-12-19] MEDS ORDERED: METOCLOPRAMIDE HCL INJ 5 MG/ML 2 ML VIAL IV PRN (10:45)
[2017-12-19] MEDS ORDERED: FAMOTIDINE 20 MG TAB PO PRN (10:45)
[2017-12-19] MEDS ORDERED: SOD PHOSPHATE/SOD BIPHOSPHATE ENEMA 132 ML BTL PR PRN (10:45)
[2017-12-19] MEDS ORDERED: LORAZEPAM INJ 0.5 MG in SYRINGE 0 ML IV PRN (10:45)
[2017-12-19] MEDS ORDERED: hydrOXYzine HCL 25 MG TAB PO PRN (10:45)
[2017-12-19] MEDS ORDERED: NALOXONE HCL 0.4 MG/1 ML VIAL/CARP IV PRN ×2 (10:45)
[2017-12-19] MEDS ORDERED: ALUMINUM/MAGNESIUM SUSP 30 ML UDC PO PRN (10:45)
[2017-12-19] MEDS ORDERED: ACETAMINOPHEN IV 100 ML IV PRN (10:45)
[2017-12-19] MEDS ORDERED: DO NOT ADMINISTER PNEUMOCOCCAL VACCINE PRN (10:45)
--- NOTE | 2017-12-19 10:54 | DIAGNOSTIC IMAGING REPORT ---
LUMBAR SPINE 2 OR 3 VIEW CLINICAL HISTORY: L3-S1 DECOMPRESSION/FUSION/INTERBODY COMPARISON STUDY: Lumbar spine MRI August 08, 2017. Fluoroscopy time: 24 seconds. FINDINGS: 2 fluoroscopic images demonstrate an L5-S1 discectomy. There is a posterior decompression with bilateral pedicle screws at the L3, L4, L5 and S1 levels. IMPRESSION: Fluoroscopic images demonstrating an L5-S1 discectomy and L3-S1 bilateral pedicle screw fusion. Electronically signed by: Marko Eastman M.D. 12/19/2017 10:52 AM Dictated Date/Time: 12/19/2017 10:51 AM
[2017-12-19] MEDS ORDERED: KETOROLAC TROMETHAMINE 30 MG/ML VIAL ONE (11:09)
[2017-12-19] MEDS ORDERED: GLYCOPYRROLATE INJ 0.2 MG/ML VIAL ONE (11:09)
[2017-12-19] MEDS ORDERED: NEOSTIGMINE METHYLSULFATE 1 MG/ML 10ML VIAL ONE (11:09)
[2017-12-19] MEDS ORDERED: HYDROmorphone HCL 0.5MG/ML 50 ML CASSETTE ONE (11:19)
--- NOTE | 2017-12-19 11:40 | Anesthesiology Progress Note ---
Anesthesia Post Op Note Date & Time Dec 19, 2017 at 11:40 Vital Signs Pain Intensity: 0 Vital Signs Past 12 Hours Date Time Temp Pulse Resp B/P (MAP) Pulse Ox O2 Delivery O2 Flow Rate FiO2 12/19/17 11:25 76 23 119/86 100 Oxymask 10 12/19/17 11:15 79 15 127/67 100 Oxymask 10 12/19/17 11:05 36.4 85 16 131/78 96 Oxymask 10 12/19/17 06:15 97 Room Air 12/19/17 06:07 36.8 79 20 130/79 Notes Mental Status: alert / awake / arousable, participated in evaluation Pt Amnestic to Procedure: Yes Nausea / Vomiting: adequately controlled Pain: adequately controlled Airway Patency, RR, SpO2: stable & adequate BP & HR: stable & adequate Hydration State: stable & adequate Anesthetic Complications: no major complications apparent
[2017-12-19] MEDS ORDERED: NURSING VERBAL MED ORDER ONE ×2 (11:45→20:30)
[2017-12-19] MEDS: HYDROmorphone HCL 0.5MG/ML 50 ML CASSETTE IV PRN ×2 (13:06→14:51)
[2017-12-19] MEDS: SODIUM CHLORIDE 0.9% 1000ML 1,000 ML IV SCH ×2 (16:06→22:40)
[2017-12-19] MEDS: CLINDAMYCIN IV 600 MG in DEXTROSE 5% 50ML 50 ML IV SCH (16:31)
[2017-12-19] MEDS: DOCUSATE SODIUM/SENNA 50/8.6MG TAB PO SCH (21:05)
[2017-12-19] MEDS: OXYBUTYNIN CHLORIDE 5 MG TAB PO SCH (21:05)
[2017-12-19] MEDS: PREGABALIN 75 MG CAP PO SCH (21:05)
[2017-12-19] MEDS: LATANOPROST 0.005% OP SOLN 2.5 ML BTL OP SCH (21:07)
[2017-12-20] VITALS (13 sets, daily range): BP systolic 90–135; BP diastolic 55–74; PULSE 72–92; TEMP 36.6–37.6; O2SAT 87–99
[2017-12-20] MEDS: CLINDAMYCIN IV 600 MG in DEXTROSE 5% 50ML 50 ML IV SCH (00:22)
[2017-12-20] MEDS: ACETAMINOPHEN 500 MG TAB PO PRN ×2 (00:26→18:03)
[2017-12-20] MEDS: SODIUM CHLORIDE 0.9% 1000ML 1,000 ML IV SCH (05:20)
[2017-12-20] MEDS ORDERED: DC PCA SCH (06:00)
[2017-12-20] MEDS ORDERED: HYDROmorphone INJ 1 MG/ML SYR IV PRN (06:00)
[2017-12-20] MEDS ORDERED: HYDROmorphone INJ 0.5 MG/0.5 ML SYR IV PRN (06:00)
[2017-12-20 06:20] LABS: BASO % 0.1 %; BASO ABS # 0.01 K/uL (0-0.2); EOS % 0.4 %; EOS ABS # 0.03 K/uL (0-0.5); HEMATOCRIT 23.7 % (37-47); HEMOGLOBIN 8.1 g/dL (12.0-16.0); IG# 0.06 K/uL (0.00-0.02); LYMPH % 11.6 %; LYMPH ABS # 0.92 K/uL (1.2-3.4); MEAN CORPUSCULAR HEMOGLOBIN 32.1 pg (25-34); MEAN CORPUSCULAR HGB CONC 34.2 g/dl (32-36); MEAN PLATELET VOLUME 10.2 fL (7.4-10.4); MONO % 8.4 %; MONO ABS # 0.67 K/uL (0.11-0.59); NEUT % 78.7 %; NEUT ABS # 6.24 K/uL (1.4-6.5); PLATELET COUNT 159 K/uL (130-400); RED CELL DISTRIBUTION WIDTH CV 13.3 % (11.5-14.5); RED CELL DISTRIBUTION WIDTH SD 45.7 fL (36.4-46.3); WHITE BLOOD COUNT 7.93 K/uL (4.8-10.8)
[2017-12-20] MEDS: LEVOTHYROXINE 50 MCG TAB PO SCH (06:27)
[2017-12-20] MEDS ORDERED: NURSING VERBAL MED ORDER ONE (06:30)
[2017-12-20 06:43] LABS: CALCIUM 7.4 mg/dl (8.5-10.1); CREATININE 0.86 mg/dl (0.60-1.20); POTASSIUM 3.9 mmol/L (3.5-5.1)
[2017-12-20] MEDS: PANTOprazole SOD 40 MG TAB PO SCH (08:05)
[2017-12-20] MEDS: PREGABALIN 75 MG CAP PO SCH ×2 (08:05→22:10)
[2017-12-20] MEDS: LISINOPRIL 5 MG TAB PO SCH (08:06)
[2017-12-20] MEDS: NIFEdipine 30 MG CR TAB PO SCH (08:07)
[2017-12-20] MEDS: ASPIRIN 81 MG ECTAB PO SCH (08:07)
--- NOTE | 2017-12-20 09:15 | Progress Note ---
Progress Note Date of Service Dec 20, 2017. Progress Note Patient's back pain is controlled. Her leg symptoms are markedly improved. On exam she is in the bed she appears comfortable. She has reasonable strength testing. Assessment status post multilevel lumbar decompression fusion. Plan at this time will initiate physical therapy will consult medicine for medical evaluation. Hopefully we will be able to transfer her to [facility] early next week.
--- NOTE | 2017-12-20 10:03 | Medical Consult ---
Consultation Date of Consultation: Dec 20, 2017. Attending Physician: Jeremy Mireles D.O. Reason for Consultation: Medical Management History of Present Illness 77 y/o female with PMH of control DM type 2, chronic back pain, CKD stage 3, anemia, HTN, osteoarthritis, s/p lumbar decompression fusion day 1 after failing medical management. [facility] hospitalist was consulted for Medical management. upon entering her home, jesús toth was called because pt had a near syncope in the bathroom. Pt went to the bathroom with assistance to get clean up, she said that while standing in the bathroom, she felt dizzy and and the aid tried to get her sit on a chair. The aid held her and got her sitting on the floor. During the event, pt said that she was feeling dizzy. she denies passing out or hitting her head or any other body parts. We carried her into her bed. She denies any chest pain, palpitation, nausea and SOB. Vital signs with BP 135/74, Temp 37.0, O2sat 97%, HR 74 and BS 195. Pt currently lies in bed comfortable. Past Medical/Surgical History DM type 2 Chronic back pain CKD stage 3 Anemia HTN Osteoarthritis s/p lumbar decompression fusion Social History Smoking Status: Never Smoker Drug Use: none Allergies Coded Allergies: Aspirin (Verified Allergy, Intermediate, RASH, 12/16/17) REACTION IS FUNGAL RASH Ciprofloxacin (Verified Allergy, Intermediate, ITCHING ALL OVER BODY, 12/16) Penicillin G (Verified Allergy, Intermediate, HIVES, 11/18/17) Clarithromycin (Verified Allergy, Unknown, FELT OUT OF SPACE, 11/18/17) Oxycodone (Verified Allergy, Unknown, R HAND WENT WEAK, NO MOTOR SKILL, ) Cyclobenzaprine (Verified Adverse Reaction, Mild, sedation per PCP note , 12/16/17) Prednisone (Verified Adverse Reaction, Mild, LOOPY DISORIENTED, 12/16/17) Statins (Verified Adverse Reaction, Mild, MUSCLE ACHES, 12/19/17) Current Inpatient Medications Current Inpatient Medications Medications (Trade) Dose Ordered Sig/Jesús Route Start Time Stop Time Status Last Admin Dose Admin Promethazine HCl 12.5 mg/Sodium Chloride 50.5 ml @ 202 mls/hr Q6H PRN IV 12/19/17 10:45 01/18/18 10:44 Ondansetron HCl (Zofran Inj) 4 mg Q6H PRN IV 12/19/17 10:45 01/18/18 10:44 Metoclopramide HCl (Reglan Inj) 10 mg Q6H PRN IV 12/19/17 10:45 01/18/18 10:44 Lorazepam (Ativan Tab) 0.5 mg Q8H PRN PO 12/19/17 10:45 01/18/18 10:44 Lorazepam 0.5 mg/ Syringe 0.25 ml @ 1 mls/min Q8H PRN IV 12/19/17 10:45 01/18/18 10:44 Pneumococcal Polysaccharide Vaccine 1 ea PRN PRN N/A 12/19/17 10:45 01/18/18 10:44 Influenza Virus Vacc Triv Types A&B 1 ea PRN PRN N/A 12/19/17 10:45 01/18/18 10:44 Polyethylene (Miralax Powder Packet) 17 gm Q6 PO 12/21/17 06:00 01/20/18 05:59 Bisacodyl (Dulcolax Supp) 10 mg DAILY PRN MT 12/19/17 10:45 01/18/18 10:44 Magnesium Hydroxide (Milk Of Magnesia Susp) 30 ml DAILY PRN PO 12/19/17 10:45 01/18/18 10:44 Hydromorphone HCl (Dilaudid Inj) 0.5 mg Q3H PRN IV 12/20/17 06:00 01/03/18 05:59 Acetaminophen/ Hydrocodone Bitart (Coats 5/325 Tab) 1-2 tabs prn moder... Q4H PRN PO 12/20/17 06:00 01/03/18 05:59 Acetaminophen (Tylenol Tab) 1,000 mg Q8H PRN PO 12/19/17 10:45 01/18/18 10:44 12/20/17 00:26 1,000 MG Acetaminophen 100 ml @ 400 mls/hr Q8H PRN IV 12/19/17 10:45 01/18/18 10:44 Naloxone HCl (Narcan Inj) 0.1 mg Q5M PRN IV 12/19/17 10:45 01/18/18 10:44 Senna/Docusate Sodium (Senokot S Tab) 2 tab HS PO 12/19/17 21:00 01/18/18 20:59 12/19/17 21:05 2 TAB Sodium Biphosphate/ Sodium Phosphate (Fleet Enema) 132 ml ONE PRN MT 12/19/17 10:45 01/18/18 10:44 Hydroxyzine HCl (Vistaril Tab) 25 mg Q8H PRN PO 12/19/17 10:45 01/18/18 10:44 Al Hydroxide/Mg Hydroxide (Maalox Susp) 30 ml Q6H PRN PO 12/19/17 10:45 01/18/18 10:44 Famotidine (Pepcid Tab) 20 mg Q12H PRN PO 12/19/17 10:45 01/18/18 10:44 Diphenhydramine HCl (Benadryl Cap) 25 mg Q6H PRN PO 12/19/17 10:45 01/18/18 10:44 Aspirin (Ecotrin Tab) 81 mg QAM PO 12/20/17 09:00 01/19/18 08:59 12/20/17 08:07 81 MG Latanoprost (Xalatan Oph Soln) 1 drops HS OP 12/19/17 21:00 01/18/18 20:59 12/19/17 21:07 1 DROPS Levothyroxine Sodium (Synthroid Tab) 50 mcg DAILYBB PO 12/20/17 06:00 01/19/18 05:59 12/20/17 06:27 50 MCG Lisinopril (Zestril Tab) 5 mg QAM PO 12/20/17 09:00 01/19/18 08:59 Future Hold Nifedipine (Procardia Xl Tab) 60 mg QAM PO 12/20/17 09:00 01/19/18 08:59 12/20/17 08:07 60 MG Pantoprazole Sodium (Protonix Tab) 40 mg QAM PO 12/20/17 09:00 01/19/18 08:59 12/20/17 08:05 40 MG Pregabalin (Lyrica Cap) 150 mg BID PO 12/19/17 21:00 01/18/18 20:59 12/20/17 08:05 150 MG Oxybutynin Chloride (Ditropan Tab) 5 mg QPM PO 12/19/17 21:00 01/18/18 20:59 12/19/17 21:05 5 MG Hydromorphone HCl (Dilaudid Inj) 1 mg Q3H PRN IV 12/20/17 06:00 01/03/18 05:59 Review of Systems Constitutional: No fever, No chills Eyes: No eye pain, No redness ENT: No nasal symptoms, No sore throat, No trouble swallowing Respiratory: No cough, No sputum, No shortness of breath Cardiovascular: No chest pain, No palpitations Abdomen: No pain, No nausea, No vomiting, No diarrhea Musculoskeletal: + joint pain, No calf pain Genitourinary - Female: No dysuria, No urinary frequency Neurologic: + vertigo, No paralysis Psychiatric: No substance abuse Endocrine: No excessive thirst Hematologic / Lymphatic: No clotting problems Integumentary: No rash, No itch Physical Exam Date Time Temp Pulse Resp B/P (MAP) Pulse Ox O2 Delivery O2 Flow Rate FiO2 12/20/17 08:00 Room Air 12/20/17 07:25 37.6 83 16 97/58 (71) 97 Nasal Cannula 2.0 12/20/17 03:33 94 Nasal Cannula 2.0 12/20/17 03:30 36.9 92 18 96/55 (69) 87 Room Air 12/19/17 23:50 37.8 96 16 117/71 (86) 93 Room Air 12/19/17 22:30 Room Air 12/19/17 19:36 37.7 86 16 131/82 (98) 98 Room Air 12/19/17 15:10 Nasal Cannula 2.0 12/19/17 15:10 36.9 67 16 152/87 (108) 100 Nasal Cannula 2.0 12/19/17 14:27 61 16 155/90 (111) 100 12/19/17 13:10 73 16 164/96 (118) 100 12/19/17 12:37 36.9 75 16 149/92 (111) 100 Nasal Cannula 4.0 12/19/17 12:10 36.8 72 14 150/88 (108) 100 Nasal Cannula 4.0 12/19/17 12:10 100 Nasal Cannula 4.0 12/19/17 12:10 Nasal Cannula 4.0 12/19/17 11:45 36.2 77 21 133/85 100 Nasal Cannula 3 12/19/17 11:35 74 16 137/81 100 Nasal Cannula 4 12/19/17 11:25 76 23 119/86 100 Oxymask 10 12/19/17 11:15 79 15 127/67 100 Oxymask 10 12/19/17 11:05 36.4 85 16 131/78 96 Oxymask 10 General Appearance: WD/WN Head: atraumatic Eyes: PERRL, EOMI ENT: hearing grossly normal Neck: supple, no JVD Respiratory/Chest: normal breath sounds, no respiratory distress, no accessory muscle use Cardiovascular: no JVD, no murmur Abdomen/GI: normal bowel sounds, non tender Back: + pertinent finding (s/p lumbar decompression with JEFFREY drainage) Extremities/Musculoskelatal: no calf tenderness Neurologic/Psych: no motor/sensory deficits, alert, oriented x 3 Skin: warm/dry, no rash Laboratory Results Last 24 Hours Test 12/19/17 11:57 12/20/17 05:42 Bedside Glucose 133 mg/dl White Blood Count 7.93 K/uL Red Blood Count 2.52 M/uL Hemoglobin 8.1 g/dL Hematocrit 23.7 % Mean Corpuscular Volume 94.0 fL Mean Corpuscular Hemoglobin 32.1 pg Mean Corpuscular Hemoglobin Concent 34.2 g/dl Platelet Count 159 K/uL Mean Platelet Volume 10.2 fL Neutrophils (%) (Auto) 78.7 % Lymphocytes (%) (Auto) 11.6 % Monocytes (%) (Auto) 8.4 % Eosinophils (%) (Auto) 0.4 % Basophils (%) (Auto) 0.1 % Neutrophils # (Auto) 6.24 K/uL Lymphocytes # (Auto) 0.92 K/uL Monocytes # (Auto) 0.67 K/uL Eosinophils # (Auto) 0.03 K/uL Basophils # (Auto) 0.01 K/uL RDW Standard Deviation 45.7 fL RDW Coefficient of Variation 13.3 % Immature Granulocyte % (Auto) 0.8 % Immature Granulocyte # (Auto) 0.06 K/uL Toxic Vacuolation OCCASIONAL Red Blood Cell Morphology Unremarkable Sodium Level 138 mmol/L Potassium Level 3.9 mmol/L Chloride Level 107 mmol/L Carbon Dioxide Level 26 mmol/L Anion Gap 5.0 mmol/L Blood Urea Nitrogen 12 mg/dl Creatinine 0.86 mg/dl Est Creatinine Clear Calc Drug Dose 50.3 ml/min Estimated GFR () 75.0 Estimated GFR (Non- 64.7 BUN/Creatinine Ratio 13.5 Random Glucose 132 mg/dl Calcium Level 7.4 mg/dl Assessment & Plan Low Back Pain S/P day 1 Lumbar decompression and fusion performed by dr. Mireles Hgb 8.1 today Hgb baseline btw 11 to 12 pain management as per ORTHO Incentive spirometry PT/OT Near Syncope Dizziness Possible vasovagal vs orthostatic vs narcotic No focal neuro deficit on exam Will give 1L NS Hold lisinopril Fall precaution Continue monitor Anemia acute blood loss Due to recent surgery Hbg 8.1 Will transfuse 1 unit PRBC Monitor H/H Hypocalcemia Mostly related to recent surgery Calcium was normal on 11/18/17 Calcium 7.4 today Albumin was 4.4 (in 10/23) Will give 1g calcium gluconate Stat EKG showed no changes compare to previous one in January 2017 Continue monitor BMP DM type 2 Recent hgb a1c 5.6 on 10/10/17 BS elevated at 195 Will start on insulin sliding scale/ possible low dose lantus during hospital course Continue monitor BP DVT px as per ORTHO CODE status FULL CODE
[2017-12-20] MEDS ORDERED: SODIUM CHLORIDE 0.9% 1000ML 1,000 ML IV SCH (10:30)
[2017-12-20] MEDS ORDERED: CALCIUM GLUCONATE 10% 1,000 MG in SODIUM CHLORIDE 0.9% 50ML 50 ML IV STA (10:31)
[2017-12-20 20:41] LABS: HEMATOCRIT 28.4 % (37-47); HEMOGLOBIN 9.4 g/dL (12.0-16.0)
[2017-12-20] MEDS: DOCUSATE SODIUM/SENNA 50/8.6MG TAB PO SCH (22:07)
[2017-12-20] MEDS: OXYBUTYNIN CHLORIDE 5 MG TAB PO SCH (22:08)
[2017-12-20] MEDS: LATANOPROST 0.005% OP SOLN 2.5 ML BTL OP SCH (22:09)
[2017-12-21] MEDS: LEVOTHYROXINE 50 MCG TAB PO SCH (05:39)
[2017-12-21] MEDS: POLYETHYLENE (MIRALAX) 17 GM PACK PO SCH ×3 (05:40→18:29)
[2017-12-21 05:43] LABS: HEMATOCRIT 29.5 % (37-47); HEMOGLOBIN 9.6 g/dL (12.0-16.0); MEAN CELL VOLUME 92.8 fL (80-100); MEAN CORPUSCULAR HEMOGLOBIN 30.2 pg (25-34); MEAN CORPUSCULAR HGB CONC 32.5 g/dl (32-36); MEAN PLATELET VOLUME 9.8 fL (7.4-10.4); PLATELET COUNT 153 K/uL (130-400); RED CELL DISTRIBUTION WIDTH SD 47.5 fL (36.4-46.3); WHITE BLOOD COUNT 11.74 K/uL (4.8-10.8)
[2017-12-21 06:04] LABS: ALBUMIN 2.3 gm/dl (3.4-5.0); CALCIUM 8.1 mg/dl (8.5-10.1); CREATININE 0.74 mg/dl (0.60-1.20); POTASSIUM 3.5 mmol/L (3.5-5.1)
[2017-12-21 06:14] LABS: TOTAL PROTEIN 5.9 gm/dl (6.4-8.2)
[2017-12-21 07:25] VITALS: BP 148/78; PULSE 84; TEMP 37.3; O2SAT 95
[2017-12-21] MEDS: PREGABALIN 75 MG CAP PO SCH ×2 (07:29→20:36)
[2017-12-21] MEDS: ACETAMINOPHEN 500 MG TAB PO PRN ×2 (07:30→15:31)
[2017-12-21] MEDS: ASPIRIN 81 MG ECTAB PO SCH (07:30)
[2017-12-21] MEDS: NIFEdipine 30 MG CR TAB PO SCH (07:31)
[2017-12-21] MEDS: PANTOprazole SOD 40 MG TAB PO SCH (07:31)
[2017-12-21] MEDS ORDERED: HYDR-5688 PO (12:39)
--- NOTE | 2017-12-21 12:40 | Discharge Instructions ---
Discharge Instructions Date of Service Dec 21, 2017. Admission Reason for Admission: Lumbar Spinal Stenosis Discharge Discharge Diagnosis / Problem: lumbar stenosis Discharge Goals Goal(s): Improve function Activity Recommendations Activity Limitations: per Instructions/Follow-up section . Instructions / Follow-Up Instructions / Follow-Up ACTIVITY RECOMMENDATIONS: SELF CARE INSTRUCTIONS AFTER THORACIC/LUMBAR FUSIONS 1. You may walk to your tolerance. It is good exercise for your legs and back. Expect some back and intermittent leg aches and pains. 2. You may perform "counter-top" level activities (make a sandwich, valeriano with a project, etc.). 3. No bending or lifting of more than 10 pounds or back twisting of any nature (roll like a log when turning in bed). 4. You may ride in a car for 20-30 minutes at a time. No driving until after your first visit with your doctor. 5. Frequent changes of position and restricting sitting to 30 minutes at a time will help limit the amount of back spasms and stiffness you may experience. 6. You may discontinue the use of ambulatory aids (cane, crutches, etc.) once your strength and confidence allow. 7. You may diesel engine operator the shower and let water strike your incision when you arrive home at least once daily. Do not take a tub bath, sit in a hot tub or go into a swimming pool until after your first recheck in the office. SPECIAL CARE INSTRUCTIONS: VERY IMPORTANT TO READ AND REVIEW A. Your surgical incision has been closed with a cosmetic suture under the skin that will dissolve in about 6 weeks. In 14 days, you can use a pair of clean scissors and cut the suture that is left outside of the skin at the ends of your incision. 1. The small skin tapes can be removed 7 days after surgery if they have not fallen off by that point. 2. You may keep the wound open to air as much as possible to promote healing after post-op day number 5 unless told otherwise by your doctor. 3. If you think the wound looks like it is becoming infected (redness or worsening drainage) and/or you are experiencing fever, chill or worsening back pain and muscle spasms, contact the office so that we may evaluate you as soon as possible. B. Complications are uncommon, but please contact us if you have any signs or symptoms of: 1. wound infection (fever higher than 102.5 degrees F, redness, separation of wound, drainage, or increasing pain from the incision) 2. blood clots in legs (pain, swelling, redness and warmth in legs) 3. urinary tract infection (fever higher than 102.5 degrees F, burning upon urination or increased frequency of urination) 4. nerve problems (inability to walk on your toes or heels, numbness, loss of bowel or bladder control) 5. any other symptoms that concern you C. Please call the office at if you have any concerns or questions about your operation or recovery. D. No smoking! Smoking drastically decreases the chance of a solid fusion. E. Do not take any anti-inflammatory medications (Indocin, Advil, Motrin, Aspirin, Naprosyn, etc.) as these may inhibit the chance of a solid fusion. Tylenol is okay to take for pain. MANAGING PAIN AFTER SPINAL SURGERY 1. Narcotic medication is intended for short-term use and will be provided for surgical pain. Surgical pain usually lasts for a period of 4-6 weeks. Narcotic medication includes Percocet, Vicodin, Darvocet, Tylenol #3 or Lortab. 2. Longer-term pain is more appropriately treated with non-narcotic medication such as Tylenol ES. 3. Muscle spasm is not appropriately treated with narcotics. Muscle relaxers such as Soma, Flexeril or Skelaxin can be used along with Tylenol ES. 4. Remember that we all live with some "aches and pains". This is not unusual or uncommon after an injury or as we get older. a. Back pain is expected and may include muscle spasms for 4 to 6 weeks after surgery. The pain should gradually improve. If the pain worsens for no apparent reason, please contact the office. b. Intermittent leg pain may also be experienced and should not be concerned about unless it worsens for no apparent reason. If so, please contact the office. 5. We will provide appropriate medication within the normal guidelines of their prescribed use. We will also be very cautious and aware of potential abuse and extended duration of patients' medication needs. a. Pain medications are for your comfort and to assist with sleep and rest so that the tissue can heal. They are not provided in order to return to normal activity and should not be used through the day. To do so or worsening pain at night can result from ongoing tissue damage and development of tolerance to the prescribed medicine. 6. Please allow 2-3 days to process refills. Prescriptions will not be mailed but must be picked up at the office. FOLLOW UP VISIT: Keep your scheduled follow-up appointment. Any questions, please call the office at . Current Hospital Diet Patient's current hospital diet: Regular Diet Discharge Diet Recommended Diet: Regular Diet Procedures Procedures Performed: 1. Lumbar decompression medial facetectomy and foraminotomies L3-4 L4-5 L5-S1. #2 posterior spinal fusion L3-4 L4-5 L5-S1. #3 placement posterior segmental instrument Tatian L3-S1. #4 interbody fusion L5-S1. #5 placed a peek cage 11 x 22 mm L5-S1. #6 placement of locally harvested Carter's allograft in the posterior lateral gutters. #7 placement InFUSE collagen sponge master graft in the posterior gutters and ostium of the interbody space. Pending Studies Studies pending at discharge: no Medical Emergencies . Who to Call and When: Medical Emergencies: If at any time you feel your situation is an emergency, please call 911 immediately. . Non-Emergent Contact Non-Emergency issues call your: Primary Care Provider . "Provider Documentation" section prepared by Jeremy Mireles. .
--- NOTE | 2017-12-21 12:54 | Progress Note ---
Progress Note Date of Service Dec 21, 2017. Progress Note Patient's back pain is controlled. She continues to note marked improvement of her leg pain. Vital signs are stable. On exam she is sitting in the chair at the bedside. She is excellent strength to testing. Assessment status post multilevel lumbar decompression fusion. Plan at this time will continue physical therapy advance her bowel regiment anticipate rehab Friday.
[2017-12-21 15:07] VITALS: BP 126/75; PULSE 86; TEMP 37.4; O2SAT 99
--- NOTE | 2017-12-21 17:45 | Progress Note ---
Medicine Progress Note Date & Time of Visit: Dec 21, 2017 at 17:35. Subjective Pt was seen and examined Lying in bed with no distress Pt said that she feels fine She said that she had physical therapy and did ok with no distress Her pain is controlled Denies any chest pain, palpitation, dizziness and SOB Objective Last 8 Hrs Date Time Temp Pulse Resp B/P (MAP) Pulse Ox O2 Delivery O2 Flow Rate FiO2 12/21/17 15:20 Room Air 12/21/17 15:07 37.4 86 16 126/75 (92) 99 Physical Exam: General- No acute distress Head- atraumatic Eyes- PERRL, EOMI ENT- oropharynx clear Neck- supple, no JVD Lungs- clear to auscultation Heart- regular rhythm Abdomen- normal bowel sounds Extremities-no calf tenderness Neuro- alert, oriented x 3; PERRL, EOMI Skin- warm & dry Laboratory Results: Last 24 Hours Test 12/20/17 20:25 12/21/17 05:20 Hemoglobin 9.4 g/dL 9.6 g/dL Hematocrit 28.4 % 29.5 % White Blood Count 11.74 K/uL Red Blood Count 3.18 M/uL Mean Corpuscular Volume 92.8 fL Mean Corpuscular Hemoglobin 30.2 pg Mean Corpuscular Hemoglobin Concent 32.5 g/dl RDW Standard Deviation 47.5 fL RDW Coefficient of Variation 14.0 % Platelet Count 153 K/uL Mean Platelet Volume 9.8 fL Sodium Level 141 mmol/L Potassium Level 3.5 mmol/L Chloride Level 110 mmol/L Carbon Dioxide Level 26 mmol/L Anion Gap 5.0 mmol/L Blood Urea Nitrogen 8 mg/dl Creatinine 0.74 mg/dl Est Creatinine Clear Calc Drug Dose 58.5 ml/min Estimated GFR () 89.9 Estimated GFR (Non- 77.6 BUN/Creatinine Ratio 10.3 Random Glucose 129 mg/dl Calcium Level 8.1 mg/dl Total Bilirubin 0.8 mg/dl Aspartate Amino Transf (AST/SGOT) 32 U/L Alanine Aminotransferase (ALT/SGPT) 21 U/L Alkaline Phosphatase 78 U/L Total Protein 5.9 gm/dl Albumin 2.3 gm/dl Globulin 3.6 gm/dl Albumin/Globulin Ratio 0.6 Thyroid Stimulating Hormone (TSH) 1.610 uIu/ml Assessment & Plan Low Back Pain S/P day# 2 Lumbar decompression and fusion performed by dr. Mireles Hgb 9.6 today Hgb baseline btw 11 to 12 pain management as per ORTHO Incentive spirometry PT/OT Near Syncope Dizziness Possible vasovagal vs orthostatic vs narcotic No focal neuro deficit on exam received give 1L NS Fall precaution Continue monitor Resolved Anemia acute blood loss Due to recent surgery Received 1 units PRBC Hbg improves to 9.6 Monitor H/H Hypocalcemia Mostly related to recent surgery Calcium was normal on 11/18/17 Calcium 8.1 today Albumin 2.3 today Corrected calcium 9.5 Received 1g calcium gluconate yesterday Stat EKG showed no changes compare to previous one in January 2017 Continue monitor BMP DM type 2 Recent hgb a1c 5.6 on 10/10/17 Will start on insulin sliding scale/ possible low dose lantus during hospital course Stable Continue monitor BP DVT px as per ORTHO CODE status FULL CODE Will follow the patient during the hospital stay. Thank you for the consult Current Inpatient Medications: Current Inpatient Medications Medications (Trade) Dose Ordered Sig/Jesús Route Start Time Stop Time Status Last Admin Dose Admin Promethazine HCl 12.5 mg/Sodium Chloride 50.5 ml @ 202 mls/hr Q6H PRN IV 12/19/17 10:45 01/18/18 10:44 Ondansetron HCl (Zofran Inj) 4 mg Q6H PRN IV 12/19/17 10:45 01/18/18 10:44 Metoclopramide HCl (Reglan Inj) 10 mg Q6H PRN IV 12/19/17 10:45 01/18/18 10:44 Lorazepam (Ativan Tab) 0.5 mg Q8H PRN PO 12/19/17 10:45 01/18/18 10:44 Lorazepam 0.5 mg/ Syringe 0.25 ml @ 1 mls/min Q8H PRN IV 12/19/17 10:45 01/18/18 10:44 Pneumococcal Polysaccharide Vaccine 1 ea PRN PRN N/A 12/19/17 10:45 01/18/18 10:44 Influenza Virus Vacc Triv Types A&B 1 ea PRN PRN N/A 12/19/17 10:45 01/18/18 10:44 Polyethylene (Miralax Powder Packet) 17 gm Q6 PO 12/21/17 06:00 4/17/18 05:59 12/21/17 11:33 17 GM Bisacodyl (Dulcolax Supp) 10 mg DAILY PRN NM 12/19/17 10:45 01/18/18 10:44 Magnesium Hydroxide (Milk Of Magnesia Susp) 30 ml DAILY PRN PO 12/19/17 10:45 01/18/18 10:44 Hydromorphone HCl (Dilaudid Inj) 0.5 mg Q3H PRN IV 12/20/17 06:00 01/03/18 05:59 Future Hold Acetaminophen/ Hydrocodone Bitart ([place] 5/325 Tab) 1-2 tabs prn moder... Q4H PRN PO 12/20/17 06:00 01/03/18 05:59 Acetaminophen (Tylenol Tab) 1,000 mg Q8H PRN PO 12/19/17 10:45 01/18/18 10:44 12/21/17 15:31 1,000 MG Acetaminophen 100 ml @ 400 mls/hr Q8H PRN IV 12/19/17 10:45 01/18/18 10:44 Naloxone HCl (Narcan Inj) 0.1 mg Q5M PRN IV 12/19/17 10:45 01/18/18 10:44 Senna/Docusate Sodium (Senokot S Tab) 2 tab HS PO 12/19/17 21:00 01/18/18 20:59 12/20/17 22:07 2 TAB Sodium Biphosphate/ Sodium Phosphate (Fleet Enema) 132 ml ONE PRN NM 12/19/17 10:45 01/18/18 10:44 Hydroxyzine HCl (Vistaril Tab) 25 mg Q8H PRN PO 12/19/17 10:45 01/18/18 10:44 Al Hydroxide/Mg Hydroxide (Maalox Susp) 30 ml Q6H PRN PO 12/19/17 10:45 01/18/18 10:44 Famotidine (Pepcid Tab) 20 mg Q12H PRN PO 12/19/17 10:45 01/18/18 10:44 Diphenhydramine HCl (Benadryl Cap) 25 mg Q6H PRN PO 12/19/17 10:45 01/18/18 10:44 Aspirin (Ecotrin Tab) 81 mg QAM PO 12/20/17 09:00 01/19/18 08:59 12/21/17 07:30 81 MG Latanoprost (Xalatan Oph Soln) 1 drops HS OP 12/19/17 21:00 01/18/18 20:59 12/20/17 22:09 1 DROPS Levothyroxine Sodium (Synthroid Tab) 50 mcg DAILYBB PO 12/20/17 06:00 01/19/18 05:59 12/21/17 05:39 50 MCG Lisinopril (Zestril Tab) 5 mg QAM PO 12/20/17 09:00 01/19/18 08:59 Future hold Nifedipine (Procardia Xl Tab) 60 mg QAM PO 12/20/17 09:00 01/19/18 08:59 12/21/17 07:31 60 MG Pantoprazole Sodium (Protonix Tab) 40 mg QAM PO 12/20/17 09:00 01/19/18 08:59 12/21/17 07:31 40 MG Pregabalin (Lyrica Cap) 150 mg BID PO 12/19/17 21:00 01/18/18 20:59 12/21/17 07:29 150 MG Oxybutynin Chloride (Ditropan Tab) 5 mg QPM PO 12/19/17 21:00 01/18/18 20:59 12/20/17 22:08 5 MG Hydromorphone HCl (Dilaudid Inj) 1 mg Q3H PRN IV 12/20/17 06:00 01/03/18 05:59 Future Hold
[2017-12-21] MEDS: LATANOPROST 0.005% OP SOLN 2.5 ML BTL OP SCH (20:35)
[2017-12-21] MEDS: OXYBUTYNIN CHLORIDE 5 MG TAB PO SCH (20:36)
[2017-12-21] MEDS: DOCUSATE SODIUM/SENNA 50/8.6MG TAB PO SCH (20:37)
[2017-12-21] MEDS ORDERED: NURSING VERBAL MED ORDER ONE (20:45)
[2017-12-21 23:03] VITALS: BP 113/70; PULSE 91; TEMP 36.7; O2SAT 96
[2017-12-21] MEDS: HYDROCODONE/ACETAMIN 5/325MG TAB PO PRN (23:09)
[2017-12-22] VITALS (8 sets, daily range): BP systolic 104–146; BP diastolic 64–78; PULSE 80–90; TEMP 37.3–37.6; O2SAT 96–97
[2017-12-22] MEDS: HYDROCODONE/ACETAMIN 5/325MG TAB PO PRN ×4 (03:10→23:25)
[2017-12-22] MEDS: LEVOTHYROXINE 50 MCG TAB PO SCH (05:31)
[2017-12-22] MEDS: PREGABALIN 75 MG CAP PO SCH ×2 (07:28→21:48)
[2017-12-22] MEDS: PANTOprazole SOD 40 MG TAB PO SCH (07:30)
[2017-12-22] MEDS: ASPIRIN 81 MG ECTAB PO SCH (07:30)
[2017-12-22] MEDS: NIFEdipine 30 MG CR TAB PO SCH (07:30)
[2017-12-22] MEDS: LISINOPRIL 5 MG TAB PO SCH (07:31)
--- NOTE | 2017-12-22 07:47 | Anesthesiology Progress Note ---
Anesthesia Post Op Note Date & Time Dec 22, 2017 at 07:46 Vital Signs Vital Signs Past 12 Hours Date Time Temp Pulse Resp B/P (MAP) Pulse Ox O2 Delivery O2 Flow Rate FiO2 12/22/17 06:40 37.5 85 16 121/65 (83) 97 Room Air 12/21/17 23:10 Room Air 12/21/17 23:03 36.7 91 17 113/70 (84) 96 Room Air Notes Mental Status: alert / awake / arousable, participated in evaluation Pt Amnestic to Procedure: Yes Nausea / Vomiting: adequately controlled Pain: adequately controlled Airway Patency, RR, SpO2: stable & adequate BP & HR: stable & adequate Hydration State: stable & adequate Anesthetic Complications: no major complications apparent
[2017-12-22] MEDS: ACETAMINOPHEN 500 MG TAB PO PRN (13:27)
--- NOTE | 2017-12-22 15:05 | Discharge Summary ---
Orthopedic Discharge Summary Admission Date/Reason Dec 19, 2017 at 10:47 Lumbar Spinal Stenosis. Discharge Date/Disposition Dec 22, 2017 Rehab Diagnosis Principal Diagnosis: Lumbar spinal stenosis Admission Physical Exam As per Admitting History & Physical. Hospital Course Patient underwent lumbar decompression fusion tolerated as well as taken to the orthopedic floor postop bleed. She progressed nicely throughout the weekend improvement in her leg symptoms on a daily basis. Back pain controlled. She subsequently was discharged to rehab facility. Discharge orders and instructions from the chart for further review. Discharge Instructions Please refer to the electronic Patient Visit Report (Discharge Instructions) for additional information.
--- NOTE | 2017-12-22 15:05 | Progress Note ---
Progress Note Date of Service Dec 22, 2017. Progress Note Back pain is controlled leg symptoms continue to improve. On exam her vital signs are stable she is sitting in the chair at the bedside. She demonstrates excellent strength testing. Assessment status post lumbar decompression fusion per plan at this time we are hoping for rehab facility today.
--- NOTE | 2017-12-22 19:34 | Progress Note ---
Medicine Progress Note Date & Time of Visit: Dec 22, 2017 at 19:32. Subjective Pt was seen and examined Sitting in chair with no distress Pt said that she feels fine She participated in therapy with no problem Denies any chest pain, palpitation, dizziness and SOB Objective Last 8 Hrs Date Time Temp Pulse Resp B/P (MAP) Pulse Ox O2 Delivery O2 Flow Rate FiO2 12/22/17 16:41 37.5 12/22/17 15:24 37.6 80 18 108/71 (83) 96 Room Air 12/22/17 15:20 Room Air 12/22/17 11:43 37.5 82 22 120/74 (89) 97 Room Air Physical Exam: General- No acute distress Head- atraumatic Eyes- PERRL, EOMI ENT- oropharynx clear Neck- supple, no JVD Lungs- clear to auscultation Heart- regular rhythm Abdomen- normal bowel sounds Extremities-no calf tenderness Neuro- alert, oriented x 3; PERRL, EOMI Skin- warm & dry Assessment & Plan Low Back Pain S/P day# 2 Lumbar decompression and fusion performed by dr. Mireles Hgb 9.6 today Hgb baseline btw 11 to 12 pain management as per ORTHO Incentive spirometry PT/OT Near Syncope Dizziness Possible vasovagal vs orthostatic vs narcotic No focal neuro deficit on exam received give 1L NS Fall precaution Continue monitor Resolved Anemia acute blood loss Due to recent surgery Received 1 units PRBC Hbg improves to 9.6 Monitor H/H Hypocalcemia Mostly related to recent surgery Calcium was normal on 11/18/17 Calcium 8.1 yesterday Corrected calcium 9.5 Received 1g calcium gluconate yesterday Stat EKG showed no changes compare to previous one in January 2017 Continue monitor BMP DM type 2 Recent hgb a1c 5.6 on 10/10/17 Will start on insulin sliding scale/ possible low dose lantus during hospital course Stable Continue monitor BP DVT px as per ORTHO CODE status FULL CODE Will follow the patient during the hospital stay. Thank you for the consult Current Inpatient Medications: Current Inpatient Medications Medications (Trade) Dose Ordered Sig/Jesús Route Start Time Stop Time Status Last Admin Dose Admin Promethazine HCl 12.5 mg/Sodium Chloride 50.5 ml @ 202 mls/hr Q6H PRN IV 12/19/17 10:45 01/18/18 10:44 Ondansetron HCl (Zofran Inj) 4 mg Q6H PRN IV 12/19/17 10:45 01/18/18 10:44 Metoclopramide HCl (Reglan Inj) 10 mg Q6H PRN IV 12/19/17 10:45 01/18/18 10:44 Lorazepam (Ativan Tab) 0.5 mg Q8H PRN PO 12/19/17 10:45 01/18/18 10:44 Lorazepam 0.5 mg/ Syringe 0.25 ml @ 1 mls/min Q8H PRN IV 12/19/17 10:45 01/18/18 10:44 Pneumococcal Polysaccharide Vaccine 1 ea PRN PRN N/A 12/19/17 10:45 01/18/18 10:44 Influenza Virus Vacc Triv Types A&B 1 ea PRN PRN N/A 12/19/17 10:45 01/18/18 10:44 Bisacodyl (Dulcolax Supp) 10 mg DAILY PRN OR 12/19/17 10:45 01/18/18 10:44 Magnesium Hydroxide (Milk Of Magnesia Susp) 30 ml DAILY PRN PO 12/19/17 10:45 01/18/18 10:44 Hydromorphone HCl (Dilaudid Inj) 0.5 mg Q3H PRN IV 12/20/17 06:00 01/03/18 05:59 Future Hold Acetaminophen/ Hydrocodone Bitart ([place] 5/325 Tab) 1-2 tabs prn moder... Q4H PRN PO 12/20/17 06:00 01/03/18 05:59 12/22/17 19:26 1 TAB Acetaminophen (Tylenol Tab) 1,000 mg Q8H PRN PO 12/19/17 10:45 01/18/18 10:44 12/22/17 13:27 1,000 MG Acetaminophen 100 ml @ 400 mls/hr Q8H PRN IV 12/19/17 10:45 01/18/18 10:44 Naloxone HCl (Narcan Inj) 0.1 mg Q5M PRN IV 12/19/17 10:45 01/18/18 10:44 Senna/Docusate Sodium (Senokot S Tab) 2 tab HS PO 12/19/17 21:00 01/18/18 20:59 12/20/17 22:07 2 TAB Sodium Biphosphate/ Sodium Phosphate (Fleet Enema) 132 ml ONE PRN OR 12/19/17 10:45 01/18/18 10:44 Hydroxyzine HCl (Vistaril Tab) 25 mg Q8H PRN PO 12/19/17 10:45 01/18/18 10:44 Al Hydroxide/Mg Hydroxide (Maalox Susp) 30 ml Q6H PRN PO 12/19/17 10:45 01/18/18 10:44 Famotidine (Pepcid Tab) 20 mg Q12H PRN PO 12/19/17 10:45 01/18/18 10:44 Diphenhydramine HCl (Benadryl Cap) 25 mg Q6H PRN PO 12/19/17 10:45 01/18/18 10:44 Aspirin (Ecotrin Tab) 81 mg QAM PO 12/20/17 09:00 01/19/18 08:59 12/22/17 07:30 81 MG Latanoprost (Xalatan Oph Soln) 1 drops HS OP 12/19/17 21:00 01/18/18 20:59 12/21/17 20:35 1 DROPS Levothyroxine Sodium (Synthroid Tab) 50 mcg DAILYBB PO 12/20/17 06:00 01/19/18 05:59 12/22/17 05:31 50 MCG Lisinopril (Zestril Tab) 5 mg QAM PO 12/20/17 09:00 01/19/18 08:59 Future hold 12/22/17 07:31 5 MG Nifedipine (Procardia Xl Tab) 60 mg QAM PO 12/20/17 09:00 01/19/18 08:59 12/22/17 07:30 60 MG Pantoprazole Sodium (Protonix Tab) 40 mg QAM PO 12/20/17 09:00 01/19/18 08:59 12/22/17 07:30 40 MG Pregabalin (Lyrica Cap) 150 mg BID PO 12/19/17 21:00 01/18/18 20:59 12/22/17 07:28 150 MG Oxybutynin Chloride (Ditropan Tab) 5 mg QPM PO 12/19/17 21:00 01/18/18 20:59 12/21/17 20:36 5 MG Hydromorphone HCl (Dilaudid Inj) 1 mg Q3H PRN IV 12/20/17 06:00 01/03/18 05:59 Future Hold
[2017-12-22] MEDS: DOCUSATE SODIUM/SENNA 50/8.6MG TAB PO SCH (21:49)
[2017-12-22] MEDS: OXYBUTYNIN CHLORIDE 5 MG TAB PO SCH (21:49)
[2017-12-22] MEDS: LATANOPROST 0.005% OP SOLN 2.5 ML BTL OP SCH (21:50)
[2017-12-23] MEDS: LEVOTHYROXINE 50 MCG TAB PO SCH (05:38)
[2017-12-23 07:18] VITALS: BP 115/68; PULSE 94; TEMP 37.2; O2SAT 95
[2017-12-23] MEDS: ASPIRIN 81 MG ECTAB PO SCH (08:57)
[2017-12-23] MEDS: LISINOPRIL 5 MG TAB PO SCH (08:57)
[2017-12-23] MEDS: NIFEdipine 30 MG CR TAB PO SCH (08:58)
[2017-12-23] MEDS: PREGABALIN 75 MG CAP PO SCH ×2 (09:00→20:21)
[2017-12-23] MEDS: PANTOprazole SOD 40 MG TAB PO SCH (09:17)
--- NOTE | 2017-12-23 13:39 | Progress Note ---
Progress Note Date of Service Dec 23, 2017. Progress Note Patient's back pain is controlled. She still requires significant assistance throughout her activity. Leg symptoms are improved. In exam she is ambulate in the halls with physical therapist and a walker. Assessment status post multilevel lumbar decompression fusion. Plan at this time we are clearly disappointed she was not admitted to [facility]. At this point will continue with physical therapy and plan for other alternatives.
[2017-12-23 15:33] VITALS: BP 178/72; PULSE 114; TEMP 38.4; O2SAT 96
[2017-12-23] MEDS: ACETAMINOPHEN 500 MG TAB PO PRN (15:39)
--- NOTE | 2017-12-23 15:52 | Progress Note ---
Internal Med Progress Note Date of Service: Dec 23, 2017. Provider Documentation: SUBJECTIVE: The patient was seen and examined. She is every other day #3 status post back surgery. Complains of some pain in the back with no radiation of pain. She lives alone and afraid to go home. She has been waiting for placement. OBJECTIVE: Vital Signs-as noted below Exam: General-no apparent distress Eyes-normal ENT-normal Neck-supple Lungs-clear to auscultation bilaterally Heart-regular no murmur appreciated Abdomen-benign, nontender, bowel sounds present Extremities-no edema Neuro-alert awake and oriented Generally weak but no focal neuro deficit Lab data as noted below. ASSESSMENT & PLAN: Low Back Pain S/P day# 3 Lumbar decompression and fusion performed by dr. Mireles Pain management as per ORTHO Incentive spirometry PT/OT-ongoing Near Syncope Possible vasovagal vs orthostatic vs narcotic No focal neuro deficit on exam Received give 1L NS No more episode Acute Blood Loss Anemia Due to recent surgery Received 1 units PRBC Hbg improves to 9.6 Monitor H/H-remains stable Hypocalcemia Mostly related to recent surgery Calcium was normal on 11/18/17 Stat EKG showed no changes compare to previous one in January 2017 Continue monitor BMP Calcium >8 now DM type 2 Recent hgb a1c 5.6 on 10/10/17 Will start on insulin sliding scale/ possible low dose lantus during hospital course Continue monitor Blood Sugar DVT px as per ORTHO CODE status FULL CODE DISPOSITION Medically stable Awaiting placement Vital Signs: Date Time Temp Pulse Resp B/P (MAP) Pulse Ox O2 Delivery O2 Flow Rate FiO2 12/23/17 15:33 38.4 114 20 178/72 (107) 96 Room Air 12/23/17 07:18 37.2 94 18 115/68 (84) 95 Room Air 12/23/17 07:15 Room Air 12/22/17 23:15 Room Air 12/22/17 22:59 37.3 80 16 104/64 (77) 96 Room Air 12/22/17 16:41 37.5
[2017-12-23 17:33] VITALS: TEMP 37.4
[2017-12-23] MEDS: DOCUSATE SODIUM/SENNA 50/8.6MG TAB PO SCH (20:20)
[2017-12-23] MEDS: OXYBUTYNIN CHLORIDE 5 MG TAB PO SCH (20:20)
[2017-12-23] MEDS: LATANOPROST 0.005% OP SOLN 2.5 ML BTL OP SCH (20:21)
[2017-12-23 23:23] VITALS: BP 117/67; PULSE 88; TEMP 37.1; O2SAT 100
[2017-12-23] MEDS: HYDROCODONE/ACETAMIN 5/325MG TAB PO PRN (23:52)
[2017-12-24] MEDS: LEVOTHYROXINE 50 MCG TAB PO SCH (05:33)
[2017-12-24 07:30] VITALS: BP 123/69; PULSE 76; TEMP 37.3; O2SAT 97
[2017-12-24] MEDS: PANTOprazole SOD 40 MG TAB PO SCH (09:18)
[2017-12-24] MEDS: HYDROCODONE/ACETAMIN 5/325MG TAB PO PRN ×2 (09:18→22:24)
[2017-12-24] MEDS: ASPIRIN 81 MG ECTAB PO SCH (09:18)
[2017-12-24] MEDS: LISINOPRIL 5 MG TAB PO SCH (09:18)
[2017-12-24] MEDS: NIFEdipine 30 MG CR TAB PO SCH (09:19)
[2017-12-24] MEDS: PREGABALIN 75 MG CAP PO SCH ×2 (09:19→21:27)
--- NOTE | 2017-12-24 13:01 | Progress Note ---
Progress Note Date of Service Dec 24, 2017. Progress Note Patient's back pain is controlled steadily improving. Leg symptoms improved. Vital signs stable. On exam she has good strength testing appears comfortable. Assessment this time she is progressing more hoping to discharge home tomorrow with home health.
[2017-12-24] MEDS ORDERED: POTASSIUM CHLORIDE 10 MEQ TABCR PO STA (14:51)
--- NOTE | 2017-12-24 14:54 | Progress Note ---
Internal Med Progress Note Date of Service: Dec 24, 2017. Provider Documentation: SUBJECTIVE: The patient was seen and examined. She is every other day #3 status post back surgery. Complains of some pain in the back with no radiation of pain. She lives alone and afraid to go home. She has been waiting for placement. No new symptoms except generalized weakness OBJECTIVE: Vital Signs-as noted below Exam: General-no apparent distress Eyes-normal ENT-normal Neck-supple Lungs-clear to auscultation bilaterally Heart-regular no murmur appreciated Abdomen-benign, nontender, bowel sounds present Extremities-no edema Neuro-alert awake and oriented Generally weak but no focal neuro deficit Lab data as noted below. ASSESSMENT & PLAN: Low Back Pain S/P day# 4 Lumbar decompression and fusion performed by dr. Mireles Pain management as per ORTHO Incentive spirometry PT/OT-ongoing and doing fine Near Syncope Possible vasovagal vs orthostatic vs narcotic No focal neuro deficit on exam Received give 1L NS No more episode,no more dizziness on ambulation Acute Blood Loss Anemia Due to recent surgery Received 1 units PRBC Hbg improves to 9.6 Monitor H/H-remains stable Hypocalcemia Mostly related to recent surgery Calcium was normal on 11/18/17 Stat EKG showed no changes compare to previous one in January 2017 Continue monitor BMP Calcium >8 now DM type 2 Recent hgb a1c 5.6 on 10/10/17 Will start on insulin sliding scale/ possible low dose lantus during hospital course Continue monitor Blood Sugar DVT px as per ORTHO CODE status FULL CODE DISPOSITION Medically stable Awaiting placement Vital Signs: Date Time Temp Pulse Resp B/P (MAP) Pulse Ox O2 Delivery O2 Flow Rate FiO2 12/24/17 08:08 Room Air 12/24/17 07:30 37.3 76 16 123/69 (87) 97 Room Air 12/23/17 23:50 Room Air 12/23/17 23:23 37.1 88 15 117/67 (84) 100 Room Air 12/23/17 17:33 37.4 12/23/17 15:34 Room Air 12/23/17 15:33 38.4 114 20 178/72 (107) 96 Room Air
[2017-12-24 15:15] VITALS: BP 123/74; PULSE 91; TEMP 37.3; O2SAT 98
[2017-12-24] MEDS ORDERED: NURSING DECISION MEDICATION ORDER SCH (15:30)
[2017-12-24] MEDS ORDERED: COUGH DROP (SUGAR FREE) LOZ 24 LOZ/1 BOX LOZ PRN (15:30)
[2017-12-24] MEDS: DOCUSATE SODIUM/SENNA 50/8.6MG TAB PO SCH (21:00)
[2017-12-24] MEDS: LATANOPROST 0.005% OP SOLN 2.5 ML BTL OP SCH (21:27)
[2017-12-24] MEDS: OXYBUTYNIN CHLORIDE 5 MG TAB PO SCH (21:27)
[2017-12-24 23:16] VITALS: BP 121/72; PULSE 91; TEMP 37.8; O2SAT 94
[2017-12-25] MEDS: LEVOTHYROXINE 50 MCG TAB PO SCH (05:41)
[2017-12-25 05:56] VITALS: TEMP 37.4
[2017-12-25 07:00] VITALS: BP 142/76; PULSE 85; TEMP 37.5; O2SAT 96
[2017-12-25] MEDS: PREGABALIN 75 MG CAP PO SCH ×2 (08:16→20:55)
[2017-12-25] MEDS: HYDROCODONE/ACETAMIN 5/325MG TAB PO PRN ×3 (08:17→22:19)
[2017-12-25] MEDS: ASPIRIN 81 MG ECTAB PO SCH (08:17)
[2017-12-25] MEDS: PANTOprazole SOD 40 MG TAB PO SCH (08:18)
[2017-12-25] MEDS: LISINOPRIL 5 MG TAB PO SCH (08:18)
[2017-12-25] MEDS: NIFEdipine 30 MG CR TAB PO SCH (08:18)
--- NOTE | 2017-12-25 14:01 | Progress Note ---
Progress Note Date of Service Dec 25, 2017. Progress Note Patient's back pain is improving. Her ability to ambulate and transfers also improving. On exam she is ambulate with a walker has reasonable strength testing. Assessment status post multilevel lumbar decompression and fusion prep and at this time we are attempting to have her approved for [place] versus discharge home.
[2017-12-25 15:13] VITALS: BP 130/74; PULSE 87; TEMP 37.9; O2SAT 95
[2017-12-25] MEDS: DOCUSATE SODIUM/SENNA 50/8.6MG TAB PO SCH (20:55)
[2017-12-25] MEDS: LATANOPROST 0.005% OP SOLN 2.5 ML BTL OP SCH (20:55)
[2017-12-25] MEDS: OXYBUTYNIN CHLORIDE 5 MG TAB PO SCH (20:56)
[2017-12-25 23:04] VITALS: BP 113/68; PULSE 83; TEMP 37.3; O2SAT 96
[2017-12-26] MEDS: LEVOTHYROXINE 50 MCG TAB PO SCH (05:57)
[2017-12-26 07:14] LABS: HEMATOCRIT 26.9 % (37-47); HEMOGLOBIN 8.7 g/dL (12.0-16.0); MEAN CELL VOLUME 94.1 fL (80-100); MEAN CORPUSCULAR HEMOGLOBIN 30.4 pg (25-34); MEAN CORPUSCULAR HGB CONC 32.3 g/dl (32-36); PLATELET COUNT 309 K/uL (130-400); RED CELL DISTRIBUTION WIDTH CV 13.5 % (11.5-14.5); RED CELL DISTRIBUTION WIDTH SD 46.6 fL (36.4-46.3); WHITE BLOOD COUNT 5.91 K/uL (4.8-10.8)
[2017-12-26 07:44] LABS: CALCIUM 8.7 mg/dl (8.5-10.1); CREATININE 0.71 mg/dl (0.60-1.20)
[2017-12-26 07:58] VITALS: BP 128/68; PULSE 74; TEMP 37.2; O2SAT 96
[2017-12-26 08:04] VITALS: O2SAT 96
[2017-12-26] MEDS: PANTOprazole SOD 40 MG TAB PO SCH (09:01)
[2017-12-26] MEDS: ASPIRIN 81 MG ECTAB PO SCH (09:01)
[2017-12-26] MEDS: LISINOPRIL 5 MG TAB PO SCH (09:02)
[2017-12-26] MEDS: NIFEdipine 30 MG CR TAB PO SCH (09:03)
[2017-12-26 09:04] VITALS: BP 116/72; PULSE 85
[2017-12-26] MEDS: PREGABALIN 75 MG CAP PO SCH (09:06)
--- NOTE | 2017-12-26 11:31 | Discharge Summary ---
Orthopedic Discharge Summary Admission Date/Reason Dec 19, 2017 at 10:47 Lumbar Spinal Stenosis. Discharge Date/Disposition Dec 26, 2017 Home Diagnosis Principal Diagnosis: Lumbar spinal stenosis Admission Physical Exam As per Admitting History & Physical. Hospital Course Patient underwent multilevel lumbar decompression fusion. Postoperatively she was taken to the orthopedic floor. She progressed appropriately and steadily over the course of the week. Unfortunately she was not able to be discharged to rehab facility secondary to her insurance but progressed reasonably well with hospital management and therapy. Discharge orders and instructions can be found in the chart for further review. Discharge Instructions Please refer to the electronic Patient Visit Report (Discharge Instructions) for additional information.
[2017-12-26] MEDS: HYDROCODONE/ACETAMIN 5/325MG TAB PO PRN ×2 (11:32→15:18)
[2017-12-26 13:07] VITALS: BP 116/72; PULSE 85; TEMP 37.2; O2SAT 96
== END 2017-12-26 16:30 | disposition home health service (06) | DRG 454 ==
LOC: C.ACU 05:12 → C.3E 10:47 → ENRESERV 11:34
PROVIDERS: ADMIT Orthopaedic Surgery Orthopaedic Surgery of the Spine; ATTEND Orthopaedic Surgery Orthopaedic Surgery of the Spine
PROC: 0SG30AJ Fusion of Lumbosacral Joint with Interbody Fusion Device, Posterior Approach, Anterior Column, Open Approach (ICD-10-PCS; principal; 2017-12-19 07:45)
PROC: 0SG3071 Fusion of Lumbosacral Joint with Autologous Tissue Substitute, Posterior Approach, Posterior Column, Open Approach (ICD-10-PCS; principal; 2017-12-19 07:45)
PROC: 0SG1071 Fusion of 2 or more Lumbar Vertebral Joints with Autologous Tissue Substitute, Posterior Approach, Posterior Column, Open Approach (ICD-10-PCS; principal; 2017-12-19 07:45)
PROC: 0ST40ZZ Resection of Lumbosacral Disc, Open Approach (ICD-10-PCS; principal; 2017-12-19 07:45)
DX: M48.061 Spinal stenosis, lumbar region without neurogenic claudication (principal); D62 Acute posthemorrhagic anemia; I12.9 Hypertensive chronic kidney disease with stage 1 through stage 4 chronic kidney disease, or unspecified chronic kidney disease; E11.22 Type 2 diabetes mellitus with diabetic chronic kidney disease; N18.3 Chronic kidney disease, stage 3 (moderate); R55 Syncope and collapse; E78.5 Hyperlipidemia, unspecified; K21.9 Gastro-esophageal reflux disease without esophagitis; F32.9 Major depressive disorder, single episode, unspecified; E83.51 Hypocalcemia; Z79.82 Long term (current) use of aspirin; Z79.899 Other long term (current) drug therapy; Z88.6 Allergy status to analgesic agent; Z88.0 Allergy status to penicillin; Z88.1 Allergy status to other antibiotic agents; Z88.8 Allergy status to other drugs, medicaments and biological substances

== ENCOUNTER 2019-08-20 07:56 | Inpatient (IN) ==
--- NOTE | 2019-08-05 15:07 | PAT Medication Instructions ---
Medication Instructions Date of Service August 05, 2019 Home Medications acetaminophen 1,000 mg PO BID ascorbic acid (vitamin C) 500 mg PO QAM aspirin [Aspirin Low Dose] 81 mg PO QAM cholecalciferol (vitamin D3) [Vitamin D3] 5,000 unit PO QAM cinnamon bark [Cinnamon] 500 mg PO QAM conjugated estrogens [Premarin] 0.3125 mg VAGINAL DAILY PRN donepezil [Aricept] 5 mg PO QAM latanoprost 1 drp OPHTHALMIC (EYE) HS lisinopril 5 mg PO QAM multivitamin 1 tab PO QAM nifedipine 60 mg PO QAM oxybutynin chloride 5 mg PO HS pantoprazole 40 mg PO QAM pravastatin 20 mg PO QPM pregabalin [Lyrica] 75 mg PO TID turmeric 400 mg PO QAM ASK your surgeon for instructions conjugated estrogens [Premarin] 0.3125 mg VAGINAL DAILY PRN ASK your prescriber and surgeon aspirin [Aspirin Low Dose] 81 mg PO QAM STOP taking 2 weeks before surgery (or as soon as possible if surgery is within 2 weeks) turmeric 400 mg PO QAM cinnamon bark [Cinnamon] 500 mg PO QAM DO NOT take the morning of surgery ascorbic acid (vitamin C) 500 mg PO QAM cholecalciferol (vitamin D3) [Vitamin D3] 5,000 unit PO QAM lisinopril 5 mg PO QAM multivitamin 1 tab PO QAM Take morning of surgery With a small sip of water, OTHERWISE NOTHING TO EAT OR DRINK AFTER MIDNIGHT: acetaminophen 1,000 mg PO BID (okay to take up to 4 hours prior to surgery if needed) donepezil [Aricept] 5 mg PO QAM nifedipine 60 mg PO QAM pantoprazole 40 mg PO QAM pregabalin [Lyrica] 75 mg PO TID Take evening before surgery acetaminophen 1,000 mg PO BID latanoprost 1 drp OPHTHALMIC (EYE) HS oxybutynin chloride 5 mg PO HS pravastatin 20 mg PO QPM pregabalin [Lyrica] 75 mg PO TID Other Notes If you have any questions please call us at [phone] or [phone] or [phone] or [phone]
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
--- NOTE | 2019-08-06 09:13 | XRay Report ---
XR chest Pre-admission PA/Lat HISTORY: Preop. COMPARISON: Chest 01/06/2017. FINDINGS: Tortuous thoracic aorta. The heart is normal in size. The lungs are clear. No pleural effus ions. No pneumothorax. Posterior fusion hardware within the lumbar spine. Degenerative changes throug hout the thoracic spine. IMPRESSION: No significant change compared to the prior study. No acute process. Electronically signed by: Kingsley Silverman M.D. 08/06/2019 9:12 AM
[2019-08-06 10:05] LABS: Basophils # (auto) 0.06 K/uL (0-0.2); Basophils % (auto) 1.6 %; Eosinophils % (auto) 10.4 %; Hemoglobin 11.7 g/dL (12.0-16.0); Immature Granulocytes # (auto) 0.01 K/uL (0.00-0.02); Immature Granulocytes % (auto) 0.3 %; Lymphocytes # (auto) 1.52 K/uL (1.2-3.4); Lymphocytes % (auto) 39.5 %; Mean Corpuscular Hemoglobin 31.5 pg (25-34); Mean Corpuscular Hgb Conc 32.5 g/dL (32-36); Mean Corpuscular Volume 96.8 fL (80-100); Mean Platelet Volume 10.3 fL (7.4-10.4); Monocytes % (auto) 10.4 %; Neutrophils # (auto) 1.46 K/uL (1.4-6.5); Neutrophils % (auto) 37.8 %; Platelet Count 218 K/uL (130-400); RDW Standard Deviation 45.9 fL (36.4-46.3); Red Blood Count 3.72 M/uL (4.2-5.4); White Blood Count 3.85 K/uL (4.8-10.8)
[2019-08-06 10:12] LABS: BUN Creatinine Ratio 16.6 (10-20); Est GFR (African American) 78.3; Est GFR (Non-African American) 67.6; Potassium 4.1 mmol/L (3.5-5.1)
[2019-08-06 10:30] LABS: Partial Thromboplastin Ratio 1.2; Partial Thromboplastin Time 32.5 Seconds (21.0-31.0); Prothrombin Time 10.4 Seconds (9.0-12.0)
[2019-08-06 10:33] LABS: Appearance Urine Clear (Clear); Bacteria Urine Automated Negative (Negative); Bilirubin Urine Negative (Negative); Blood Urine Negative (Negative); Color Urine Yellow; Glucose Urine UA Negative (Negative); Ketones Urine Negative (Negative); Leukocyte Esterase Urine 1+ (Negative); Nitrite Urine Negative (Negative); Protein Urine Negative (Negative); RBC Urine Automated 0-4 /hpf (0-4); Specific Gravity Urine 1.016 (1.000-1.030); Urobilinogen Urine Negative (Negative); pH Urine 6.5 (4.5-7.5)
[2019-08-06 10:53] LABS: Estimated Average Glucose 117 mg/dl; Hemoglobin A1C 5.7 % (4.5-5.6)
[~2019-08-20 07:56] MED LIST changes: -ACET-1256 PO; +ACETAMINOPHEN 500 MG TAB PO SCH; -ASCO500T3 PO; -ASPI81TA28 PO; -CARI350T28 PO; +CLINDAMYCIN 600 MG/54 ML BAG IV SCH; +CeleBREX 200 MG CAP PO SCH; +GABAPENTIN 300 MG CAP PO SCH; -LATA0.009 OP; -LEVO50TA6 PO; -LISI-729 PO; +LR 15ML/HR IV SCH; -MULT-506 PO; -NIFE30TA83 PO; -OXYBUTYNIN PO; -PANT40TA PO; -PRAV20TA PO; -PREG1CAP28 PO; -PREMARIN TOP
[2019-08-20] MEDS ORDERED: GLYCOPYRROLATE 0.2 MG/ML VIAL ONE ×2 (09:08→11:49)
[2019-08-20] MEDS ORDERED: PROPOFOL IV EMULSION 10 MG/ML 20 ML VIAL IV ONE (09:08)
[2019-08-20] MEDS ORDERED: NEOSTIGMINE METHYLSULFATE 1 MG/ML 10ML VIAL ONE (09:08)
[2019-08-20] MEDS ORDERED: DEXAMETHASONE SOD INJ 4 MG/ML VIAL ONE (09:08)
[2019-08-20] MEDS ORDERED: MIDAZOLAM HCL 1 MG/ML 2ML VIAL ONE (09:08)
[2019-08-20] MEDS ORDERED: LIDOCAINE HCL 2% 2 ML VIAL/AMP(20MG/ML) INFIL ONE (09:08)
[2019-08-20] MEDS ORDERED: ONDANSETRON INJ 2 MG/ML 2 ML VIAL ONE (09:08)
[2019-08-20] MEDS ORDERED: fentaNYL citrate 100 MCG/2 ML VIAL ONE (09:08)
[2019-08-20] MEDS ORDERED: ePHEDrine sulfate 50 MG/ML AMP IV PRN (10:02)
[2019-08-20] MEDS ORDERED: ATROPINE SULFATE 0.1 MG/ML 10ML SYR IV PRN (10:02)
[2019-08-20] MEDS ORDERED: ONDANSETRON INJ 2 MG/ML 2 ML VIAL IV PRN ×2 (10:02→14:22)
[2019-08-20] MEDS ORDERED: HYDROmorphone INJ 1 MG/ML SYRINGE IV PRN ×2 (10:02→14:22)
--- NOTE | 2019-08-20 10:20 | History & Physical Bridge Note ---
Date of Service August 20, 2019 History & Physical Bridge Note I have examined the patient, reviewed the History & Physical and in the interval since the performance of the History & Physical I have noted the following changes of clinical significance: no changes noted
--- NOTE | 2019-08-20 10:22 | History & Physical Report ---
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 After failing course of nonoperative care like to undergo the above-mentioned procedure. Allergies Allergy/AdvReac Type Severity Reaction Status Date / Time aspirin Allergy Intermediate RASH Verified 08/20/19 08:43 Cipro Allergy Intermediate ITCHING Verified 12/19/17 10:33 ALL OVER BODY ciprofloxacin Allergy Intermediate ITCHING Verified 08/20/19 08:43 ALL OVER BODY penicillin G Allergy Intermediate HIVES Verified 08/20/19 08:43 oxycodone Allergy Unknown R HAND Verified 08/20/19 08:43 WENT WEAK, NO MOTOR SKILL cyclobenzaprine AdvReac Mild sedation Verified 08/20/19 08:43 per PCP note prednisone AdvReac Mild LOOPY Verified 08/20/19 08:43 DISORIENTED [id number]-Kft Reductase AdvReac Mild MUSCLE Verified 08/20/19 08:43 Inhibitor ACHES clarithromycin AdvReac Unknown FELT OUT Verified 08/20/19 08:43 OF SPACE Home Medications Home Medications Medication Instructions Recorded Confirmed Type acetaminophen 1,000 mg PO BID 08/04/19 08/20/19 History ascorbic acid (vitamin C) 500 mg PO QAM 08/04/19 08/20/19 History aspirin [Aspirin Low Dose] 81 mg PO QAM 08/04/19 08/20/19 History cholecalciferol (vitamin D3) 5,000 unit PO QAM 08/04/19 08/20/19 History [Vitamin D3] cinnamon bark [Cinnamon] 500 mg PO QAM 08/04/19 08/20/19 History conjugated estrogens [Premarin] 0.3125 mg VAGINAL DAILY PRN 08/04/19 08/20/19 History donepezil [Aricept] 5 mg PO QAM 08/04/19 08/20/19 History latanoprost 1 drp OPHTHALMIC (EYE) HS 08/04/19 08/20/19 History lisinopril 5 mg PO QAM 08/04/19 08/20/19 History multivitamin 1 tab PO QAM 08/04/19 08/20/19 History nifedipine [Procardia XL] 60 mg PO QAM 08/04/19 08/20/19 History oxybutynin chloride 5 mg PO HS 08/04/19 08/20/19 History pantoprazole 40 mg PO QAM 08/04/19 08/20/19 History pravastatin 20 mg PO QPM 08/04/19 08/20/19 History pregabalin [Lyrica] 75 mg PO TID 08/04/19 08/20/19 History turmeric 400 mg PO QAM 08/04/19 08/20/19 History Past Med/Surg History Medical History GERD (gastroesophageal reflux disease) controlled Diabetes mellitus, type 2 NIDDM Glaucoma History of blood transfusion 2017 post-op History of syncope 2018 felt 2/2 acute blood loss post-op/no issues since Hyperlipidemia Hypertension Osteoarthritis Presence of pessary Spinal stenosis Transient ischemic attack (TIA) most recent 2006 Urinary urgency Surgical History History of left hip replacement History of left knee replacement History of lumbosacral spine surgery History of right knee joint replacement Hx of left cataract extraction Hx of right cataract extraction Social History Preferred Language: Nepalese Communication Ability: Effective Beliefs That Will Affect Care: None Current Living Situation: Alone Feels Safe at Home: Yes Safety Concerns: Feels Safe At This Time Smoking Status: Never smoker Do You Dip or Chew Tobacco: No ; Second Hand Exposure: No ; Hx Alcohol Use: No Hx Substance Use: No Physical Exam Physical Exam: Patient is alert and oriented neurologically intact. Results & Data Vital Signs (Past 12 Hours) Vital Signs Temp Pulse Resp BP Pulse Ox 08/20/19 08:47 36.7 C 66 18 122/69 98
[2019-08-20] MEDS ORDERED: BACITRACIN INJ 50,000 UNIT VIAL ONE (10:52)
[2019-08-20] MEDS ORDERED: BUPIVACAINE/EPINEPHRINE 0.25% 1:200,000 30 ML VIAL ONE (10:52)
--- NOTE | 2019-08-20 12:36 | Operative Report ---
Post Operative Report Pre & Post Diagnosis Operation Date: 08/20/19 10:05 Pre-Op Diagnosis: Spinal Stenosis, Thoracic Region with myelopathy Post-Op Diagnosis: Spinal Stenosis, Thoracic Region with myelopathy I identified the patient and participated in the time-out.: Yes Procedure Operation Date: 08/20/19 10:05 Actual Procedures #1 thoracic decompression with bilateral medial facetectomies T11-T12. #2 posterior spinal fusion T11-T12. #3 placement posterior instrumentation T11- T12. #4 placement infuse collagen sponge combined with master graft in the posterior lateral gutters T11-T12. Surgeon Jeremy Mireles, Answering Service Operator Anastacio Recio Estimated Blood Loss 100 Findings Consistent with Post-Op Diagnosis Specimens None Indications This is an 79-year-old female well-known to the presents with worsening back and leg symptoms after failing nonoperative care would like to undergo the above- mentioned procedure. Description of Procedure Patient was met with identified and informed consent obtained. Patient was then taken to the operative suite with intubation placed in the prone position the Shoaib table on top of the Danny frame. All bony prominences well-padded eyes inspected to ensure no external pressure placed upon the peer at this point the thoracic lumbar spine was prepped and draped in normal sterile fashion. Sharp dissection with the assistance of Bovie cautery performed down to and exposing the lamina and transverse processes of T11 and T12. Self-retaining retractors placed. Then performed a complete laminectomy of T11 including bilateral medial facetectomies to address severe stenosis. Pedicle screw was then placed in T11 and T12 and the probably size teresa locked into position. Transverse processes of T11-T12 were then burred to subcortical being bone. Infuse collagen sponge mass graft local autograft placed in the posterior lateral gutters. 15 round JEFFREY drain inserted. Incision was then closed with 1 Vicryl in the fascia 2-0 Vicryl subtenons in 4 Monocryl for final skin closure. Steri-Strip sterile dressings placed. Patient awakened taken to PACU stable condition. Please note Anastacio Recio present at the entire procedure involved the patient positioning complex portions of the surgery and final skin closure. Lastly spinal cord monitoring was utilized and no changes noted. I attest to the content of the Intraoperative Record and any orders documented therein. Any exceptions are noted below.
[2019-08-20] MEDS ORDERED: SUGAMMADEX SODIUM 200 MG/2 ML VIAL IV ONE (12:43)
--- NOTE | 2019-08-20 13:09 | Fluoroscopy Report ---
FL thoracic spine 2V HISTORY: 79 years-old Female T11-T12 DECOMPRESSION AND FUSION COMPARISON: None available TECHNIQUE: 2 spot fluoroscopic images of the thoracic spine were obtained utilizing 25.6 seconds fluo roscopy time FINDINGS: Interbody teresa and screw fusion hardware is noted within the lower thoracic spine, likely at the level of T11-T12. Satisfactory alignment without acute fracture or dislocation. No retained foreign body i dentified. Partially imaged lower lumbar fusion hardware is also noted. Multilevel disc space narrowi ng with spondylitic spurring. Demineralized appearance of the bones. IMPRESSION: Fluoroscopic assistance as above. Please see operative report for further details. The above report was generated using voice recognition software. It may contain grammatical, syntax o r spelling errors. Electronically signed by: Jaspal Del Valle M.D. 08/20/2019 1:08 PM
[2019-08-20] MEDS: fentaNYL citrate 100 MCG/2 ML VIAL IV PRN ×2 (13:15→13:38)
[2019-08-20] MEDS ORDERED: ALUMINUM/MAGNESIUM SUSP 30 ML UDC PO PRN (14:22)
[2019-08-20] MEDS ORDERED: PROMETHAZINE HCL 12.5 MG in SODIUM CHLORIDE 0.9% 50 ML IV PRN (14:22)
[2019-08-20] MEDS ORDERED: DO NOT ADMINISTER PNEUMOCOCCAL VACCINE PRN (14:22)
[2019-08-20] MEDS ORDERED: ACETAMINOPHEN 500 MG TAB PO PRN (14:22)
[2019-08-20] MEDS ORDERED: LORazepam 0.5 MG/1 ML VIAL IV PRN (14:22)
[2019-08-20] MEDS ORDERED: HYDROmorphone INJ 0.5 MG/0.5 ML SYR IV PRN (14:22)
[2019-08-20] MEDS ORDERED: SOD PHOSPHATE/SOD BIPHOSPHATE ENEMA 132 ML BTL PR PRN (14:22)
[2019-08-20] MEDS ORDERED: FAMOTIDINE 20 MG TAB PO PRN (14:22)
[2019-08-20] MEDS ORDERED: ONDANSETRON 4 MG OD TAB PO PRN (14:22)
[2019-08-20] MEDS ORDERED: METOCLOPRAMIDE HCL INJ 5 MG/ML 2 ML VIAL IV PRN (14:22)
[2019-08-20] MEDS ORDERED: LORazepam 0.5 MG TAB PO PRN (14:22)
[2019-08-20] MEDS ORDERED: ACETAMINOPHEN 1,000 MG/100 ML VIAL IV PRN (14:22)
[2019-08-20] MEDS ORDERED: MAGNESIUM HYDROXIDE SUSP 30 ML UDC PO PRN (14:22)
[2019-08-20] MEDS ORDERED: BISACODYL 10 MG SUPP PR PRN (14:22)
[2019-08-20] MEDS ORDERED: NALOXONE HCL 0.4 MG/1 ML VIAL/CARP IV PRN (14:22)
[2019-08-20] MEDS ORDERED: DO NOT ADMINISTER FLU VACCINE PRN (14:22)
[2019-08-20] MEDS: SODIUM CHLORIDE 0.9% 1000ML 1,000 ML IV SCH (14:33)
[2019-08-20] MEDS ORDERED: HydrALAZINE HCL 20 MG/ML VIAL IV PRN (15:00)
--- NOTE | 2019-08-20 15:02 | History & Physical Report ---
Date of Service August 20, 2019 History of Present Illness Primary Care Provider: Neto Boston MD Allergies Allergy/AdvReac Type Severity Reaction Status Date / Time aspirin Allergy Intermediate RASH Verified 08/20/19 08:43 Cipro Allergy Intermediate ITCHING Verified 12/19/17 10:33 ALL OVER BODY ciprofloxacin Allergy Intermediate ITCHING Verified 08/20/19 08:43 ALL OVER BODY penicillin G Allergy Intermediate HIVES Verified 08/20/19 08:43 oxycodone Allergy Unknown R HAND Verified 08/20/19 08:43 WENT WEAK, NO MOTOR SKILL cyclobenzaprine AdvReac Mild sedation Verified 08/20/19 08:43 per PCP note prednisone AdvReac Mild LOOPY Verified 08/20/19 08:43 DISORIENTED Ewqoroy-Von-Ian Reductase AdvReac Mild MUSCLE Verified 08/20/19 08:43 Inhibitor ACHES clarithromycin AdvReac Unknown FELT OUT Verified 08/20/19 08:43 OF SPACE Home Medications Home Medications Medication Instructions Recorded Confirmed Type acetaminophen 1,000 mg PO BID 08/04/19 08/20/19 History ascorbic acid (vitamin C) 500 mg PO QAM 08/04/19 08/20/19 History aspirin [Aspirin Low Dose] 81 mg PO QAM 08/04/19 08/20/19 History cholecalciferol (vitamin D3) 5,000 unit PO QAM 08/04/19 08/20/19 History [Vitamin D3] cinnamon bark [Cinnamon] 500 mg PO QAM 08/04/19 08/20/19 History conjugated estrogens [Premarin] 0.3125 mg VAGINAL DAILY PRN 08/04/19 08/20/19 History donepezil [Aricept] 5 mg PO QAM 08/04/19 08/20/19 History latanoprost 1 drp OPHTHALMIC (EYE) HS 08/04/19 08/20/19 History lisinopril 5 mg PO QAM 08/04/19 08/20/19 History multivitamin 1 tab PO QAM 08/04/19 08/20/19 History nifedipine [Procardia XL] 60 mg PO QAM 08/04/19 08/20/19 History oxybutynin chloride 5 mg PO HS 08/04/19 08/20/19 History pantoprazole 40 mg PO QAM 08/04/19 08/20/19 History pravastatin 20 mg PO QPM 08/04/19 08/20/19 History pregabalin [Lyrica] 75 mg PO TID 08/04/19 08/20/19 History turmeric 400 mg PO QAM 08/04/19 08/20/19 History Past Med/Surg History Medical History Diabetes mellitus, type 2 NIDDM GERD (gastroesophageal reflux disease) controlled Glaucoma History of blood transfusion 2018 post-op History of syncope 2018 felt 2/2 acute blood loss post-op/no issues since Hyperlipidemia Hypertension Osteoarthritis Presence of pessary Spinal stenosis Transient ischemic attack (TIA) most recent 2006 Urinary urgency Surgical History History of left hip replacement History of left knee replacement History of lumbosacral spine surgery History of right knee joint replacement Hx of left cataract extraction Hx of right cataract extraction Social History Preferred Language: Iranian Communication Ability: Effective Beliefs That Will Affect Care: None Current Living Situation: Alone Feels Safe at Home: Yes Safety Concerns: Feels Safe At This Time Smoking Status: Never smoker Do You Dip or Chew Tobacco: No ; Second Hand Exposure: No ; Hx Alcohol Use: No Hx Substance Use: No Review of Systems Review of Systems: All systems reviewed & are unremarkable except as noted in HPI & below Results & Data Vital Signs (Past 12 Hours) Vital Signs Temp Pulse Pulse Resp BP Pulse Ox 08/20/19 14:35 36.8 C 68 15 163/83 H 100 08/20/19 14:05 36.7 C 71 14 159/83 H 96 08/20/19 13:50 37.4 C 73 17 154/87 H 99 08/20/19 13:40 70 19 160/88 H 100 08/20/19 13:30 75 19 173/89 H 100 08/20/19 13:20 73 21 160/87 H 100 08/20/19 13:10 82 22 172/96 H 100 08/20/19 13:00 101 H 16 162/94 H 100 08/20/19 12:54 36.3 C L 100 H 14 161/92 H 100 08/20/19 08:47 36.7 C 66 18 122/69 98 Code Status & VTE Plan VTE Prophylaxis Plan VTE Prophylaxis will be ordered: Yes
--- NOTE | 2019-08-20 15:11 | Consultation ---
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 Mireles EBL 100ml tolerated procedure well pain/wound management per ortho activity and therapy as directed by ortho monitor H/H incentive spirometry (2) Anemia: Preop H&H 11.7 and 36.0 Monitor CBC EBL 100 ml (3) HTN (hypertension): Blood pressure elevated postoperatively On lisinopril and nifedipine Add as needed hydralazine for SBP > 180 (4) Dyslipidemia: Continue pravastatin (5) GERD (gastroesophageal reflux disease): Continue PPI (6) Pre-diabetes: Preop A1c 5.7 Previously had been on metformin, but was discontinued 2 years ago Monitor fasting glucose (7) DVT prophylaxis: SCD/TEDS, ASA Disposition: per attending Follow up: PCP Dr. Boston upon discharge Pt was seen and examined in collaboration with Dr. Wolfe, please see addendum Starting 08/21/19 pt will be under the care of Dr. Subramanian Thank you for this consultation. We will follow the patient with you during their hospital stay. You can [facility] a [facility] via pager @ [phone]. Supervising Physician Co-Signing Physician Notes Attending addendum: The patient was seen and examined in medical floor She is a status post thoracic decompression and fusion involving T11 and T12 She has some pain at the back and some numbness involving the legs but denies any other symptoms following surgery On examination No apparent distress at rest Hemodynamically stable Chest-clear to auscultate bilaterally Heart-S1-S2, regular with a 2/6 systolic murmur over precordium Abdomen-benign Extremities-negative for any edema [employer] CHIEF-alert, awake and oriented x3 Her labs and imaging studies reviewed Medically stable Agree with assessment and plan as outlined above by FANI Miranda Dr History of Present Illness Requesting Physician: Dr. Mireles Reason for Consultation: Postop medical management Attending Physician: Jeremy Mireles DO History of Present Illness This is an 79-year-old -Italian female with significant past medical history of HTN, HLD, hypothyroidism, prediabetes, chronic low back pain, TIA who presents to [facility] ED for elective T11-T12 decompression fusion by Dr. Mireles. Postoperatively she does complain of some incisional discomfort. She denies any fever, chills, sweats, lightheadedness, dizziness, chest pain, shortness, cough, nausea, vomiting, abdominal pain. She has urinated postoperatively. Complains of intermittent incontinence which is not unusual for her. 2 daughters and family friend at bedside. She offers no acute concerns. Pt outpt medical records reviewed. Allergies Allergy/AdvReac Type Severity Reaction Status Date / Time aspirin Allergy Intermediate RASH Verified 08/20/19 08:43 Cipro Allergy Intermediate ITCHING Verified 12/19/17 10:33 ALL OVER BODY ciprofloxacin Allergy Intermediate ITCHING Verified 08/20/19 08:43 ALL OVER BODY penicillin G Allergy Intermediate HIVES Verified 08/20/19 08:43 oxycodone Allergy Unknown R HAND Verified 08/20/19 08:43 WENT WEAK, NO MOTOR SKILL cyclobenzaprine AdvReac Mild sedation Verified 08/20/19 08:43 per PCP note prednisone AdvReac Mild LOOPY Verified 08/20/19 08:43 DISORIENTED Jkbhmjw-Flr-Irs Reductase AdvReac Mild MUSCLE Verified 08/20/19 08:43 Inhibitor ACHES clarithromycin AdvReac Unknown FELT OUT Verified 08/20/19 08:43 OF SPACE Home Medications Home Medications Medication Instructions Recorded Confirmed Type acetaminophen 1,000 mg PO BID 08/04/19 08/20/19 History ascorbic acid (vitamin C) 500 mg PO QAM 08/04/19 08/20/19 History aspirin [Aspirin Low Dose] 81 mg PO QAM 08/04/19 08/20/19 History cholecalciferol (vitamin D3) 5,000 unit PO QAM 08/04/19 08/20/19 History [Vitamin D3] cinnamon bark [Cinnamon] 500 mg PO QAM 08/04/19 08/20/19 History conjugated estrogens [Premarin] 0.3125 mg VAGINAL DAILY PRN 08/04/19 08/20/19 History donepezil [Aricept] 5 mg PO QAM 08/04/19 08/20/19 History latanoprost 1 drp OPHTHALMIC (EYE) HS 08/04/19 08/20/19 History lisinopril 5 mg PO QAM 08/04/19 08/20/19 History multivitamin 1 tab PO QAM 08/04/19 08/20/19 History nifedipine [Procardia XL] 60 mg PO QAM 08/04/19 08/20/19 History oxybutynin chloride 5 mg PO HS 08/04/19 08/20/19 History pantoprazole 40 mg PO QAM 08/04/19 08/20/19 History pravastatin 20 mg PO QPM 08/04/19 08/20/19 History pregabalin [Lyrica] 75 mg PO TID 08/04/19 08/20/19 History turmeric 400 mg PO QAM 08/04/19 08/20/19 History Patient History Medical History (Updated 08/20/19 @ 15:17 by Amanda Hicks PA-C) Anemia Diabetes mellitus, type 2 NIDDM GERD (gastroesophageal reflux disease) controlled Glaucoma History of blood transfusion 2017 post-op History of syncope 2017 felt 2/2 acute blood loss post-op/no issues since Hyperlipidemia Hypertension Osteoarthritis Pre-diabetes Presence of pessary Spinal stenosis Transient ischemic attack (TIA) most recent 2006 Urinary urgency Surgical History History of left hip replacement History of left knee replacement History of lumbosacral spine surgery History of right knee joint replacement Hx of left cataract extraction Hx of right cataract extraction Family History Mother , age 100 Old age Father Aneurysm Social History Preferred Language: Mosotho Communication Ability: Effective Beliefs That Will Affect Care: None marital status: / Current Living Situation: Alone Feels Safe at Home: Yes Safety Concerns: Feels Safe At This Time Smoking Status: Never smoker Do You Dip or Chew Tobacco: No ; Second Hand Exposure: No ; Hx Alcohol Use: No Hx Substance Use: No Review of Systems Review of Systems: All systems reviewed & are unremarkable except as noted in HPI & below Physical Exam Physical Exam: Constitutional: WD/WN, , vitals as above, NAD, sitting up in bed, pleasant, conversing easily Head: Normocephalic, Atraumatic Eyes: PERRL, conjunctivae normal, anicteric sclerae ENMT: external ear and nose normal, oropharynx normal Neck: trachea midline, no thyromegaly normal visual inspection Respiratory: normal respiratory effort, lungs clear to auscultation, no wheeze, rales, rhonchi. Normal insp/exp effort, no accessory muscle use Cardiovascular: RRR, soft 1/6 KYLE best RUSB, no edema Vessels: no JVD or carotid bruit Chest: normal inspection of chest Abdomen: normal bowel sounds, soft, nontender, no hepatosplenomegaly Musculoskeletal: no cyanosis or clubbing, Skin: no rashes, warm and dry normal turgor Neurologic: PERRL, EOMI, accommodation nl, no face palsy, no dysarthria CN's II-XI intact bilaterally and moves all extremities Psychiatric: A+Ox3, euthymic affect Lymphatic: no cervical or axillary lymphadenopathy : deferred Results & Data Vital Signs (Past 12 Hours) Vital Signs Temp Pulse Pulse Resp BP Pulse Ox 08/20/19 14:35 36.8 C 68 15 163/83 H 100 08/20/19 14:05 36.7 C 71 14 159/83 H 96 08/20/19 13:50 37.4 C 73 17 154/87 H 99 08/20/19 13:40 70 19 160/88 H 100 08/20/19 13:30 75 19 173/89 H 100 08/20/19 13:20 73 21 160/87 H 100 08/20/19 13:10 82 22 172/96 H 100 08/20/19 13:00 101 H 16 162/94 H 100 08/20/19 12:54 36.3 C L 100 H 14 161/92 H 100 08/20/19 08:47 36.7 C 66 18 122/69 98 Diagnostic Findings CXR: IMPRESSION: No significant change compared to the prior study. No acute process. Tspine xray: IMPRESSION: Fluoroscopic assistance as above. Please see operative report for further details. Medications Administered Sodium Chloride (Nss 1000ml) 1,000 mls @ 100 mls/hr IV .Q10H GEREMIAS Stop: 09/19/19 14:21 Last Admin: 08/20/19 14:33 Dose: 100 mls/hr Documented by: [id number] Discontinued Medications Acetaminophen (Tylenol) 1,000 mg PO PREOP GEREMIAS Stop: 08/20/19 18:00 Last Admin: 08/20/19 08:58 Dose: 1,000 mg Documented by: [id number] Bacitracin (Bacitracin) Confirm Administered Dose 50,000 units .ROUTE .STK-MED ONE Stop: 08/20/19 10:53 Last Admin: 08/20/19 12:34 Dose: 50,000 units Documented by: [id number] Bupivacaine HCl/Epinephrine Bitart (Bupivacaine 0.25%-Epi [id number]) Confirm Administered Dose 30 ml .ROUTE .STK-MED ONE Stop: 08/20/19 10:53 Last Admin: 08/20/19 12:34 Dose: 20 ml Documented by: [id number] Celecoxib (Celebrex) 200 mg PO PREOP GEREMIAS Stop: 08/20/19 18:00 Last Admin: 08/20/19 08:59 Dose: 200 mg Documented by: [id number] Fentanyl Citrate (Fentanyl Citrate) 50 mcg IV Q5M PRN PRN Reason: PACU Use Only-Pain Stop: 08/20/19 15:02 Last Admin: 08/20/19 13:38 Dose: 50 mcg Documented by: [id number] Admin: 08/20/19 13:15 Dose: 50 mcg Documented by: [id number] Gabapentin (Neurontin) 300 mg PO PREOP GEREMIAS Stop: 08/20/19 18:00 Last Admin: 08/20/19 09:00 Dose: 300 mg Documented by: [id number] Lactated Ringer's (Lr) 1,000 mls @ 15 mls/hr IV .Q24H GEREMIAS Stop: 08/21/19 05:59 Last Infusion: 08/20/19 11:05 Dose: 0 mls/hr Documented by: [id number] Admin: 08/20/19 08:58 Dose: 15 mls/hr Documented by: [id number] Clindamycin Phosphate (Cleocin) 600 mg in 54 mls @ 100 mls/hr IV PREOP GEREMIAS Stop: 08/21/19 05:59 Last Infusion: 08/20/19 14:33 Dose: 0 mls/hr Documented by: [id number] Admin: 08/20/19 11:05 Dose: 100 mls/hr Documented by: [id number] ECG Rate (beats per minute): 67 Rhythm: normal sinus Findings: + 1st degree AV block
--- NOTE | 2019-08-20 15:17 | Anesthesiology Progress Note ---
Date of Service August 20, 2019 Anesthesia Post Procedure Vital Signs Vital Signs: Temp Pulse Pulse Resp BP Pulse Ox 08/20/19 14:35 36.8 C 68 15 163/83 H 100 08/20/19 14:05 36.7 C 71 14 159/83 H 96 08/20/19 13:50 37.4 C 73 17 154/87 H 99 08/20/19 13:40 70 19 160/88 H 100 08/20/19 13:30 75 19 173/89 H 100 08/20/19 13:20 73 21 160/87 H 100 08/20/19 13:10 82 22 172/96 H 100 08/20/19 13:00 101 H 16 162/94 H 100 08/20/19 12:54 36.3 C L 100 H 14 161/92 H 100 08/20/19 08:47 36.7 C 66 18 122/69 98 Pain Intensity Back: Pain Intensity: 4 Transfer of Care Handoff Completed per policy Notes Mental Status: alert / awake / arousable and participated in evaluation Patient Amnestic to Procedure: Yes Nausea / Vomiting: adequately controlled Pain: adequately controlled Airway Patency, RR, SpO2: stable & adequate BP & HR: stable & adequate Hydration State: stable & adequate Anesthetic Complications: no major complications apparent and Pt Satisfied with anesthetic care
[2019-08-20] MEDS: PREGABALIN 75 MG CAP PO SCH (17:05)
[2019-08-20] MEDS: CLINDAMYCIN 600 MG in DEXTROSE 5% 50 ML IV SCH (19:58)
[2019-08-20] MEDS: TRAMADOL HCL 50 MG TABLET PO PRN (21:33)
[2019-08-20] MEDS: OXYBUTYNIN CHLORIDE 5 MG TAB PO SCH (21:35)
[2019-08-20] MEDS: PRAVASTATIN SOD 20 MG TAB PO SCH (21:35)
[2019-08-20] MEDS: LATANOPROST 0.005% OP SOLN 2.5 ML BTL OP SCH (21:35)
[2019-08-20] MEDS: DOCUSATE SODIUM/SENNA 50/8.6MG TAB PO SCH (21:35)
[2019-08-21] MEDS: PREGABALIN 75 MG CAP PO SCH ×4 (00:16→23:28)
[2019-08-21] MEDS: SODIUM CHLORIDE 0.9% 1000ML 1,000 ML IV SCH (00:16)
[2019-08-21] MEDS: HYDROCODONE/ACETAMOPHEN 5/325MG TAB PO PRN ×3 (00:16→19:30)
[2019-08-21] MEDS: CLINDAMYCIN 600 MG in DEXTROSE 5% 50 ML IV SCH (03:16)
[2019-08-21 05:47] LABS: Basophils # (auto) 0.01 K/uL (0-0.2); Basophils % (auto) 0.1 %; Eosinophils # (auto) 0.02 K/uL (0-0.5); Eosinophils % (auto) 0.3 %; Hematocrit (blood only) 32.1 % (37-47); Hemoglobin 10.5 g/dL (12.0-16.0); Immature Granulocytes # (auto) 0.01 K/uL (0.00-0.02); Immature Granulocytes % (auto) 0.1 %; Lymphocytes # (auto) 1.49 K/uL (1.2-3.4); Lymphocytes % (auto) 22.1 %; Mean Corpuscular Hemoglobin 31.7 pg (25-34); Mean Corpuscular Hgb Conc 32.7 g/dL (32-36); Monocytes # (auto) 0.75 K/uL (0.11-0.59); Monocytes % (auto) 11.1 %; Neutrophils # (auto) 4.45 K/uL (1.4-6.5); Neutrophils % (auto) 66.3 %; Platelet Count 174 K/uL (130-400); RDW Standard Deviation 45.7 fL (36.4-46.3); Red Blood Count 3.31 M/uL (4.2-5.4); White Blood Count 6.73 K/uL (4.8-10.8)
[2019-08-21] MEDS: POLYETHYLENE (MIRALAX) 17 GM PACK PO SCH ×3 (06:09→17:19)
[2019-08-21 06:13] LABS: BUN Creatinine Ratio 13.8 (10-20); Calcium 8.5 mg/dl (8.5-10.1); Creatinine Clr Calc Pharmacy 64.3 ml/min; Est GFR (African American) 97.7; Est GFR (Non-African American) 84.3; Potassium 3.7 mmol/L (3.5-5.1)
--- NOTE | 2019-08-21 08:15 | Orthopedic Progress Note ---
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 Present on Admission?: Yes Subjective Patient's back pain is controlled leg symptoms are improved. Physical Exam 2 Physical Exam: Patient is stable bed is good strength testing appears comfortable. Results & Data Vital Signs (Past 12 Hours) Vital Signs Temp Pulse Resp BP Pulse Ox 08/21/19 07:56 36.4 C L 71 18 119/67 100 08/21/19 03:33 36.7 C 72 16 143/73 H 95 08/21/19 00:05 36.7 C 71 16 156/78 H 98
--- NOTE | 2019-08-21 08:36 | Hospitalist Progress Note ---
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 Mireles EBPenelope 100ml tolerated procedure well Resume Post Op Care per Surgery Protocol Incentive Spirometry 10x per Hour Resume Relative Home Meds Where Appropriate PT/OT with appropriate fall precautions Transition from IV to PO Pain control DVT Prophylaxis Per Surgery Protocol Monitor Daily Labs (2) Anemia: Preop H&H 11.7 and 36.0 Monitor CBC (3) HTN (hypertension): Blood pressure elevated postoperatively On lisinopril and nifedipine Add as needed hydralazine for SBP > 180 (4) Dyslipidemia: Continue pravastatin (5) GERD (gastroesophageal reflux disease): Continue PPI (6) Pre-diabetes: Preop A1c 5.7 Previously had been on metformin, but was discontinued 2 years ago Monitor fasting glucose (7) DVT prophylaxis: SCD/TEDS, ASA Disposition: per [facility], [place] Friday Follow up: PCP Dr. Boston upon discharge Labs checked ROS-No Headache, No Visual Changes, No Nausea, No Vomiting, No Fever, No Chills, No Neck Pain or Stiffness, No Chest Pain, No Palpitations, No SOB, No WADDELL, No Cough, No Sputum, No Wheezing, No Abdominal Pain, No Diarrhea, No Hematemesis, No Hemoptysis, No Unexpected Weight Loss, No Flank pain, No Melena, No Hematochezia, No Frequency, No Urgency, No Burning, No Hematuria, No Rashes, No Diaphoresis. Appetite is Normal, Sore back, Hands feel better Physical Exam Gen-AAO x 3, NAD, Afebrile Head-NCAT, EOMI, PERRLA, Anicteric Sclera, No Posterior Pharyngeal Erythema Neck-Supple, No JVD, No Thyromegaly, No Masses, No LAD, No Bruits Lungs-Clear to Auscultation Bilaterally, No Rales, No Rhonchi, No Wheezing, No Crepitus Chest-No S4, +S1, +S2, No S3, No Murmurs, No Rubs, No Gallops, No Ectopy Abdomen-Soft, Bowel Sounds Present, Non Tender, Non Distended, No Hepatomegaly, No Splenomegaly, No Palpable Masses, No Rebound, No Rigidity, No Guarding Musculoskeletal-Sore Back Extremities-No Cyanosis, No Clubbing, No Edema Nuero-Cranial Nerves II-XII grossly intact, Motor WNL, DTRs WNL, Strength WNL, Non Focal Psych-Normal Mood Results & Data Vital Signs (Past 12 Hours) Vital Signs Temp Pulse Resp BP Pulse Ox 08/21/19 07:56 36.4 C L 71 18 119/67 100 08/21/19 03:33 36.7 C 72 16 143/73 H 95 08/21/19 00:05 36.7 C 71 16 156/78 H 98
[2019-08-21] MEDS: PANTOprazole 40 MG TAB PO SCH (09:22)
[2019-08-21] MEDS: ASPIRIN 81 MG ECTAB PO SCH (09:22)
[2019-08-21] MEDS: DONEPEZIL HCL 5 MG TAB PO SCH (09:23)
[2019-08-21] MEDS: MULTIVITAMIN TAB PO SCH (09:23)
[2019-08-21] MEDS: NIFEdipine EXTENDED REL 30 MG TABCR PO SCH (09:23)
[2019-08-21] MEDS: ASCORBIC ACID 500 MG TAB PO SCH (09:24)
[2019-08-21] MEDS: CHOLECALCIFEROL 1,000 UNITS TAB PO SCH (09:24)
[2019-08-21] MEDS: LISINOPRIL 5 MG TAB PO SCH (09:25)
[2019-08-21] MEDS: PRAVASTATIN SOD 20 MG TAB PO SCH (21:15)
[2019-08-21] MEDS: OXYBUTYNIN CHLORIDE 5 MG TAB PO SCH (21:15)
[2019-08-21] MEDS: TRAMADOL HCL 50 MG TABLET PO PRN (21:15)
[2019-08-21] MEDS: LATANOPROST 0.005% OP SOLN 2.5 ML BTL OP SCH (21:16)
[2019-08-21] MEDS: DOCUSATE SODIUM/SENNA 50/8.6MG TAB PO SCH (21:16)
[2019-08-22] MEDS: POLYETHYLENE (MIRALAX) 17 GM PACK PO SCH ×4 (00:49→17:57)
[2019-08-22 05:37] LABS: Hematocrit (blood only) 31.8 % (37-47); Hemoglobin 10.4 g/dL (12.0-16.0); Mean Corpuscular Hemoglobin 31.5 pg (25-34); Mean Corpuscular Hgb Conc 32.7 g/dL (32-36); Mean Corpuscular Volume 96.4 fL (80-100); Mean Platelet Volume 9.8 fL (7.4-10.4); Platelet Count 172 K/uL (130-400); RDW Coefficient of Variation 13.2 % (11.5-14.5); RDW Standard Deviation 46.4 fL (36.4-46.3); White Blood Count 8.07 K/uL (4.8-10.8)
[2019-08-22 06:00] LABS: BUN Creatinine Ratio 16.8 (10-20); Calcium 8.6 mg/dl (8.5-10.1); Creatinine Clr Calc Pharmacy 50.8 ml/min; Est GFR (African American) 79.5; Est GFR (Non-African American) 68.6; Potassium 4.1 mmol/L (3.5-5.1)
--- NOTE | 2019-08-22 07:56 | Hospitalist Progress Note ---
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 Aline BRYANT 100ml tolerated procedure well Resume Post Op Care per Surgery Protocol Incentive Spirometry 10x per Hour Resume Relative Home Meds Where Appropriate PT/OT with appropriate fall precautions Transition to PO Pain control DVT Prophylaxis Per Surgery Protocol Monitor Daily Labs Home v ARF Friday (2) Anemia: Preop H&H 11.7 and 36.0 Monitor CBC (3) HTN (hypertension): Blood pressure great (4) Dyslipidemia: Continue pravastatin (5) GERD (gastroesophageal reflux disease): Continue PPI (6) Pre-diabetes: Preop A1c 5.7 Previously had been on metformin, but was discontinued 2 years ago Monitor fasting glucose (7) DVT prophylaxis: SCD/TEDS, ASA Disposition: per Ortho, DC Friday Home v SNF/ARF Follow up: PCP Dr. Boston upon discharge Labs checked ROS-No Headache, No Visual Changes, No Nausea, No Vomiting, No Fever, No Chills, No Neck Pain or Stiffness, No Chest Pain, No Palpitations, No SOB, No WADDELL, No Cough, No Sputum, No Wheezing, No Abdominal Pain, No Diarrhea, No Hematemesis, No Hemoptysis, No Unexpected Weight Loss, No Flank pain, No Melena, No Hematochezia, No Frequency, No Urgency, No Burning, No Hematuria, No Rashes, No Diaphoresis. Appetite is Normal, Sore back, Hands feel better Physical Exam Gen-AAO x 3, NAD, Afebrile Head-NCAT, EOMI, PERRLA, Anicteric Sclera, No Posterior Pharyngeal Erythema Neck-Supple, No JVD, No Thyromegaly, No Masses, No LAD, No Bruits Lungs-Clear to Auscultation Bilaterally, No Rales, No Rhonchi, No Wheezing, No Crepitus Chest-No S4, +S1, +S2, No S3, No Murmurs, No Rubs, No Gallops, No Ectopy Abdomen-Soft, Bowel Sounds Present, Non Tender, Non Distended, No Hepatomegaly, No Splenomegaly, No Palpable Masses, No Rebound, No Rigidity, No Guarding Musculoskeletal-Sore Back Extremities-No Cyanosis, No Clubbing, No Edema Nuero-Cranial Nerves II-XII grossly intact, Motor WNL, DTRs WNL, Strength WNL, Non Focal Psych-Normal Mood Results & Data Vital Signs (Past 12 Hours) Vital Signs Temp Pulse Resp BP BP Pulse Ox 08/22/19 07:47 37.0 C 74 16 108/65 96 08/21/19 23:22 37.5 C 75 16 104/61 93
[2019-08-22] MEDS: CHOLECALCIFEROL 1,000 UNITS TAB PO SCH (08:35)
[2019-08-22] MEDS: MULTIVITAMIN TAB PO SCH (08:36)
[2019-08-22] MEDS: ASPIRIN 81 MG ECTAB PO SCH (08:36)
[2019-08-22] MEDS: DONEPEZIL HCL 5 MG TAB PO SCH (08:36)
[2019-08-22] MEDS: NIFEdipine EXTENDED REL 30 MG TABCR PO SCH (08:36)
[2019-08-22] MEDS: ASCORBIC ACID 500 MG TAB PO SCH (08:37)
[2019-08-22] MEDS: LISINOPRIL 5 MG TAB PO SCH (08:37)
[2019-08-22] MEDS: PANTOprazole 40 MG TAB PO SCH (08:37)
[2019-08-22] MEDS: PREGABALIN 75 MG CAP PO SCH ×3 (08:39→21:16)
--- NOTE | 2019-08-22 08:44 | Orthopedic Progress Note ---
Date of Service August 22, 2019 Assessment & Plan (1) Lumbar stenosis with neurogenic claudication: Patient is doing well postop day #2. We will continue with GI DVT prophylaxis as well as pain control. We will continue mobilization with physical therapy. She is likely to be able to be discharged home tomorrow. Subjective Patient seen bedside postop day #2 status post thoracic decompression fusion. She is doing well at this point. Her legs are feeling better. She has been up and walking with physical therapy. She is tolerating oral intake with no difficulties. Her pain is well controlled. She denies any other numbness, tingling, or paresthesias. Physical Exam Physical Exam: On exam she is alert and oriented. Her dressing is clean dry and intact her JEFFREY drains in place and is holding suction. Her calves are supple nontender her abdomen soft nontender strength and sensation both intact. Results & Data Vital Signs (Past 12 Hours) Vital Signs Temp Pulse Pulse Resp BP BP Pulse Ox 08/22/19 08:32 76 109/69 08/22/19 07:47 37.0 C 74 16 108/65 96 08/21/19 23:22 37.5 C 75 16 104/61 93
[2019-08-22] MEDS: HYDROCODONE/ACETAMOPHEN 5/325MG TAB PO PRN ×3 (11:41→23:36)
[2019-08-22] MEDS: PRAVASTATIN SOD 20 MG TAB PO SCH (21:11)
[2019-08-22] MEDS: OXYBUTYNIN CHLORIDE 5 MG TAB PO SCH (21:11)
[2019-08-22] MEDS: LATANOPROST 0.005% OP SOLN 2.5 ML BTL OP SCH (21:12)
[2019-08-22] MEDS: DOCUSATE SODIUM/SENNA 50/8.6MG TAB PO SCH (21:12)
[2019-08-22] MEDS ORDERED: Nursing to Pharmacy Communication ONE (23:42)
[2019-08-23] MEDS: TRAMADOL HCL 50 MG TABLET PO PRN ×2 (04:20→10:36)
[2019-08-23 05:33] LABS: Hematocrit (blood only) 31.3 % (37-47); Hemoglobin 10.3 g/dL (12.0-16.0); Mean Corpuscular Hemoglobin 31.9 pg (25-34); Mean Corpuscular Hgb Conc 32.9 g/dL (32-36); Mean Corpuscular Volume 96.9 fL (80-100); Mean Platelet Volume 10.2 fL (7.4-10.4); Platelet Count 182 K/uL (130-400); RDW Standard Deviation 46.2 fL (36.4-46.3); Red Blood Count 3.23 M/uL (4.2-5.4)
[2019-08-23 05:57] LABS: BUN Creatinine Ratio 16.2 (10-20); Calcium 8.5 mg/dl (8.5-10.1); Creatinine Clr Calc Pharmacy 45.2 ml/min; Est GFR (African American) 69.1; Est GFR (Non-African American) 59.6; Potassium 4.2 mmol/L (3.5-5.1)
--- NOTE | 2019-08-23 06:56 | Hospitalist Progress Note ---
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 Mireles EBL 100ml tolerated procedure well DC home v SNF ok from IM standpoint (2) Anemia: Stable at 10.4 (3) HTN (hypertension): Blood pressure great (4) Dyslipidemia: Continue pravastatin (5) GERD (gastroesophageal reflux disease): Continue PPI (6) Pre-diabetes: Preop A1c 5.7 Previously had been on metformin, but was discontinued 2 years ago Monitor fasting glucose (7) DVT prophylaxis: Disposition: DC today from IM standpoint Follow up: PCP Dr. Boston upon discharge, Dr Mireles Ortho/Spine Labs checked ROS-No Headache, No Visual Changes, No Nausea, No Vomiting, No Fever, No Chills, No Neck Pain or Stiffness, No Chest Pain, No Palpitations, No SOB, No WADDELL, No Cough, No Sputum, No Wheezing, No Abdominal Pain, No Diarrhea, No Hematemesis, No Hemoptysis, No Unexpected Weight Loss, No Flank pain, No Melena, No Hematochezia, No Frequency, No Urgency, No Burning, No Hematuria, No Rashes, No Diaphoresis. Appetite is Normal, Sore back, Hands feel better, c/o Itching this am Physical Exam Gen-AAO x 3, NAD, Afebrile Head-NCAT, EOMI, PERRLA, Anicteric Sclera, No Posterior Pharyngeal Erythema Neck-Supple, No JVD, No Thyromegaly, No Masses, No LAD, No Bruits Lungs-Clear to Auscultation Bilaterally, No Rales, No Rhonchi, No Wheezing, No Crepitus Chest-No S4, +S1, +S2, No S3, No Murmurs, No Rubs, No Gallops, No Ectopy Abdomen-Soft, Bowel Sounds Present, Non Tender, Non Distended, No Hepatomegaly, No Splenomegaly, No Palpable Masses, No Rebound, No Rigidity, No Guarding Musculoskeletal-Sore Back Extremities-No Cyanosis, No Clubbing, No Edema Nuero-Cranial Nerves II-XII grossly intact, Motor WNL, DTRs WNL, Strength WNL, Non Focal Psych-Normal Mood Results & Data Vital Signs (Past 12 Hours) Vital Signs Temp Pulse Resp BP Pulse Ox 08/23/19 06:30 37.0 C 76 18 130/74 97 08/22/19 23:18 36.9 C 76 18 123/70 94
[2019-08-23] MEDS: PANTOprazole 40 MG TAB PO SCH (07:42)
[2019-08-23] MEDS: MULTIVITAMIN TAB PO SCH (07:42)
[2019-08-23] MEDS: LISINOPRIL 5 MG TAB PO SCH (07:42)
[2019-08-23] MEDS: ASCORBIC ACID 500 MG TAB PO SCH (07:42)
[2019-08-23] MEDS: ASPIRIN 81 MG ECTAB PO SCH (07:42)
[2019-08-23] MEDS: DONEPEZIL HCL 5 MG TAB PO SCH (07:43)
[2019-08-23] MEDS: NIFEdipine EXTENDED REL 30 MG TABCR PO SCH (07:43)
[2019-08-23] MEDS: CHOLECALCIFEROL 1,000 UNITS TAB PO SCH (07:43)
[2019-08-23] MEDS: PREGABALIN 75 MG CAP PO SCH ×2 (07:45→13:34)
--- NOTE | 2019-08-23 11:29 | Discharge Summary ---
Date of Service August 23, 2019 Principal Diagnosis Thoracic spinal stenosis with myelopathy Discharge Data Allergies Allergy/AdvReac Type Severity Reaction Status Date / Time aspirin Allergy Intermediate RASH Verified 08/20/19 08:43 Cipro Allergy Intermediate ITCHING Verified 12/19/17 10:33 ALL OVER BODY ciprofloxacin Allergy Intermediate ITCHING Verified 08/20/19 08:43 ALL OVER BODY penicillin G Allergy Intermediate HIVES Verified 08/20/19 08:43 oxycodone Allergy Unknown R HAND Verified 08/20/19 08:43 WENT WEAK, NO MOTOR SKILL cyclobenzaprine AdvReac Mild sedation Verified 08/20/19 08:43 per PCP note prednisone AdvReac Mild LOOPY Verified 08/20/19 08:43 DISORIENTED Dvpvnax-Agz-Ubl Reductase AdvReac Mild MUSCLE Verified 08/20/19 08:43 Inhibitor ACHES clarithromycin AdvReac Unknown FELT OUT Verified 08/20/19 08:43 OF SPACE Consultations 08/20/19 14:22 Consult Case Management - Discharge Planning Routine Consult Hospitalist Routine Procedures Performed Operation Date: 08/20/19 10:05 Actual Procedures p T11-T12 Decompression and Fusion with Spinal Cord Monitoring, Application of BMP(Not Applicable) - Jeremy Mireles DO Ordered Studies 08/20/19 10:05 FL fluoroscopy <1hr Routine FL thoracic spine 2V Routine Hospital Course (1) 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 Postop day 1 leg symptoms were improved. She is ambulating well. Progressed to postop day #2. JEFFREY drain decreasing appropriately. Subsequently discharged home on postop day #3. Postop day she is good strength testing sitting up without difficulty pain well controlled subsequently discharged home. Discharge orders instructions from the chart for further review. Total Time Total Time Spent Total Time Spent (In Minutes): 20 minutes Discharge Plan Discharge Items Patient Disposition: Home - Self-Care Reason For Visit: Spinal Stenosis, Thoracic Region Discharge Diagnosis: Thoracic spinal stenosis with myelopathy Activity: As commented below Non-emergency contact: Primary Care Provider Call non-emergency contact if: you have any medication questions Follow-up/Referrals: Neto Boston MD [Primary Care Provider] - Diet: Regular Addtl Attending Provider Instructions: ACTIVITY RECOMMENDATIONS: SELF CARE INSTRUCTIONS AFTER THORACIC/LUMBAR FUSIONS 1. You may walk to your tolerance. It is good exercise for your legs and back. Expect some back and intermittent leg aches and pains. 2. You may perform "counter-top" level activities (make a sandwich, valeriano with a project, etc.). 3. No bending or lifting of more than 10 pounds or back twisting of any nature (roll like a log when turning in bed). 4. You may ride in a car for 20-30 minutes at a time. No driving until after your first visit with your doctor. 5. Frequent changes of position and restricting sitting to 30 minutes at a time will help limit the amount of back spasms and stiffness you may experience. 6. You may discontinue the use of ambulatory aids (cane, crutches, etc.) once your strength and confidence allow. 7. You may stock parts inspector the shower and let water strike your incision when you arrive home at least once daily. Do not take a tub bath, sit in a hot tub or go into a swimming pool until after your first recheck in the office. SPECIAL CARE INSTRUCTIONS: VERY IMPORTANT TO READ AND REVIEW A. Your surgical incision has been closed with a cosmetic suture under the skin that will dissolve in about 6 weeks. In 14 days, you can use a pair of clean scissors and cut the suture that is left outside of the skin at the ends of your incision. 1. The small skin tapes can be removed 7 days after surgery if they have not fallen off by that point. 2. You may keep the wound open to air as much as possible to promote healing after post-op day number 5 unless told otherwise by your doctor. 3. If you think the wound looks like it is becoming infected (redness or worsening drainage) and/or you are experiencing fever, chill or worsening back pain and muscle spasms, contact the office so that we may evaluate you as soon as possible. B. Complications are uncommon, but please contact us if you have any signs or symptoms of: 1. wound infection (fever higher than 102.5 degrees F, redness, separation of wound, drainage, or increasing pain from the incision) 2. blood clots in legs (pain, swelling, redness and warmth in legs) 3. urinary tract infection (fever higher than 102.5 degrees F, burning upon urination or increased frequency of urination) 4. nerve problems (inability to walk on your toes or heels, numbness, loss of bowel or bladder control) 5. any other symptoms that concern you C. Please call the office at if you have any concerns or q uestions about your operation or recovery. D. No smoking! Smoking drastically decreases the chance of a solid fusion. E. Do not take any anti-inflammatory medications (Indocin, Advil, Motrin, Aspirin, Naprosyn, etc.) as these may inhibit the chance of a solid fusion. Tylenol is okay to take for pain. MANAGING PAIN AFTER SPINAL SURGERY 1. Narcotic medication is intended for short-term use and will be provided for surgical pain. Surgical pain usually lasts for a period of 4-6 weeks. Narcotic medication includes Percocet, Vicodin, Darvocet, Tylenol #3 or Lortab. 2. Longer-term pain is more appropriately treated with non-narcotic medication such as Tylenol ES. 3. Muscle spasm is not appropriately treated with narcotics. Muscle relaxers such as Soma, Flexeril or Skelaxin can be used along with Tylenol ES. 4. Remember that we all live with some "aches and pains". This is not unusual or uncommon after an injury or as we get older. a. Back pain is expected and may include muscle spasms for 4 to 6 weeks after surgery. The pain should gradually improve. If the pain worsens for no apparent reason, please contact the office. b. Intermittent leg pain may also be experienced and should not be concerned about unless it worsens for no apparent reason. If so, please contact the office. 5. We will provide appropriate medication within the normal guidelines of their prescribed use. We will also be very cautious and aware of potential abuse and extended duration of patients' medication needs. a. Pain medications are for your comfort and to assist with sleep and rest so that the tissue can heal. They are not provided in order to return to normal activity and should not be used through the day. To do so or worsening pain at night can result from ongoing tissue damage and development of tolerance to the prescribed medicine. 6. Please allow 2-3 days to process refills. Prescriptions will not be mailed but must be picked up at the office. FOLLOW UP VISIT: Keep your scheduled follow-up appointment. Any questions, please call the office at . Pending Studies at Discharge: No Stand-Alone Forms: [facility], Smoking Cessation Medications and DC Order Prescriptions: New hydrocodone-acetaminophen 5-325 mg tablet See Rx Instructions .ROUTE .COMPLEX PRN (Reason: pain) Qty: 30 RF: 0 tramadol 50 mg tablet 50 mg PO Q6H PRN (Reason: pain, moderate) Qty: 30 RF: 0 Continued donepezil [Aricept] 5 mg Tablet 5 mg PO QAM RF: 0 acetaminophen 500 mg Tablet 1,000 mg PO BID RF: 0 pravastatin 20 mg Tablet 20 mg PO QPM RF: 0 cinnamon bark [Cinnamon] 500 mg Capsule 500 mg PO QAM RF: 0 cholecalciferol (vitamin D3) [Vitamin D3] 5,000 unit Tablet 5,000 unit PO QAM RF: 0 turmeric 400 mg Capsule 400 mg PO QAM RF: 0 multivitamin Tablet 1 tab PO QAM RF: 0 latanoprost 0.005 % Drops 1 drp ophthalmic (eye) HS RF: 0 aspirin [Aspirin Low Dose] 81 mg Tablet,Delayed Release (Dr/Ec) 81 mg PO QAM RF: 0 ascorbic acid (vitamin C) 500 mg Tablet 500 mg PO QAM RF: 0 nifedipine [Procardia XL] 60 mg Tablet Extended Release 24hr 60 mg PO QAM RF: 0 pantoprazole 40 mg Tablet,Delayed Release (Dr/Ec) 40 mg PO QAM RF: 0 Premarin 0.625 mg/gram Cream 0.3125 mg VAGINAL DAILY PRN (Reason: VAGINAL DRYNESS) RF: 0 lisinopril 5 mg Tablet 5 mg PO QAM RF: 0 oxybutynin chloride 5 mg Tablet 5 mg PO HS RF: 0 pregabalin [Lyrica] 75 mg Capsule 75 mg PO TID RF: 0 Discharge Orders: Discharge Order (Routine); Ordered 08/23/19 Ordered By: Jeremy Feliciano/Other Patient Handouts: Diabetes Type 2 Coping, Diabetes Healthy Meals Admission Data Admit Date/Time: 08/20/19 13:20 Attending Provider: Jeremy Mireles Admit Provider: Jeremy Mireles Primary Care Provider: Neto Boston Other Providers: [facility],Home [facility] ; Prabhjot Torres Other Interventions: Discharge Summary Assessment (RN) Last Done: 08/23/19 11:26
== END 2019-08-23 14:02 | disposition home health service (06) | DRG 460 ==
LOC: ASU 07:56 → 3E 13:20

== ENCOUNTER 2022-01-23 05:14 | Observation (INO) ==
--- NOTE | 2022-01-10 16:29 | PAT Medication Instructions ---
Medication Instructions Date of Service January 10, 2022 Home Medications Medication Instructions Recorded tramadol 50 mg tablet 50 mg PO Q6H PRN #30 tab 08/21/19 acetaminophen 500 mg tablet 1,000 mg PO BID ascorbic acid (vitamin C) 500 mg tablet 500 mg PO QAM aspirin 81 mg tablet,delayed release (Aspirin Low Dose) 81 mg PO QAM cholecalciferol (vitamin D3) 125 mcg (5,000 unit) tablet (Vitamin D3) 5,000 unit PO QAM cinnamon bark 500 mg capsule (Cinnamon) 500 mg PO QAM conjugated estrogens 0.625 mg/gram vaginal cream (Premarin) 0.3125 mg VAGINAL 2XWK donepezil 5 mg tablet (Aricept) 10 mg PO QAM latanoprost 0.005 % eye drops 1 drp OPHTHALMIC (EYE) HS multivitamin 1 tab PO QAM 08/04/19 [History Confirmed 01/10/22] nifedipine 60 mg tablet,extended release 24 hr (Procardia XL) 60 mg PO QAM oxybutynin chloride 5 mg tablet 5 mg PO HS pravastatin 20 mg tablet 20 mg PO HS pregabalin 75 mg capsule (Lyrica) 100 mg PO TID tramadol 50 mg tablet 50 mg PO Q6H PRN metoprolol succinate 25 mg tablet,extended release 24 hr 12.5 mg PO BID STOP taking 24 hours before surgery conjugated estrogens 0.625 mg/gram vaginal cream (Premarin) 0.3125 mg VAGINAL 2XWK DO NOT take the morning of surgery ascorbic acid (vitamin C) 500 mg tablet 500 mg PO QAM cholecalciferol (vitamin D3) 125 mcg (5,000 unit) tablet (Vitamin D3) 5,000 unit PO QAM cinnamon bark 500 mg capsule (Cinnamon) 500 mg PO QAM Take morning of surgery With a small sip of water, OTHERWISE NOTHING TO EAT OR DRINK AFTER MIDNIGHT: acetaminophen 500 mg tablet 1,000 mg PO BID(okay to take up to 4 hours prior to surgery if needed) aspirin 81 mg tablet,delayed release (Aspirin Low Dose) 81 mg PO QAM (unless surgeon advised otherwise) donepezil 5 mg tablet (Aricept) 10 mg PO QAM latanoprost 0.005 % eye drops 1 drp OPHTHALMIC (EYE) HS nifedipine 60 mg tablet,extended release 24 hr (Procardia XL) 60 mg PO QAM pregabalin 75 mg capsule (Lyrica) 100 mg PO TID tramadol 50 mg tablet 50 mg PO Q6H PRN(okay to take up to 4 hours prior to surgery if needed) metoprolol succinate 25 mg tablet,extended release 24 hr 12.5 mg PO BID Take evening before surgery acetaminophen 500 mg tablet 1,000 mg PO BID oxybutynin chloride 5 mg tablet 5 mg PO HS pravastatin 20 mg tablet 20 mg PO HS pregabalin 75 mg capsule (Lyrica) 100 mg PO TID tramadol 50 mg tablet 50 mg PO Q6H PRN(if needed) metoprolol succinate 25 mg tablet,extended release 24 hr 12.5 mg PO BID Other Notes If you have any questions please call us at [phone] or [phone] or [phone] or [phone]
--- NOTE | 2022-01-14 10:55 | Anesthesiology Consultation ---
Date of Service January 14, 2022 Assessment & Plan (1) Encounter for pre-operative examination: - check BSG am DOS. - awaiting PCP response to optimization note for clarification on diabetic history. - PCP pre-op evaluation 01/09/2022 [facility]: "... Anemia in stage 3 chronic kidney disease (HCC), CKD stage 3, Hypertensive kidney disease with CKD stage III (HCC), immunity disorder, Neutropenia (HCC), PVD (peripheral vascular disease) (HCC), and vascular disease...preoperative evaluation for right total hip replacement set for 01/23/22...cardiovascular history that includes dyslipidemia, hypertension, mitral regurgitation, PACs, PCD. TIA. Family cardiovascular history includes is unremarkable. Follows with cardiology Dr. Shaikh, last seen 11/27/21 and was stable at that visit. Had normal stress test 10/26/21. She is able to complete 4 METS of activity without chest pain or SOB...revised cardiac index score of One Risk Factor- 1.0% (95% CI: 0.5-1.4) for the surgery scheduled...patient has been medically optimized for anesthesia. Continue to follow with cardiology as scheduled..." - cardiology office visit 11/27/2021 [facility]: "...frequent PACs. Since her metoprolol was increased by actually she states she has been feeling better...lightheaded spells and palpitations have significantly improved and overall she feels well...denies any chest pain, shortness of breath or lightheadedness...has been taking her medications as directed without issue...22.8% burden per zio 09/11/2021, symptomatic. WADDELL: Negative nuclear stress 10/26/2021. Moderate MR and TR. PAD...no further cardiac testing or intervention is necessary at this time..." - COVID screening: Per assessment on 01/14/2022: Travel screen negative, no known COVID-19 positive contacts or current COVID-19 related symptoms in past 2 weeks. Patient vaccinated. Surgeon arranging preop COVID testing, scheduled 01/21/2022. Awaiting results. Chart Review Chart Review: Pending: Refer to Additional Notes / Consult section and Patient seen in Pre Admission Testing Teaching & Discussion Pre-Anesthesia Teaching/Discussion Notes: Instructed NPO after midnight before surgery, except medications with 15 cc of water. Medication instructions provided according to the PAT guidelines. History Surgery Operation Date: 01/23/22 10:50 Proposed Procedures p Right Total Hip Arthroplasty with Dual Mobility Cup - Devan Hays MD Height/Weight Height: 4 ft 9 in Weight: 75.1 kg Allergies Allergy/AdvReac Type Severity Reaction Status Date / Time aspirin Allergy Intermediate RASH-regular Verified 01/14/22 11:18 aspirin in large doses ciprofloxacin Allergy Intermediate ITCHING Verified 01/10/22 10:53 ALL OVER BODY penicillin G Allergy Intermediate HIVES Verified 01/10/22 10:53 oxycodone Allergy Unknown R HAND Verified 01/10/22 10:53 WENT WEAK, NO MOTOR SKILL cyclobenzaprine AdvReac Mild sedation Verified 01/10/22 10:53 per PCP note prednisone AdvReac Mild LOOPY Verified 01/10/22 10:53 DISORIENTED Siworvb-LND-SdJ Reductase AdvReac Mild MUSCLE Verified 01/10/22 10:53 Inhibitor ACHES [Bnfaqmd-Zak-Jjm Reductase Inhibitor] clarithromycin AdvReac Unknown FELT OUT Verified 01/10/22 10:53 OF SPACE Medications Home Medications Medication Instructions Recorded Confirmed Last Taken acetaminophen 500 mg tablet 1,000 mg PO BID 08/04/19 01/10/22 08/19/19 22:00 ascorbic acid (vitamin C) 500 mg 500 mg PO QAM 08/04/19 01/10/22 08/06/19 tablet aspirin 81 mg tablet,delayed 81 mg PO QAM 08/04/19 01/10/22 08/19/19 08:30 release (Aspirin Low Dose) cholecalciferol (vitamin D3) 125 5,000 unit PO QAM 08/04/19 01/10/22 08/06/19 mcg (5,000 unit) tablet (Vitamin D3) cinnamon bark 500 mg capsule 500 mg PO QAM 08/04/19 01/10/22 08/06/19 (Cinnamon) conjugated estrogens 0.625 mg/gram 0.3125 mg VAGINAL 2XWK 08/04/19 01/10/22 07/30/19 vaginal cream (Premarin) donepezil 5 mg tablet (Aricept) 10 mg PO QAM 08/04/19 01/10/22 08/20/19 06:00 latanoprost 0.005 % eye drops 1 drp OPHTHALMIC (EYE) HS 08/04/19 01/10/22 08/19/19 22:00 multivitamin 1 tab PO QAM 08/04/19 01/10/22 08/18/19 08:00 nifedipine 60 mg tablet,extended 60 mg PO QAM 08/04/19 01/10/22 08/20/19 06:00 release 24 hr (Procardia XL) oxybutynin chloride 5 mg tablet 5 mg PO HS 08/04/19 01/10/22 08/19/19 22:00 pravastatin 20 mg tablet 20 mg PO HS 08/04/19 01/10/22 08/18/19 18:00 pregabalin 75 mg capsule (Lyrica) 100 mg PO TID 08/04/19 01/10/22 08/20/19 06:00 tramadol 50 mg tablet 50 mg PO Q6H PRN #30 tab 08/21/19 01/10/22 Unknown metoprolol succinate 25 mg 12.5 mg PO BID 01/10/22 01/10/22 Unknown tablet,extended release 24 hr Past Medical History Medical History (Updated 01/14/22 @ 16:09 by uJlia Barone PA-C) Anemia Chronic kidney disease Depression Pt denies GERD (gastroesophageal reflux disease) controlled, stable per pt Glaucoma Hiatal hernia High pulmonary arterial pressure "mild to moderately increased PASP, 45-50 mmHg" 09/2021 echo History of blood transfusion 2018 post-op History of syncope 2018 felt 2/2 acute blood loss post-op/no issues since Hyperlipidemia Hypertension controlled, stable per pt Mitral regurgitation moderate Prediabetes per 2020 PCP [facility] records, listed as type 2 DM previously in chart 2019, A1c 5.7% 02/2021 Presence of pessary PT CONFIRMED-CHANGED Q 6 MONTHS Spinal stenosis Subclinical hypothyroidism Transient ischemic attack (TIA) most recent 2006 Tricuspid regurgitation moderate Urinary urgency Patient denies h/o seizures, heart attack, heart failure, or blood clots. Exercise / Class Metabolic Activity III < 4 Walking/Shop/Light housework (denies CP or SOB, uses cane to ambulate) Past Family History Family History Mother , age 100 Old age Father Aneurysm Past Surgical History Surgical History (Updated 01/14/22 @ 10:50 by Julia Barone PA-C) History of esophagogastroduodenoscopy (EGD) History of left hip replacement History of left knee replacement History of lumbosacral spine surgery X 2. L3-S1 decompression fusion 12/19/2017: Grade 1 view, MAC#3, ETT#7.0. T11-12 decompression fusion 08/20/2019: Grade 1 view, MAC#3, ETT#7.0. No postop issues per anesthesia progress note. History of right knee joint replacement Hx of left cataract extraction Hx of right cataract extraction Past Anesthesia History No Hx of Anesthesia Complications and No Family Hx of Anesthesia Complications History of PONV No Hx of PONV and No Hx of Motion Sickness Social History Smoking Status: Never smoker Do You Dip or Chew Tobacco: No Hx Alcohol Use: No Hx Substance Use: No Review of Systems Patient denies chest pain, shortness of breath, dyspnea on exertion, snoring, witnessed apneas, fever, chills, cough, wheezing, or palpitations. Physical Exam Vital Signs Vitals BP 150/70 P 61 TEMP 98.3 SP02 96% on RA RESP 17 Physical Full cervical extension range of motion without pain Full TMJ range of motion TMD 3.5 finger breaths Mallampati Score 2 Dentition: edentulous Lungs: normal respiratory effort. Clear throughout to auscultation, no adventitious breath sounds Cardiac: regular rate and rhythm, no murmurs noted Carotid arteries: negative bruit bilat Lab Results Anesthesia Preop Results Results Anesthesia Widget: WBC 5.11 K/uL (4.8-10.8) 01/14/22 Hgb 11.9 g/dL (12.0-16.0) L 01/14/22 Hct 37.3 % (37-47) 01/14/22 Plt 244 K/uL (130-400) 01/14/22 Na 142 mmol/L (136-145) 01/14/22 K 3.8 mmol/L (3.5-5.1) 01/14/22 Cl 106 mmol/L (98-107) 01/14/22 CO2 29 mmol/L (21-32) 01/14/22 BUN 14 mg/dl (6-23) 01/14/22 Creat 0.77 mg/dl (0.6-1.2) 01/14/22 Glucose Level 71 mg/dl (70-99(Fasting)) 01/14/22 PT 11.0 Seconds (9.0-12.0) 01/14/22 PTT 32.3 Seconds (21.0-31.0) H 01/14/22 INR 1.0 (0.9-1.1) 01/14/22 Urine Color Yellow 01/14/22 Urine Appearance Clear (Clear) 01/14/22 Urine pH 6.0 (4.5-7.5) 01/14/22 Urine Specific Almond 1.007 (1.000-1.030) 01/14/22 Urine Protein Negative (Negative) 01/14/22 Urine Glucose (UA) Negative (Negative) 01/14/22 Urine Ketones Negative (Negative) 01/14/22 Urine Blood Negative (Negative) 01/14/22 Urine Nitrite Negative (Negative) 01/14/22 Urine Bilirubin Negative (Negative) 01/14/22 Urine Urobilinogen Negative (Negative) 01/14/22 Urine Leukocyte Esterase Negative (Negative) 01/14/22 Blood Type O Positive 01/14/22 Antibody Screen NEGATIVE 01/14/22 Testing Electrocardiogram Date: 09/26/21 Sinus rhythm with 1st degree AV block with PACs, rate 73 bpm anterior infarct, now present when compared with ECG of 09/11/2021 Chest X-Ray Date: 01/14/22 Frontal and lateral radiographs of the chest demonstrate the cardiomediastinal silhouette to be within normal limits. The lungs are clear of alveolar opacities. There is no evidence for effusion bilaterally. There is no evidence for vascular congestion. There is no acute osseous pathology. The patient is status post interval internal fixation of lower thoracic spine. IMPRESSION: 1. No acute cardiopulmonary disease. Echocardiogram Date: 09/25/21 EF 50% Moderate mitral regurgitation Moderate tricuspid regurgitation Mild to moderately increased PASP, 45-50 mmHg Mild pulmonic regurgitation Moderate biatrial enlargement Stress Test Date: 10/26/21 Pharmacologic MPHR 69% Normal myocardial thickening and wall motino, negative for ischcemia EF 67% Other Testing Carotid doppler 09/19/2021 Mild atherosclerotic changes in both carotid sytems without evidence of hemodynamically significant stenosis
--- NOTE | 2022-01-15 16:09 | History & Physical Report ---
Date of Service January 15, 2022 Assessment & Plan (1) Degenerative joint disease of right hip: Plan: Postoperative prescriptions for pain medication and Coumadin will be provided at discharge from the hospital. Anticipate discharge to home or jail facility. She has already seen her variety saw operator and PCP for medical clearance. The patient is aware of the COVID-19 risks associated with surgery. She is currently asymptomatic of any COVID-19 symptoms. She will obtain nasal swab testing on Friday. PDMP was checked and there are no concerning findings. She will attend [facility] for preoperative testing. She already has access to a walker and cane. History of Present Illness Chief Complaint: Right hip pain Primary Care Provider: Aixa Ortiz DO This 81-year-old female presents for her preoperative history and physical. She is scheduled to undergo a right total hip arthroplasty using dual mobility cup on 01/23/2022. The patient has had right hip pain since mid-October. No trauma. She denies any falls. She initially thought it was related to her back. Pain starts along her buttock and extends into the lateral thigh and is most severe in her groin. She notes limited motion of the hip secondary to pain. She states she is in agony. She has tried OTC medications as well as activity modification without improvement. Pain is worse with weightbearing. No numbness or tingling. She has a history of left total hip arthroplasty done in 2009 and has done well with it. She elects to proceed with the same on the right. Preoperative imaging has been obtained. Allergies Allergy/AdvReac Type Severity Reaction Status Date / Time aspirin Allergy Intermediate RASH-regular Verified 01/14/22 11:18 aspirin in large doses ciprofloxacin Allergy Intermediate ITCHING Verified 01/10/22 10:53 ALL OVER BODY penicillin G Allergy Intermediate HIVES Verified 01/10/22 10:53 oxycodone Allergy Unknown R HAND Verified 01/10/22 10:53 WENT WEAK, NO MOTOR SKILL cyclobenzaprine AdvReac Mild sedation Verified 01/10/22 10:53 per PCP note prednisone AdvReac Mild LOOPY Verified 01/10/22 10:53 DISORIENTED Nqbgron-[id number]-TwL Reductase AdvReac Mild MUSCLE Verified 01/10/22 10:53 Inhibitor ACHES [Aychupc-Xuk-Zrk Reductase Inhibitor] clarithromycin AdvReac Unknown FELT OUT Verified 01/10/22 10:53 OF SPACE Home Medications Medication Instructions Recorded Confirmed Type acetaminophen 500 mg tablet 1,000 mg PO BID 08/04/19 01/10/22 History ascorbic acid (vitamin C) 500 mg 500 mg PO QAM 08/04/19 01/10/22 History tablet aspirin 81 mg tablet,delayed 81 mg PO QAM 08/04/19 01/10/22 History release (Aspirin Low Dose) cholecalciferol (vitamin D3) 125 5,000 unit PO QAM 08/04/19 01/10/22 History mcg (5,000 unit) tablet (Vitamin D3) cinnamon bark 500 mg capsule 500 mg PO QAM 08/04/19 01/10/22 History (Cinnamon) conjugated estrogens 0.625 mg/gram 0.3125 mg VAGINAL 2XWK 08/04/19 01/10/22 History vaginal cream (Premarin) donepezil 5 mg tablet (Aricept) 10 mg PO QAM 08/04/19 01/10/22 History latanoprost 0.005 % eye drops 1 drp OPHTHALMIC (EYE) HS 08/04/19 01/10/22 History multivitamin 1 tab PO QAM 08/04/19 01/10/22 History nifedipine 60 mg tablet,extended 60 mg PO QAM 08/04/19 01/10/22 History release 24 hr (Procardia XL) oxybutynin chloride 5 mg tablet 5 mg PO HS 08/04/19 01/10/22 History pravastatin 20 mg tablet 20 mg PO HS 08/04/19 01/10/22 History pregabalin 75 mg capsule (Lyrica) 100 mg PO TID 08/04/19 01/10/22 History tramadol 50 mg tablet 50 mg PO Q6H PRN #30 tab 08/21/19 01/10/22 Rx metoprolol succinate 25 mg 12.5 mg PO BID 01/10/22 01/10/22 History tablet,extended release 24 hr Past Med/Surg History Medical History Anemia Chronic kidney disease Depression Pt denies GERD (gastroesophageal reflux disease) controlled, stable per pt Glaucoma Hiatal hernia High pulmonary arterial pressure "mild to moderately increased PASP, 45-50 mmHg" 09/2021 echo History of blood transfusion 2018 post-op History of syncope 2018 felt 2/2 acute blood loss post-op/no issues since Hyperlipidemia Hypertension controlled, stable per pt Mitral regurgitation moderate Prediabetes per 2020 PCP [facility] records, listed as type 2 DM previously in chart 2019, A1c 5.7% 02/2021 Presence of pessary PT CONFIRMED-CHANGED Q 6 MONTHS Spinal stenosis Subclinical hypothyroidism Transient ischemic attack (TIA) most recent 2006 Tricuspid regurgitation moderate Urinary urgency Surgical History History of esophagogastroduodenoscopy (EGD) History of left hip replacement History of left knee replacement History of lumbosacral spine surgery X 2. L3-S1 decompression fusion 12/19/2017: Grade 1 view, MAC#3, ETT#7.0. T11-12 decompression fusion 08/20/2019: Grade 1 view, MAC#3, ETT#7.0. No postop issues per anesthesia progress note. History of right knee joint replacement Hx of left cataract extraction Hx of right cataract extraction Family History Mother , age 100 Old age Father Aneurysm Social History Smoking Status: Never smoker Second Hand Exposure: No; Hx Alcohol Use: No Hx Substance Use: No Preferred Language: [place] Communication Ability: Effective Fiber Analyst Required: No Beliefs That Will Affect Care: None marital status: / Current Living Situation: Alone current occupational status: retired Feels Safe at Home: Yes Assistive Devices: Cane, Denture - Upper, Denture - Lower and Glasses Review of Systems Review of Systems: All systems reviewed & are unremarkable except as noted in HPI & below A total of 10 systems were reviewed. Physical Exam Physical Exam: Vitals: Height 144.5 cm, weight 78.87 kg, BMI 37.7. Temperature 36.0, BP 160/90, pulse 71, O2 sat 97% on room air, respirations 18. General: Well-developed, well-nourished, elderly female in no acute distress. Sitting in a wheelchair. Alert and oriented. Skin: Warm and dry with good turgor. No rashes or lesions. No ecchymosis or erythema. HEENT: Normocephalic, atraumatic. Eyes: PERRLA, EOMI. Nares and oropharynx exams deferred due to COVID precautions. Heart: irregular, significant 3/6 murmurs are noted. No gallops or rubs. Lungs: Clear to auscultation bilaterally. No crackles, rhonchi or wheezing. Good air movement. Abdomen: moderately obese. Bowel sounds present x4, soft, nontender. No organomegaly. No masses. Musculoskeletal: Right hip evaluation reveals no obvious asymmetry or deformity. She has significant limitation in motion secondary to pain. She has discomfort with palpation over the greater trochanter as well as into the groin. She also has pain with palpation of the external rotators. External rotation of only around 15 degrees, internal rotation of around 10 degrees. Hip flexion to 90 degrees with significant onset of pain. There is difficulty ambulating. Neurologic: Gross sensation is intact across both lower extremities by soft touch. Peripheral pulses are 2+. Results & Data Results & Data ([facility]) Diagnostic Findings Radiographic imaging obtained today shows end-stage DJD of the right hip. Periarticular osteophytes, subchondral sclerosis, and joint space narrowing are all present. Lumbar hardware is visible on film. Code Status & VTE Plan VTE Prophylaxis Plan VTE Prophylaxis will be ordered: Yes
[2022-01-23] MEDS ORDERED: LR 60ML/HR IV SCH (06:00)
[2022-01-23] MEDS ORDERED: ROPIVACAINE 0.5% HCL/PF 150 MG, BUPIVACAINE 0.75% MPF 20 ML, EPINEPHrine 0.15 MG, dexAM... INFIL SCH (06:00)
[2022-01-23] MEDS ORDERED: VANCOMYCIN HCL 1,000 MG/270 ML BAG IV SCH (06:00)
[2022-01-23] MEDS ORDERED: TRANEXAMIC ACID 1,000 MG **IV Intra-op IV SCH (06:00)
--- NOTE | 2022-01-23 06:24 | History & Physical Bridge Note ---
Date of Service January 23, 2022 History & Physical Bridge Note I have examined the patient, reviewed the History & Physical and in the interval since the performance of the History & Physical I have noted the following changes of clinical significance: consent obtained/site verified/covid screen negative.no changes noted
[2022-01-23] MEDS ORDERED: BUPIVACAINE 0.5 % 5 MG/1 ML PF 10ML VIAL ONE (06:30)
[2022-01-23] MEDS ORDERED: ONDANSETRON INJ 2 MG/ML 2 ML VIAL ONE (06:32)
[2022-01-23] MEDS ORDERED: LIDOCAINE 2% 2 ML VIAL/AMP(20MG/ML) INFIL ONE (06:32)
[2022-01-23] MEDS ORDERED: PROPOFOL IV EMULSION 10 MG/ML 20 ML VIAL IV ONE ×4 (06:32→06:35)
[2022-01-23] MEDS ORDERED: fentaNYL citrate 100 MCG/2 ML VIAL ONE (06:32)
[2022-01-23] MEDS ORDERED: ORTHO JOINT ANESTHETIC ONE (06:40)
--- NOTE | 2022-01-23 08:42 | Post Operative Brief Note ---
Immediate Post Op Note v1 Date of Surgery January 23, 2022 Pre & Post Diagnosis Operation Date: 01/23/22 07:00 Pre-Op Diagnosis: Degenerative joint disease of right hip Post-Op Diagnosis: Degenerative joint disease of right hip I identified the patient and participated in the time-out.: Yes Procedure Operation Date: 01/23/22 07:00 Actual Procedures p Right Total Hip Arthroplasty with Dual Mobility Cup(Right) - Devan Hays MD Surgeon Devan Hays MD Oceanography Professor Pamela/Maddy Estimated Blood Loss 100 Findings Consistent with Post-Op Diagnosis
--- NOTE | 2022-01-23 08:58 | Operative Report ---
Post Operative Report Pre & Post Diagnosis Operation Date: 01/23/22 07:00 Pre-Op Diagnosis: Degenerative joint disease of right hip Post-Op Diagnosis: Degenerative joint disease of right hip I identified the patient and participated in the time-out.: Yes Procedure Operation Date: 01/23/22 07:00 Actual Procedures p Right Total Hip Arthroplasty with Dual Mobility Cup(Right) - Devan Hays MD Surgeon Edy Hays MD Circular Sawyer Stone Pamela/Maddy Estimated Blood Loss 100 Findings Consistent with Post-Op Diagnosis Consistent with post op diagnosis. Specimens No specimens Description of Procedure I participated in prepping dressing and assisted Dr. Hays during the procedure. Please see Dr. Hays note. I attest to the content of the Intraoperative Record and any orders documented therein. Any exceptions are noted below. Supervising Physician Co-Signing Physician Notes Dr. Hays
--- NOTE | 2022-01-23 08:59 | Operative Report ---
Post Operative Report Pre & Post Diagnosis Operation Date: 01/23/22 07:00 Pre-Op Diagnosis: Degenerative joint disease of right hip Post-Op Diagnosis: Degenerative joint disease of right hip I identified the patient and participated in the time-out.: Yes Procedure Operation Date: 01/23/22 07:00 Actual Procedures p Right Total Hip Arthroplasty with Dual Mobility Cup(Right) - Devan Hays MD Surgeon NORA Hays MD Press Helper Pamela/Maddy Estimated Blood Loss 100 Findings Consistent with Post-Op Diagnosis see operative report Specimens see operative report Drains none Complications none Disposition Accompanied Patient To Recovery: Yes Indications This 81-year-old female presented to the office with complaints of persisting right hip pain. She had tried conservative care measures without improvement. The pain was a severely affecting her ADLs. She elected to proceed with surgical intervention after being educated about potential risks and outcomes. Preoperative imaging was obtained. Description of Procedure Patient was administered a spinal anesthetic and then taken to the operating room where she was given sedation. She was prepped and draped in the usual sterile fashion. Please see Dr. Hays's operative report for specifics of the procedure. I was present for the entire case from initial patient positioning through final wound closure. Assistance was provided in tissue retraction, hemostasis, trial implant placement, final implant placement, and final wound closure. Patient was taken to the recovery room in satisfactory condition. I attest to the content of the Intraoperative Record and any orders documented therein. Any exceptions are noted below.
--- NOTE | 2022-01-23 09:11 | Operative Report (OR) ---
DATE OF PROCEDURE: 01/23/2022. SURGEON: Devan Hays MD. FLESHING MACHINE OPERATOR: Daljit Santiago MD. SECOND FLESHING MACHINE OPERATOR: Brain Castañeda PA-C. PREOPERATIVE DIAGNOSIS: Osteoarthritis, right hip. POSTOPERATIVE DIAGNOSIS: Osteoarthritis, right hip. OPERATION PERFORMED: Noncemented right total hip replacement using dual mobility components. SUMMARY OF IMPLANTS: Depuy/JJ Size 52 cup, size 25 x 6.5 screw, 52 dual mobility liner, 22 x 45 dual mobility poly liner, 3 standard Tri-Lock 22.225+4 head. ESTIMATED BLOOD LOSS: Roughly 100 mL. CRYSTALLOID: Per anesthesia. PERIOPERATIVE SITUATION: Medically cleared female with intractable right hip pain who presents with severe pain. X-rays revealed end-stage disease. She is very limited in her mobility. She had a back fusion. She had a pelvic fracture, so she is at high risk for instability. She had her other side done, which has done well for over a decade. At this point in time, wants to proceed with surgical treatment. Due to her recent back fusion, we would use a dual mobility implant. DESCRIPTION OF PROCEDURE: The patient was appropriately identified, site verified, consent verified. Antibiotics were confirmed as being given. The right lower extremity was prepped and draped in the usual routine fashion. That side was already long based on her pelvic fracture. Posterior approach to the hip was then made. Blunt dissection carried down to the fascia. This was then incised under direct vision. Retractor placed. Care was taken to protect the sciatic nerve. The short external rotators were then released and preserved. The capsule was then teed and preserved. The hip was then dislocated. The femoral neck was resected. Capsule anteriorly was released. The retractors were then placed with the femur out of the way with excellent exposure. All soft tissue removed from the acetabulum. Serial reaming carried up to 52 and a 52 cup impacted into appropriate inclination and anteversion. It was then secured with an additional 6.5 x 25 screw with excellent purchase. Trial liner was then seated. The femur was then flexed, internally rotated and prepared with a box gluer, canal finder, lateralizing rasp, and broaching up to a size 3. The trial head was then seated and the hip was stable in all planes and leg lengths were just about matched the preop. The hip was then dislocated. All the trial elements were removed. The wound was irrigated. The permanent liner was then seated with care taken to put it in the appropriate positioning. Roughly 275 degrees of visualization was identifiable as being good and the other was palpated, which felt good. The wound was then irrigated. Femur flexed, internally rotated, the permanent implant seated, the permanent head and neck seated. The hip reduced. It was stable in all planes. Leg lengths were good. The wound was then irrigated one final time and the quadratus femoris, short external rotators and capsule were all closed, then closed the space. The fascia was then closed as well. In all of this, used #2 Vicryl. The subcutaneous layer was then closed in multiple layers using #2 Vicryl and 2-0 Vicryl. The Orthomix was injected only superficially. Skin was then closed with adriana and then had retention 2-0 Prolene sutures. Appropriate dressing applied. The patient was transferred to recovery room in satisfactory condition, having tolerated the procedure well. DVT prophylaxis per protocol. Pathology pending on bone. Job ID: [id number] [facility]
[2022-01-23] MEDS ORDERED: ATROPINE SULFATE 0.1 MG/ML 10ML SYR IV PRN (09:16)
[2022-01-23] MEDS ORDERED: ePHEDrine sulfate 50 MG/ML AMP IV PRN (09:16)
--- NOTE | 2022-01-23 09:24 | Progress Notes ---
DATE OF SERVICE: 01/23/2022. SUBJECTIVE: Postop check status post right total hip replacement. At this point in time, the patien t is doing well. Denies any chest pain, shortness of breath, fever, chills, nausea, vomiting or head ache. She feels a little cold. OBJECTIVE: VITAL SIGNS: Stable. She is afebrile. Neurovascular check of femoral sciatic nerve is limited, but as wakening up from her spinal has toe m ovement. X-rays postop look excellent. ASSESSMENT AND PLAN: Overall doing well. Continue with postoperative care pathway. Mobilize. Cont act family. Job ID: [id number]
--- NOTE | 2022-01-23 09:43 | Anesthesiology Progress Note ---
Date of Service January 23, 2022 Anesthesia Post Procedure Vital Signs Vital Signs: Temp Pulse Pulse Resp BP Pulse Ox 01/23/22 09:30 36.5 C 64 17 135/65 100 01/23/22 09:20 66 12 134/64 100 01/23/22 09:10 72 13 129/76 100 01/23/22 09:00 36.2 C L 62 16 122/67 100 01/23/22 06:09 37 C 74 20 116/73 97 Pain Intensity Right Hip: Pain Intensity: 10 Transfer of Care Handoff Completed per policy Notes Mental Status: alert / awake / arousable Patient Amnestic to Procedure: Yes Nausea / Vomiting: adequately controlled Pain: adequately controlled Airway Patency, RR, SpO2: stable & adequate BP & HR: stable & adequate Hydration State: stable & adequate Neuraxial Anesthesia: was administered and sensory block is resolving Anesthetic Complications: no major complications apparent
--- NOTE | 2022-01-23 10:20 | XRay Report ---
AP PELVIS History: Right total hip arthroplasty. Degenerative arthritis. Postop. FINDINGS: The patient is status post a right total hip arthroplasty. The hardware is intact. No fract ure or dislocation. Skin adriana are in place. Evidence for prior left total hip arthroplasty. Old po sttraumatic changes within the pubic rings. IMPRESSION: Right total hip arthroplasty. No evidence for hardware complication ACT 112: Negative or not required by law. Electronically signed by: Kingsley Silverman M.D. 01/23/2022 10:18 AM
[2022-01-23] MEDS ORDERED: NALOXONE HCL 0.4 MG/1 ML VIAL/CARP IV PRN (10:53)
[2022-01-23] MEDS ORDERED: SODIUM CHLORIDE 0.9% 1000ML 1,000 ML IV SCH (10:53)
[2022-01-23] MEDS ORDERED: bisacodyL 10 MG SUPP PR PRN (10:53)
[2022-01-23] MEDS ORDERED: diphenhydrAMINE 50 MG/ML VIAL IV PRN (10:53)
[2022-01-23] MEDS ORDERED: MAGNESIUM HYDROXIDE SUSP 30 ML UDC PO PRN (10:53)
[2022-01-23] MEDS ORDERED: ALUMINUM/MAGNESIUM SUSP 30 ML UDC PO PRN (10:53)
[2022-01-23] MEDS ORDERED: METOCLOPRAMIDE HCL INJ 5 MG/ML 2 ML VIAL IV PRN (10:53)
[2022-01-23] MEDS ORDERED: HYDROmorphone INJ 0.5 MG/0.5 ML SYR IV PRN (10:53)
[2022-01-23] MEDS ORDERED: ONDANSETRON INJ 2 MG/ML 2 ML VIAL IV PRN (10:53)
--- NOTE | 2022-01-23 11:23 | Discharge Summary (DS) ---
DATE OF ADMISSION: 01/23/2022 DATE OF POTENTIAL DISCHARGE: 01/24/2022 CHIEF COMPLAINT: Right hip pain. HISTORY OF PRESENT ILLNESS: Admitted for elective right total hip replacement for severe osteoarthritis. She is complicated by the fact that she has a back fusion with hardware as well as a pelvic fracture. As a result, dual mobility implant was selected. PREADMISSION ALLERGIES: INCLUDE ASPIRIN, CIPROFLOXACIN, PENICILLIN, OXYCODONE, CYCLOBENZAPRINE, PREDNISONE, STATINS, CLARITHROMYCIN. PREADMISSION MEDICATIONS: Include acetaminophen, vitamins, cholecalciferol, cinnamon bark, estrogen vaginal cream, donepezil 5 mg tablets 10 mg daily, eye drops latanoprost, nifedipine 60 mg extended release 24-hour, oxybutynin chloride 5 mg at bedtime, pravastatin 20 mg at bedtime, pregabalin 75 mg to 100 mg p.o. t.i.d., tramadol 50 mg q.6 hours p.r.n., metoprolol succinate 25 mg tablets 12.5 mg b.i.d. PAST MEDICAL AND PAST SURGICAL HISTORY: Remarkable for anemia, chronic kidney disease, depression, GERD, glaucoma, hiatal hernia, pulmonary hypertension, blood transfusion, syncope, hyperlipidemia, hypertension, mitral regurg, prediabetes, spinal stenosis, tricuspid regurg, TIAs, urinary urgency. FAMILY HISTORY: Again, remarkable for parents lived to old age. Father had an aneurysm. SOCIAL HISTORY: Reveals she does not smoke. She is a . Speaks Yoruba. She feels safe at home. She is retired. She does use a cane. Has dentures. Wears glasses. REVIEW OF SYSTEMS: Reveals no chest pain, shortness of breath, fever, chills, nausea, or vomiting. Postop x-rays look excellent. ASSESSMENT AND PLAN: Doing well status post right total hip replacement. Continue with postoperative care pathway. Discharge tomorrow if she does well overnight. Job ID: [id number] [facility]
[2022-01-23] MEDS: METOPROLOL SUCC 25MG EXT REL TAB PO SCH ×2 (13:02→21:20)
[2022-01-23] MEDS: MULTIVITAMIN TAB PO SCH (13:03)
[2022-01-23] MEDS: DONEPEZIL HCL 10 MG TAB PO SCH (13:03)
[2022-01-23] MEDS: DOCUSATE SODIUM 100 MG CAP PO SCH ×2 (13:03→21:19)
[2022-01-23] MEDS: NIFEdipine EXTENDED REL 30 MG TABCR PO SCH (13:03)
[2022-01-23] MEDS: ASPIRIN 81 MG ECTAB PO SCH (13:03)
[2022-01-23] MEDS: ACETAMINOPHEN 500 MG TAB PO SCH ×2 (13:03→21:20)
[2022-01-23] MEDS: traMADol HCL 50 MG TABLET PO PRN ×2 (13:11→19:39)
[2022-01-23] MEDS: PREGABALIN 100 MG CAP PO SCH ×2 (13:11→21:20)
[2022-01-23] MEDS: ORTHO WARFARIN NOMOGRAM SCH (13:18)
--- NOTE | 2022-01-23 13:37 | Progress Notes ---
DATE OF SERVICE: 01/23/2022 Postop check, is doing well. Neurovascular check, has completely normal femoral sciatic nerve functi on. Wound dressing clean, dry and intact. Hip is located. She is urinating a lot. She is eating a nd drinking. We will discontinue IV fluid. ASSESSMENT AND PLAN: Overall assessment is doing well status post right total hip replacement. At t his point in time, we will get her IV to be saline locked and start to mobilize her. Usual postural precautions. Job ID: [id number]
[2022-01-23] MEDS ORDERED: TRANEXAMIC ACID / 0.7% NACL 1,000 MG/100 ML BAG IV SCH (15:00)
[2022-01-23] MEDS ORDERED: WARFARIN SOD 5 MG TAB PO ONE (16:00)
[2022-01-23] MEDS: FERROUS GLUCONATE 324 MG TAB PO SCH (17:33)
[2022-01-23] MEDS: ASCORBIC ACID 500 MG TAB PO SCH (17:33)
[2022-01-23] MEDS ORDERED: VANCOMYCIN HCL 1,000 MG in SODIUM CHLORIDE 0.9% 250 ML IV SCH (19:00)
[2022-01-23] MEDS ORDERED: SENNA 8.6 MG TAB PO SCH (21:00)
[2022-01-23] MEDS ORDERED: OXYBUTYNIN CHLORIDE 5 MG TAB PO SCH (21:00)
[2022-01-23] MEDS ORDERED: PRAVASTATIN SOD 20 MG TAB PO SCH (21:00)
[2022-01-23] MEDS ORDERED: LATANOPROST 0.005% OP SOLN 2.5 ML BTL OPB SCH (21:00)
[2022-01-24] MEDS: traMADol HCL 50 MG TABLET PO PRN ×3 (05:21→14:19)
[2022-01-24] MEDS: ACETAMINOPHEN 500 MG TAB PO SCH ×2 (05:21→13:39)
[2022-01-24 06:56] LABS: Basophils # (auto) 0.02 K/uL (0-0.2); Basophils % (auto) 0.2 %; Eosinophils # (auto) 0.04 K/uL (0-0.5); Eosinophils % (auto) 0.4 %; Hematocrit (blood only) 32.7 % (37-47); Hemoglobin 10.3 g/dL (12.0-16.0); Immature Granulocytes # (auto) 0.03 K/uL (0.00-0.02); Immature Granulocytes % (auto) 0.3 %; Lymphocytes # (auto) 0.87 K/uL (1.2-3.4); Lymphocytes % (auto) 7.8 %; Mean Corpuscular Hemoglobin 30.8 pg (25-34); Mean Corpuscular Hgb Conc 31.5 g/dL (32-36); Mean Corpuscular Volume 97.9 fL (80-100); Mean Platelet Volume 10.1 fL (7.4-10.4); Monocytes % (auto) 11.7 %; Neutrophils # (auto) 8.85 K/uL (1.4-6.5); Neutrophils % (auto) 79.6 %; Platelet Count 176 K/uL (130-400); RDW Coefficient of Variation 13.4 % (11.5-14.5); RDW Standard Deviation 47.9 fL (36.4-46.3); Red Blood Count 3.34 M/uL (4.2-5.4); White Blood Count 11.11 K/uL (4.8-10.8)
--- NOTE | 2022-01-24 07:14 | Progress Notes ---
SUBJECTIVE: Postop check status post right total hip replacement with dual mobility implant. At this point, the patient is comfortable. She denies any excessive chest pain, shortness of breath, fever, chills, nausea, vomiting or headache. She notes that she feels stiff. OBJECTIVE: VITAL SIGNS: Stable. She is afebrile. Neurovascular check femoral sciatic nerve is normal. Hip is located. Wound dressing clean, dry and intact. LABORATORY DATA: A.m. laboratory work is stable. ASSESSMENT: Doing well. PLAN: To discharge to home today. D/C on coumdin 4 mg tablet daily repeat INR Friday.. Prevena with dressing change by PA later this morning. After PT, OT, can be discharged. Job ID: [id number] [facility]
[2022-01-24 07:21] LABS: BUN Creatinine Ratio 20.5 (10-20); Calcium 8.3 mg/dl (8.5-10.1); Creatinine Clr Calc Pharmacy 48.6 ml/min; Est GFR (African American) 70.9 ml/min; Est GFR (Non-African American) 61.2 ml/min
[2022-01-24] MEDS: NIFEdipine EXTENDED REL 30 MG TABCR PO SCH (07:52)
[2022-01-24] MEDS: METOPROLOL SUCC 25MG EXT REL TAB PO SCH (07:52)
[2022-01-24 07:59] LABS: Prothrombin Time 11.1 Seconds (9.0-12.0)
[2022-01-24] MEDS: DOCUSATE SODIUM 100 MG CAP PO SCH (08:34)
[2022-01-24] MEDS: ASPIRIN 81 MG ECTAB PO SCH (08:34)
[2022-01-24] MEDS: DONEPEZIL HCL 10 MG TAB PO SCH (08:34)
[2022-01-24] MEDS: PREGABALIN 100 MG CAP PO SCH ×2 (08:34→13:39)
[2022-01-24] MEDS: MULTIVITAMIN TAB PO SCH (08:34)
[2022-01-24] MEDS: FERROUS GLUCONATE 324 MG TAB PO SCH (08:35)
[2022-01-24] MEDS: ASCORBIC ACID 500 MG TAB PO SCH (08:35)
--- NOTE | 2022-01-24 09:05 | Orthopedic Progress Note ---
Date of Service January 24, 2022 Assessment & Plan (1) Status post total hip replacement, right: Plan: Patient's dressing was changed by me. Prevena wound VAC was placed. Her small skin tear posteriorly will be covered with triple antibiotic ointment and Telfa by nursing staff. They are aware. Anticipate discharge to home today with home health services, after PT/OT. Continue total hip precautions. Continue weightbearing as tolerated with her walker. Continue Coumadin per nomogram. She will receive her dose today prior to departure. She may resume the Coumadin tomorrow evening with dinner. Prescriptions for Tramadol and Coumadin have been sent to her pharmacy. Follow-up in the office next at 11:30 AM with me for wound VAC removal. Follow-up in the office in 2 weeks with me as scheduled for staple removal. Admission and Anticipated Discharge Date Admission Date: January 23, 2022 Subjective Patient is seen in her room this morning. She states she slept very well. States it was the best she has slept in weeks. She states she has less pain than she did before surgery. She does complain of some overall stiffness, but states it is minor compared to her previous pain. She denies any chest pain, nausea, vomiting, shortness of breath, or abdominal pain. She has been out of bed several times already. She feels ready to go home. Review of Systems Review of Systems: Unchanged from yesterday. Physical Exam Physical Exam: General: Well-developed, well-nourished, elderly female, in no acute distress. Sitting in bed. Eating her breakfast. Conversive. Skin: Warm and dry with good turgor. No rashes. She has an intact postsurgical dressing on the right hip. Upon removal, there is scant dried blood on her dressing. No active bleeding. No ecchymosis or edema. Mishel and sutures are intact. She does have a small area on the posterior thigh where superficial skin has torn off with her postsurgical dressing. It is approximately 2 cm x 2 cm. Musculoskeletal: Patient has supple motion of her right hip. She is able to get herself out of bed and stand with her walker. She has intact motor function to the hip, knee, and ankle. Neurologic: Gross sensation is intact across the right leg by soft touch. Results & Data ([facility]) Vital Signs (Past 12 Hours) Vital Signs Temp Pulse Resp BP Pulse Ox 01/24/22 06:56 37.1 C 73 18 94/52 L 96 01/24/22 05:35 100/57 L 01/24/22 05:30 70 88/50 L 93 01/24/22 03:36 37.1 C 77 16 110/64 92 01/23/22 22:35 37.1 C 71 16 108/63 95 Laboratory Results CBC obtained this morning shows a white count of 11.1, hemoglobin 10.3, hematocrit 32.7. INR of 1.0. Partial renal panel is unremarkable. Potassium 4.0, sodium 136, BUN 18, creatinine 0.88. Glucose is 172.
[2022-01-24] MEDS: ORTHO WARFARIN NOMOGRAM SCH (13:58)
[2022-01-24] MEDS ORDERED: WARFARIN SOD 5 MG TAB PO ONE (16:00)
== END 2022-01-24 15:36 | disposition home health service (06) ==
LOC: ASU 05:14 → 3E 05:14